=== PATIENT | male | born 1970 | race Caucasian/White ===

== ENCOUNTER 2017-03-03 12:02 | Emergency (ER) | payer OTHER ==
--- OUTSIDE RECORDS SUMMARY | 2017-03-03 12:13 | XMS REPORT ---
:1970 External Reference #:[id number] Author Organization [facility] Address [address] [address] Phone [phone] Care Team Providers Name Role Phone Cezar Giraldo III, MD Primary Care Physician Unavailable Payers Type Date Identification Numbers Payment Provider Subscriber Commercial Effective: Policy Number: Pancho Elizalde 2014 [id number] Group Name: [id number] [address] PayID: [id number] [place] [address] Problems Date Description Provider Status Onset: 09/10/2014 Ankylosing spondylitis Cezar Giraldo M.D. Active Onset: 09/10/2014 Benign localized hyperplasia of Cezar Giraldo M.D. Active prostate Onset: 09/10/2014 Anxiety state Cezar Giraldo M.D. Active Onset: 09/10/2014 Allergic rhinitis Cezar Giraldo M.D. Active Onset: 08/17/2016 Disturbance in sleep behavior Radha Rubio MD Active Onset: 01/03/2017 Obstructive sleep apnea Radha Mar DNP, RN, Active syndrome PIECE HAND-BC Onset: 01/03/2017 Hypoxemia Radha Mar DNP, RN, Active [facility] HAND-BC Onset: 01/03/2017 Hypersomnia Radha Mar DNP, RN, Active [facility]IECE HAND-BC Onset: 01/04/2017 Benign prostatic hypertrophy Cezar Giraldo M.D. 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 [employer] Cigarette Use Never Smoked Cigarettes ETOH Use Occasionally consumes alcohol Smoking Patient has never smoked Recreational Drug Use Denies Drug Use Daily Caffeine Consumes on average 48oz of iced tea per day Exercise Type/Frequency Exercises sporadically Exercise Type/Frequency Walks sporadically Allergies, Adverse Reactions, Alerts Date Description Reaction Status Severity Comments 09/10/2014 NKDA active Medications Medication Date Status Form Strength Qnty SIG Indications Ordering Provider Blood Pressure 01/02 Active Misc 1unit large cuff bp R03.0 Cezar Nevarez Monitor /2016 s machine for Kristal, Digital/Manual home bp M.D. Inflate monitoring Oxybutynin Active Tablets 10mg once a day Unknown Chloride ER /0000 ER 24HR Tamsulosin HCL Active Capsules 0.4mg once a day Unknown / Nystatin Active Powder [id number] bid as needed Unknown / t/GM Amitriptyline Active Tablets 10mg 1 tab po Unknown HCL /0000 every night Aleve Active Tablets 220mg as needed Unknown /0000 Testosterone Active Solution 100mg/ml 1 milliliters Unknown Cypionate / intramuscular for 14 days Lexapro Active Tablets 20mg 1 by mouth Unknown /0000 every day Buspirone HCL Active Tablets 15mg take one Unknown /0000 tablet by mouth twice a day Lidocaine 07/07 Hx Patches 5% 30uni apply patch M54.5 Cezar Rivera. /2016 ts up to 12 Kristal, - hours once a M.D. . 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 as needed 12/31 spasm Guaifenesin-Code 04/20 Hx Solution 100-10mg/ 118ml take 10 R05 Zsofia ine 5ML milliliters Kilo, - by mouth PIECE HAND 06/20 every evening with plenty of water as needed for cough for 7 days as needed Amoxicillin/Clav 04/20 Hx Tablets 875-125mg 14tab take 1 tab by J06.9 Zsofia ulanate /2016 s mouth twice a Kilo, Potassium - day for 7 PIECE HAND Oseltamivir 04/13 Hx Capsules 75mg 10cap 1 po bid Chilo Lopez Joann Stanley M.D.,FACP 04/18 Ciprofloxacin 00/ Hx Tablets 500mg Unknown HCL /0000 - 10/[address] HCL Hx C[address] 60mg 30cap once a day Cezar Nevarez /0000 Joann Meyers M.D. 06/20 Ibuprofen 00 Hx Capsules 200mg as needed Unknown /0000 - 07/28 Immunizations CPT Code Status Date Vaccine Lot # [id number] Given 12/19/2015 Tdap - Tetanus/Diptheria/Acellular Pertussis Vital Signs Date Vital Result Comment 02/01/2017 Weight 265.00 lb Heart Rate 85 /min BP Systolic Sitting 145 mmHg BP Diastolic Sitting 105 mmHg Body Temperature 97.1 F O2 % BldC Oximetry 96 % 01/04/2017 Height 72.25 inches 6'0.25" Weight 274.00 lb Heart Rate 92 /min BP Systolic Sitting 144 mmHg BP Diastolic Sitting 104 mmHg Body Temperature 98.3 F O2 % BldC Oximetry 97 % BMI (Body Mass Index) 36.9 kg/m2 01/03/2017 Height 73 inches 6'1" Weight 272.25 lb no shoes Heart Rate 90 /min BP Systolic Sitting 146 mmHg Lue large cuff BP Diastolic Sitting 90 mmHg Lue large cuff Respiratory Rate 18 /min O2 % BldC Oximetry 98 % On Ra BMI (Body Mass Index) 35.9 kg/m2 01/02/2017 Height 73 inches 6'1" Weight 275.00 lb Heart Rate 85 /min BP Systolic Sitting 148 mmHg BP Diastolic Sitting 94 mmHg Body Temperature 97.3 F O2 % BldC Oximetry 97 % BMI (Body Mass Index) 36.3 kg/m2 08/17/2016 Height 73 inches 6'1" Weight 278.00 lb Heart Rate 90 /min BP Systolic Sitting 142 mmHg BP Diastolic Sitting 94 mmHg Respiratory Rate 20 /min O2 % BldC Oximetry 96 % Room Air BMI (Body Mass Index) 36.7 kg/m2 Neck Circumference in inches 18 07/29/2016 Height 73 inches 6'1" Weight 276.00 lb Heart Rate 92 /min BP Systolic 130 mmHg BP Diastolic 90 mmHg Body Temperature 98.1 F O2 % BldC Oximetry 97 % BMI (Body Mass Index) 36.4 kg/m2 07/07/2016 Weight 268.00 lb Heart Rate 84 /min BP Systolic Sitting 138 mmHg BP Diastolic Sitting 80 mmHg Respiratory Rate 15 /min Body Temperature 98.0 F O2 % BldC Oximetry 98 % 06/21/2016 Weight 270.25 lb Heart Rate 86 /min BP Systolic 140 mmHg BP Diastolic 90 mmHg Body Temperature 98.4 F O2 % BldC Oximetry 96 % 04/20/2016 Weight 256.25 lb Heart Rate 111 /min BP Systolic Sitting 162 mmHg BP Diastolic Sitting 112 mmHg Body Temperature 97.5 F O2 % BldC Oximetry 98 % 04/13/2016 Weight 262.00 lb Heart Rate 76 /min BP Systolic Sitting 128 mmHg BP Diastolic Sitting 82 mmHg Respiratory Rate 15 /min Body Temperature 97.6 F O2 % BldC Oximetry 98 % 04/04/2016 Weight 264.00 lb Heart Rate 88 /min BP Systolic Sitting 148 mmHg BP Diastolic Sitting 90 mmHg Respiratory Rate 15 /min Body Temperature 98.0 F O2 % BldC Oximetry 98 % 02/24/2016 Weight 267.00 lb Heart Rate 89 /min BP Systolic 140 mmHg BP Diastolic 100 mmHg Body Temperature 97.0 F O2 % BldC Oximetry 98 % 10/29/2015 Weight 266.00 lb Heart Rate 78 /min BP Systolic Sitting 156 mmHg BP Diastolic Sitting 80 mmHg Body Temperature 97.8 F O2 % BldC Oximetry 98 % 07/29/2015 Weight 256.00 lb Heart Rate 90 /min BP Systolic Sitting 130 mmHg BP Diastolic Sitting 84 mmHg Body Temperature 97.3 F O2 % BldC Oximetry 99 % 05/29/2015 Weight 258.00 lb Heart Rate 105 /min BP Systolic Sitting 154 mmHg BP Diastolic Sitting 88 mmHg Body Temperature 96.2 F 04/08/2015 Weight 265.00 lb Heart Rate 91 /min BP Systolic Sitting 148 mmHg BP Diastolic Sitting 88 mmHg Body Temperature 97.3 F O2 % BldC Oximetry 98 % 10/22/2014 Height 73 inches 6'1" Weight 250.50 lb Heart Rate 89 /min BP Systolic Sitting 130 mmHg BP Diastolic Sitting 90 mmHg Body Temperature 96.4 F Pain Level 7 O2 % BldC Oximetry 98 % BMI (Body Mass Index) 33.0 kg/m2 09/10/2014 Height 73 inches 6'1" Weight 254.50 lb Heart Rate 73 /min BP Systolic Sitting 132 mmHg 144/106 initially BP Diastolic Sitting 94 mmHg 144/106 initially Body Temperature 97.8 F O2 % BldC Oximetry 98 % BMI (Body Mass Index) 33.6 kg/m2 Results Test Date Test Result H/L Range Note Comp Metabolic Panel 01/26/2017 Sodium 138 mmol/L 133-145 Potassium 4.3 mmol/L 3.5-5.0 Chloride 103 mmol/L 101-111 Co2 Carbon Dioxide 29 mmol/L 22-32 Anion Gap 6 mmol/L 2-11 Glucose 82 mg/dL 70-100 Blood Urea Nitrogen 8 mg/dL 6-24 Creatinine 0.87 mg/dL 0.67-1.17 BUN/Creatinine Ratio 9.2 8-20 Calcium 9.1 mg/dL 8.6-10.3 Total Protein 6.9 g/dL 6.4-8.9 Albumin 4.1 g/dL 3.2-5.2 Globulin 2.8 g/dL 2-4 Albumin/Globulin Ratio 1.5 1-3 Total Bilirubin 0.80 mg/dL 0.2-1.0 Alkaline Phosphatase 54 U/L 34-104 Alt 26 U/L 7-52 Ast 24 U/L 13-39 Egfr Non- 95.3 >60 Egfr 122.6 >60 1 Lipid Profile (Trig/Chol/HDL) 01/26/2017 Triglycerides 311 mg/dL 2 Cholesterol 189 mg/dL 3 HDL Cholesterol 34.0 mg/dL 4 LDL Cholesterol 93 mg/dL 5 Rapid Influenza A & B 04/13/2016 Influenza A Molecular POSITIVE Negative 6 Molecular Influenza B Molecular NEGATIVE Negative Laboratory test 04/13/2016 Influenza A & B SEE RESULT BELOW 7 finding Request Testosterone Free 11/11/2015 Free Testosterone 7.01 ng/dL 4.46-17.1 8 & Total ng/dl Testosterone 219 ng/dL 240-950 9 CBC Auto Diff 04/08/2015 White Blood Count 7.4 10^3/uL 3.5-10.8 Red Blood Count 4.76 10^6/uL 4.0-5.4 Hemoglobin 15.0 g/dL 14.0-18.0 Hematocrit 44 % 42-52 Mean Corpuscular Volume 92 fL 80-94 Mean Corpuscular Hemoglobin 32 pg High 27-31 Mean Corpuscular HGB Conc 34 g/dL 31-36 Red Cell Distribution Width 13 % 10.5-15 Platelet Count 263 10^3/uL 150-450 Mean Platelet Volume 9 um3 7.4-10.4 Abs Neutrophils 4.7 10^3/uL 1.5-7.7 Abs Lymphocytes 1.9 10^3/uL 1.0-4.8 Abs Monocytes 0.5 10^3/uL 0-0.8 Abs Eosinophils 0.1 10^3/uL 0-0.6 Abs Basophils 0 10^3/uL 0-0.2 Abs Nucleated RBC 0.01 10^3/uL Granulocyte % 64.2 % 38-83 Lymphocyte % 26.2 % 25-47 Monocyte % 7.0 % 1-9 Eosinophil % 2.0 % 0-6 Basophil % 0.6 % 0-2 Nucleated Red Blood Cells % 0.1 Laboratory test finding 04/08/2015 C Reactive Protein 5.18 mg/L High < 5.00 10 Erythrocyte Sed Rate 15 mm/Hr High 0-14 Lyme Disease Serology Negative Negative 11 TSH (Thyroid Stim Horm) 2.45 ?IU/mL 0.34-5.60 Basic Metabolic Panel 10/17/2014 Sodium 137 mmol/L 133-145 Potassium 4.1 mmol/L 3.5-5.0 Chloride 104 mmol/L 101-111 Co2 Carbon Dioxide 25 mmol/L 22-32 Anion Gap 8 mmol/L 2-11 Glucose 88 mg/dL 70-100 Blood Urea Nitrogen 10 mg/dL 6-24 Creatinine 0.92 mg/dL 0.67-1.17 BUN/Creatinine Ratio 10.9 8-20 Calcium 9.4 mg/dL 8.6-10.3 Egfr Non- 90.2 >60 Egfr 116.0 >60 12 Lipid Profile (Trig/Chol/HDL) 10/17/2014 Triglycerides 207 mg/dL 13 Cholesterol 207 mg/dL 14 HDL Cholesterol 35.1 mg/dL 15 LDL Cholesterol 131 mg/dL 16 1 Because ethnic data is not always readily available, this report includes an eGFR for both -Americans and non- Americans. The National Kidney Disease Education Program (NKDEP) does not endorse the use of the MDRD equation for patients that are not between the ages of 18 and 70, are , have extremes of body size, muscle mass, or nutritional status, or are non- or non-. According to the National Kidney Foundation, irrespective of diagnosis, the stage of the disease is based on the level of kidney function: Stage Description GFR(mL/min/1.73 m(2)) 1 Kidney damage with normal or decreased GFR 90 2 Kidney damage with mild decrease in GFR 60-89 3 Moderate decrease in GFR 30-59 4 Severe decrease in GFR 15-29 5 Kidney failure <15 (or dialysis) 2 Desirable: <150 Borderline High: 150-199 High: 200-499 Very High: >500 3 Desirable: <200 Borderline High: 200-239 High: >239 4 Low: <40 Desirable: 40-60 High: >60 5 Desirable: <100 Near Optimal: 100-129 Borderline High: 130-159 High: 160-189 Very High: >189 6 Nut Steamer: [id number] BRUNO VASQUEZ 7 SEE RESULT BELOW Name: YISEL ELIZALDE : [address]: Anibal Roberto MD Acct: [id number] Unit: [id number] AGE: 45 Location: [facility] Re04/13/16 SEX: M Status: REG REF SPEC: [id number] TERE: 04/13/16-[address]: Chilo Roberto MD REQ: [id number] RECD: 04/13/16 STATUS: COMP _ SOURCE: [facility]: ORDERED: Flu A B Request COMMENTS: [id number] Procedure Result Reported Site Rapid Influenza A B Request Final 04/13/162030 ML Specimen received for Influenza A/B Molecular testing * ML - MAIN LAB ([facility]) . END OF REPORT * ML=Testing performed at Main Lab DEPARTMENT OF PATHOLOGY, [address] [place] [address] Arnulfo Galindo M.D. Director [facility] # [id number] 8 ADDITIONAL INFORMATION Testing performed by [facility]. This test was developed and its performance characteristics determined by [facility] in a manner consistent with CLIA requirements. This test has not been cleared or approved by the U.S. Food and Drug Administration. 9 ADDITIONAL INFORMATION Testing performed by Liquid Chromatography-Tandem Mass Spectrometry (LC-MS/MS). This test was developed and its performance characteristics determined by [facility] in a manner consistent with CLIA requirements. This test has not been cleared or approved by the U.S. Food and Drug Administration. Test Performed by: [place] [address] Hydraulic Press Operator: Farhat Yeung II, M.D., Ph.D. 10 Acute inflammation: >10.00 11 Serologic response to B. burgdorferi infection is not detected, but cannot rule out early infection during which low or undetectable antibody levels to B. burgdorferi may be present. If clinically indicated, a new serum specimen should be submitted in 7-14 days. Test Performed by: [place] [address] Hydraulic Press Operator: Farhat Yeung II, M.D., Ph.D. 12 Because ethnic data is not always readily available, this report includes an eGFR for both -Americans and non- Americans. The National Kidney Disease Education Program (NKDEP) does not endorse the use of the MDRD equation for patients that are not between the ages of 18 and 70, are , have extremes of body size, muscle mass, or nutritional status, or are non- or non-. According to the National Kidney Foundation, irrespective of diagnosis, the stage of the disease is based on the level of kidney function: Stage Description GFR(mL/min/1.73 m(2)) 1 Kidney damage with normal or decreased GFR 90 2 Kidney damage with mild decrease in GFR 60-89 3 Moderate decrease in GFR 30-59 4 Severe decrease in GFR 15-29 5 Kidney failure <15 (or dialysis) 13 Desirable <150 Borderline high 150-199 High 200-499 Very High >500 14 Desirable <200 Borderline high 200-239 High >239 15 Low <40 Desirable: 40-60 High: >60 16 Desirable: <100 mg/dL Near Optimal: 100-129 mg/dL Borderline High: 130-159 mg/dL High: 160-189 mg/dL Very High: >189 mg/dL Procedures Date CPT Code Description Status 12/12/2016 83359 Polysomnography Sleep Staging 4+ Parameters W/Cpap Completed Encounters Type Date Location Provider CPT E/M Dx Office Visit 01/04/2017 2:40p [facility] Internal Medicine Cezar Giraldo, [address]755 R03.0 - Alexis Crook E78.2 G47.33 M45.9 N40.0 F32.9 Office Visit 01/03/2017 1:45p Pul[facility]ology [facility] Sleep Radha Mar, 28508 G47.33 [facility] ISAURA RN, [facility]- G47.14 Office Visit 01/02/2017 2:00p [facility] Internal Medicine Cezar Giraldo, 69630 R03.0 Alexis Crook Office Visit 08/17/2016 8:00a [facility] [address] R09.02 [facility] R40.0 R12 R45.1 E66.09 Z68.36 Office Visit 07/29/2016 10:40a [facility] Internal Medicine Cezar Giraldo, [address]3466 M54.5 - Alexis Crook Office Visit 07/07/2016 4:00p [facility] Internal Medicine Cezar Giraldo, 48420 M54.5 - Alexis Crook Office Visit 06/21/2016 4:00p [facility] Internal Medicine Cezar Giraldo, 40980 M54.5 - Alexis Crook Office Visit 04/20/2016 11:00a [facility] Internal Medicine Armando Boateng, [facility] [address] J06.9 - [address] R05 J09.x2 Office Visit 04/13/2016 11:10a [facility] Internal Medicine Chilo Roberto, [address]185 J11.1 - [place] Dylan Crook,FACP Office Visit 04/04/2016 2:00p [facility] Internal Medicine Cezar Giraldo, 68162 R03.0 - Alexis Crook Office Visit 02/24/2016 4:20p [facility] Internal Medicine Cezar Giraldo, 54586 R03.0 - Alexis Crook J06.9 Office Visit 10/29/2015 1:00p [facility] Internal Medicine Cezar Giraldo, 40809 E29.1 - Alexis Crook F32.9 Office Visit 07/29/2015 4:20p [facility] Internal Medicine Cezar Giraldo, 95111 B35.1 - Andrzej Crook L30.9 Office Visit 05/29/2015 4:20p [facility] Internal Medicine Tracey Leslie M.D. 80967 J01.90 - Andrzej Office Visit 04/08/2015 11:40a [facility] Internal Medicine Cezar Giraldo, 06936 R51 - Andrzej Crook F41.9 Office Visit 10/22/2014 1:00p [facility] Internal Medicine Cezar Giraldo, 07144 724.2 - Andrzej Crook Office Visit 09/10/2014 10:40a [facility] Internal Medicine Cezar Giraldo, 67531 720.0 - Andrzej Crook 600.20 300.00 477.9 V77.1 V77.91 Plan of Care Future Appointment(s):03/03/2017 8:15 am - Radha Mar DNP, RN, PIECE HAND- at [facility]02/01/2017 - Cezar Giraldo M.D.R03.0 Elevated blood-pressure reading, w/o diagnosis of htnJ06.9 Acute upper respiratory infection, [id number] Mixed hyperlipidemia
[2017-03-03] MEDS ORDERED: NS 0.9% 1000 ML* 2,000 ML IV ONE (12:57)
[2017-03-03] MEDS ORDERED: Ondansetron INJ* 2 MG/ML VIAL IV ONE (12:57)
[2017-03-03 13:02] LABS: ABS Basophils 0 10^3/ul (0-0.2); ABS Eosinophils 0.1 10^3/ul (0-0.6); ABS Lymphocytes 1.7 10^3/ul (1.0-4.8); ABS Monocytes 0.3 10^3/ul (0-0.8); ABS Neutrophils 4.8 10^3/ul (1.5-7.7); ABS Nucleated RBC 0 10^3/ul; Eosinophil % 1.3 % (0-6); Hematocrit 43 % (42-52); Hemoglobin 15.2 g/dl (14.0-18.0); Lymphocyte % 23.9 % (25-47); Mean Corpuscular HGB Conc 35 g/dl (31-36); Mean Corpuscular Hemoglobin 32 pg (27-31); Mean Corpuscular Volume 90 fL (80-94); Mean Platelet Volume 8 um3 (7.4-10.4); Nucleated Red Blood Cells % 0.3; Platelet Count 261 10^3/ul (150-450); Red Blood Count 4.81 10^6/ul (4.0-5.4); Red Cell Distribution Width 13 % (10.5-15); White Blood Count 6.9 10^3/ul (3.5-10.8)
[2017-03-03 13:17] LABS: EGFR Non-African American 80.2 (>60)
[2017-03-03] MEDS ORDERED: Lidocaine 2% VISCOUS* 15 ML UDC PO ONE (13:27)
[2017-03-03] MEDS: Al Hydrox/Mg Hydrox/Simet LIQ* 30 ML UDC PO ONE ×2 (13:37→13:39)
[2017-03-03 15:14] LABS: Urine Appearance Clear; Urine Blood Negative (Negative); Urine Color Yellow; Urine Ketones Negative (Negative); Urine Protein Negative (Negative); Urine Specific Gravity 1.008 (1.010-1.030); Urine Urobilinogen Negative (Negative)
--- NOTE | 2017-03-03 15:59 | ED ---
Panchito Graham Nilda, scribed for Dimas Acuña MD on 03/03/17 at 1220 . Abdominal Pain/Male - HPI Summary HPI Summary: This patient is a 46 year old M sent from with a chief complaint of intermittent moderate diffuse abd pain for the past 3 days. The patient rates the pain 5/10 in severity. Symptoms aggravated by nothing, and alleviated by BM and flatulence. Patient reports increased flatus, diarrhea (began 3 days ago lasting until yesterday), diaphoresis (this morning), dizziness (yesterday), nausea, and loss of appetite (an erika and yogurt for past few days). Patient denies CP, SOB, and fever. Pt states he's currently on medications for thyroid, anxiety, depression, and prostate issues. PMHx includes GERD, and elevated BP. - History of Current Complaint Chief Complaint: EDAbdPain Stated Complaint: ABD PAIN Hx Obtained From: Patient Onset/Duration: Sudden Onset, Lasting Days - 3 days, Still Present Timing: Intermittent Severity Currently: Moderate Pain Intensity: 5 Pain Scale Used: 0-10 Numeric Location: Diffuse Radiates: No Aggravating Factor(s): Nothing Alleviating Factor(s): Bowel Movement, Other: - flatulence Associated Signs And Symptoms: Positive: Other - increased flatus, diarrhea ( began 3 days ago lasting until yesterday), diaphoresis (this morning), dizziness (yesterday), nausea, and loss of appetite (an erika and yogurt for past few days). Patient denies CP, SOB, and fever. 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 Negative: Fever, Chills Negative: Erythema Negative: Sore Throat Negative: Chest Pain Negative: Shortness Of Breath, Cough Positive: Abdominal Pain, Diarrhea, Nausea, Other - increased flatus, loss of appetite. Negative: Vomiting Negative: dysuria, hematuria Negative: Myalgia, Edema Negative: Rash Neurological: Other - dizziness All Other Systems Reviewed And Are Negative: Yes Physical Exam - Summary Physical Exam Summary: Constitutional: Well-developed, Well-nourished, Alert. (-) Distressed Skin: Warm, Dry HENT: Normocephalic; Atraumatic Eyes: Conjunctiva normal Neck: Musculoskeletal ROM normal neck. (-) JVD, (-) Stridor, (-) Tracheal deviation Cardio: Rhythm regular, rate normal, Heart sounds normal; Intact distal pulses; The pedal pulses are 2+ and symmetric. Radial pulses are 2+ and symmetric. (-) Murmur Pulmonary/Chest wall: Effort normal. (-) Respiratory distress, (-) Wheezes, (-) Rales Abd: Soft, (-) Tenderness, (-) Distension, (-) Guarding, (-) Rebound Musculoskeletal: (-) Edema Lymph: (-) Cervical adenopathy Neuro: Alert, Oriented x3 Psych: Mood and affect Normal Triage Information Reviewed: Yes Vital Signs On Initial Exam: Initial Vitals Temp Pulse Resp BP Pulse Ox 97.3 F 80 18 170/92 96 03/03/17 12:04 03/03/17 12:04 03/03/17 12:04 03/03/17 12:04 03/03/17 12:04 Vital Signs Reviewed: Yes Diagnostics - Vital Signs Vital Signs Temp Pulse Resp BP Pulse Ox 03/03/17 12:04 97.3 F 80 18 170/92 96 - Laboratory Lab Results: Lab Results 03/03/17 03/03/17 03/03/17 Range/Units 12:56 12:56 12:56 WBC 6.9 (3.5-10.8) 10^3/ul RBC 4.81 (4.0-5.4) 10^6/ul Hgb 15.2 (14.0-18.0) g/dl Hct 43 (42-52) % MCV 90 (80-94) fL MCH 32 H (27-31) pg MCHC 35 (31-36) g/dl RDW 13 (10.5-15) % Plt Count 261 (150-450) 10^3/ul MPV 8 (7.4-10.4) um3 Neut % (Auto) 69.4 (38-83) % Lymph % (Auto) 23.9 L (25-47) % Clare % (Auto) 4.7 (1-9) % Eos % (Auto) 1.3 (0-6) % Baso % (Auto) 0.7 (0-2) % Absolute Neuts (auto) 4.8 (1.5-7.7) 10^3/ul Absolute Lymphs (auto) 1.7 (1.0-4.8) 10^3/ul Absolute Monos (auto) 0.3 (0-0.8) 10^3/ul Absolute Eos (auto) 0.1 (0-0.6) 10^3/ul Absolute Basos (auto) 0 (0-0.2) 10^3/ul Absolute Nucleated RBC 0 10^3/ul Nucleated RBC % 0.3 Sodium 138 (133-145) mmol/L Potassium 3.9 (3.5-5.0) mmol/L Chloride 104 (101-111) mmol/L Carbon Dioxide 25 (22-32) mmol/L Anion Gap 9 (2-11) mmol/L BUN 12 (6-24) mg/dL Creatinine 1.01 (0.67-1.17) mg/dL Est GFR ( Amer) 103.2 (>60) Est GFR (Non-Af Amer) 80.2 (>60) BUN/Creatinine Ratio 11.9 (8-20) Glucose 103 H (70-100) mg/dL Lactic Acid 0.8 (0.5-2.0) mmol/L Calcium 9.2 (8.6-10.3) mg/dL Total Bilirubin 0.80 (0.2-1.0) mg/dL AST 22 (13-39) U/L ALT 27 (7-52) U/L Alkaline Phosphatase 44 (34-104) U/L C-Reactive Protein 8.08 H (< 5.00) mg/L Total Protein 7.0 (6.4-8.9) g/dL Albumin 4.1 (3.2-5.2) g/dL Globulin 2.9 (2-4) g/dL Albumin/Globulin Ratio 1.4 (1-3) Lipase 10 L (11.0-82.0) U/L Urine Color Urine Appearance Urine pH (5-9) Ur Specific [place] (1.010-1.030) Urine Protein (Negative) Urine Ketones (Negative) Urine Blood (Negative) Urine Nitrate (Negative) Urine Bilirubin (Negative) Urine Urobilinogen (Negative) Ur Leukocyte Esterase (Negative) Urine WBC (Auto) (Absent) Urine RBC (Auto) (Absent) Urine Bacteria (Absent) Urine Glucose (Negative) 03/03/17 Range/Units 14:50 WBC (3.5-10.8) 10^3/ul RBC (4.0-5.4) 10^6/ul Hgb (14.0-18.0) g/dl Hct (42-52) % MCV (80-94) fL MCH (27-31) pg MCHC (31-36) g/dl RDW (10.5-15) % Plt Count (150-450) 10^3/ul MPV (7.4-10.4) um3 Neut % (Auto) (38-83) % Lymph % (Auto) (25-47) % Clare % (Auto) (1-9) % Eos % (Auto) (0-6) % Baso % (Auto) (0-2) % Absolute Neuts (auto) (1.5-7.7) 10^3/ul Absolute Lymphs (auto) (1.0-4.8) 10^3/ul Absolute Monos (auto) (0-0.8) 10^3/ul Absolute Eos (auto) (0-0.6) 10^3/ul Absolute Basos (auto) (0-0.2) 10^3/ul Absolute Nucleated RBC 10^3/ul Nucleated RBC % Sodium (133-145) mmol/L Potassium (3.5-5.0) mmol/L Chloride (101-111) mmol/L Carbon Dioxide (22-32) mmol/L Anion Gap (2-11) mmol/L BUN (6-24) mg/dL Creatinine (0.67-1.17) mg/dL Est GFR ( Amer) (>60) Est GFR (Non-Af Amer) (>60) BUN/Creatinine Ratio (8-20) Glucose (70-100) mg/dL Lactic Acid (0.5-2.0) mmol/L Calcium (8.6-10.3) mg/dL Total Bilirubin (0.2-1.0) mg/dL AST (13-39) U/L ALT (7-52) U/L Alkaline Phosphatase (34-104) U/L C-Reactive Protein (< 5.00) mg/L Total Protein (6.4-8.9) g/dL Albumin (3.2-5.2) g/dL Globulin (2-4) g/dL Albumin/Globulin Ratio (1-3) Lipase (11.0-82.0) U/L Urine Color Yellow Urine Appearance Clear Urine pH 7.0 (5-9) Ur Specific [place] 1.008 L (1.010-1.030) Urine Protein Negative (Negative) Urine Ketones Negative (Negative) Urine Blood Negative (Negative) Urine Nitrate Negative (Negative) Urine Bilirubin Negative (Negative) Urine Urobilinogen Negative (Negative) Ur Leukocyte Esterase Negative (Negative) Urine WBC (Auto) Absent (Absent) Urine RBC (Auto) Absent (Absent) Urine Bacteria Absent (Absent) Urine Glucose Negative (Negative) Result Diagrams: 03/03/17 12:56 03/03/17 12:56 Lab Statement: Any lab studies that have been ordered have been reviewed, and results considered in the medical decision making process. Re-Evaluation - Re-Evaluation First Eval Re-Evaluation Time: 15:45 Change: Improved Comment: On re-exam, abd is nontender. Pt agreeable for discharge. Abdominal Pain Fem Course/Dx - Course Assessment/Plan: This patient is a 46 year old M sent from with a chief complaint of intermittent moderate abd pain for the past 3 days. The patient rates the pain 5/10 in severity. Symptoms aggravated by nothing, and alleviated by BM and flatulence. Patient reports increased flatus, diarrhea (began 3 days ago lasting until yesterday), diaphoresis (this morning), dizziness (yesterday) , nausea, and loss of appetite (an erika and yogurt for past few days). Patient denies CP, SOB, and fever. Pt states he's currently on medications for thyroid, anxiety, depression, and prostate issues. PMHx includes GERD, and elevated BP. In the ED course, the patient was given Lidocaine 2% Viscous, IV fluids, Zofran, and Maalox. The pt is stable and will be D/C with a diagnosis of grastroenteritis with a prescription for Zofran. He was instructed to follow BRAT diet and take Maalox every 4 hours as needed. Pt was advised to f/u with Dr. Giraldo on Monday (03/06/17). No clinical evidence for hernias or ulcers, do not suspect acute surgical abdomen, pain resolved with GI cocktail in the setting of gastroenteritis sx of vomiting and diarrhea. - Diagnoses Provider Diagnoses: Gastroenteritis Discharge - Discharge Plan Condition: Stable Disposition: HOME Prescriptions: Ondansetron ODT TAB* [Zofran 4 MG Odt TAB*] 4 mg PO Q8H PRN #8 tab.odt PRN Reason: Nausea/Vomiting Patient Education Materials: Diet for Stomach Ulcers and Gastritis (ED), Gastroenteritis (ED) Forms: *Work Release Referrals: Cezar Giraldo MD [Primary Care Provider] - 03/06/17 Additional Instructions: Use Maalox every 4 hours as needed. RETURN TO THE EMERGENCY DEPARTMENT FOR CHANGING OR WORSENING SYMPTOMS. The documentation as recorded by the Panchito schaffer Nilda accurately reflects the service I personally performed and the decisions made by , Dimas Acuña MD.
[2017-03-03 16:05] VITALS: BP 151/96
== END 2017-03-03 16:04 | disposition home or self-care (01) ==
LOC: ED 12:02
DX: K52.9 Noninfective gastroenteritis and colitis, unspecified (principal); R10.9 Unspecified abdominal pain; R42 Dizziness and giddiness; R11.0 Nausea; R63.0 Anorexia
CPT/HCPCS: 36415; 80053; 81003; 83605; 83690; 85025; 86140; 96374; 99283; A9270-GY; J2405

== ENCOUNTER 2018-04-02 10:53 | Emergency (ER) | payer OTHER ==
--- NOTE | 2018-04-02 11:47 | ED ---
Skin Complaint - HPI Summary HPI Summary: Pt is a 47 y/o M presenting to the ED with a chief complaint of a lump on the L side of his neck. It has been present since 2016 or 2017, he made his PCP aware , and it did not bother him since then. It has always been hard and small, and never gave him any pain, irritation, or itching. However, on 03/31/18, he noticed it had doubled in size, and it is now inflamed, swollen, hurts to the touch, and it is painful to move his neck. - History of Current Complaint Chief Complaint: EDNeckComplaint Time Seen by Provider: 04/02/18 11:28 Stated Complaint: LUMP IN NECK/POSS FEVER Hx Obtained From: Patient Onset/Duration: Started Weeks Ago, Still Present, Worse Since - 03/31/18 Timing: Constant Onset Severity: Mild Current Severity: Moderate Pain Intensity: 4 Pain Scale Used: 0-10 Numeric Skin Location: Neck - left Character: Swelling, Pain, Redness, Painful Aggravating Symptom(s): Clothing, Showering, Touch Alleviating Symptom(s): Nothing Associated Signs & Symptoms: Negative - Allergy/Home Medications Allergies/Adverse Reactions: Allergies Allergy/AdvReac Type Severity Reaction Status Date / Time No Known Allergies Allergy Verified 04/02/18 11:00 Home Medications: Home Medications Al Hydrox/Mg Hydrox/Tyrone BULK* [Mylanta - BULK BOT*] 20 mg PO Q4HR PRN 04/02/18 [History Confirmed 04/02/18] Naproxen Sodium [Aleve] 220 mg PO BID PRN 04/02/18 [History Confirmed 04/02/18] Nystatin TOP POWDER* 1 applic TOPICAL BID PRN 04/02/18 [History Confirmed ] PMH/Surg Hx/FS Hx/Imm Hx Previously Healthy: Yes Endocrine/Hematology History: Denies: Hx Diabetes Cardiovascular History: Reports: Hx Angina, Hx Hypertension, Other Cardiovascular Problems/Disorders - Elevated BP with no Dx of HTN GI History: Reports: Hx Gastroesophageal Reflux Disease, Other GI Disorders - GERD History: Denies: Hx Renal Disease Musculoskeletal History: Reports: Hx Back Problems Psychiatric History: Reports: Hx Depression Infectious Disease History: No Infectious Disease History: Denies: Traveled Outside the [place] in Last 30 Days - Family History Known Family History: Positive: Hypertension - Social History Alcohol Use: Rare Substance Use Type: Reports: None Smoking Status (MU): Never Smoked Tobacco Review of Systems Negative: Fever Positive: Other - L neck abscess All Other Systems Reviewed And Are Negative: Yes Physical Exam - Summary Physical Exam Summary: Appearance: The patient is well-nourished in no acute distress and in no acute pain. Skin: There is an 8cm by 4cm erythematous and swollen area on L side of the neck. There is a central depression surrounded by a 4cm by 3cm area of induration. The area is tender. HEENT: The head is normocephalic and atraumatic. The pupils are equal and reactive. The conjunctivae are clear and without drainage. Nares are patent and without drainage. Mouth reveals moist mucous membranes and the throat is without erythema and exudate. The external ears are intact. The ear canals are patent and without drainage. The tympanic membranes are intact. Neck: The neck is supple with full range of motion and non-tender. There are no carotid bruits. There is no neck vein distension. Respiratory: Chest is non-tender. Lungs are clear to auscultation and breath sounds are symmetrical and equal. Cardiovascular: Heart is regular rate and rhythm. There is no murmur or rub auscultated. There is no peripheral edema and pulses are symmetrical and equal. Abdomen: The abdomen is soft and non-tender. There are normal bowel sounds heard in all four quadrants and there is no organomegaly palpated. Musculoskeletal: There is no back tenderness noted. Extremities are non-tender with full range of motion. There is good capillary refill. There is no peripheral edema or calf tenderness elicited. Neurological: Patient is alert and oriented to person, place and time. The patient has symmetrical motor strength in all four extremities. Cranial nerves are grossly intact. Deep tendon reflexes are symmetrical and equal in all four extremities. Psychiatric: The patient has an appropriate affect and does not exhibit any anxiety or depression. Triage Information Reviewed: Yes Vital Signs On Initial Exam: Initial Vitals Temp Pulse Resp BP Pulse Ox 98.6 F 82 16 185/105 97 04/02/18 10:55 04/02/18 10:55 04/02/18 10:55 04/02/18 10:55 04/02/18 10:55 Vital Signs Reviewed: Yes Diagnostics - Vital Signs Vital Signs Temp Pulse Resp BP Pulse Ox 04/02/18 10:55 98.6 F 82 16 185/105 97 - Laboratory Lab Statement: Any lab studies that have been ordered have been reviewed, and results considered in the medical decision making process. - Ultrasound No standard instances Ultrasound Interpretation Completed By: Radiologist Summary of Ultrasound Findings: Soft Tissue US - Left neck. Hypoechoic complex mass in the left neck with adjacent subcutaneous. hypervascularity. The possibility of an infected epidermal inclusion cyst or sebaceous. cyst be considered. The carotid lymph node is not totally excluded. ED physician has reviewed this report. Course/Dx - Course Course Of Treatment: Mr. Jovel has had a firm nontender nodule on the left side of his neck for couple of years. In the last few days it has gotten bigger, painful and red. He was nontoxic in appearance and his vitals were stable. He had cellulitis in the left side of his neck over a firm area that was tender. This was not fluctuant and I doubt that it's an abscess. An ultrasound was obtained which was read as likely sebaceous cyst with infection. At this point I will treat him with antibiotics and close follow-up and may need to have that cyst removed at some point. - Diagnoses Provider Diagnoses: Cellulitis, Sebaceous cyst Discharge - Sign-Out/Discharge Documenting (check all that apply): Patient Departure Patient Received Moderate/Deep Sedation with Procedure: No - Discharge Plan Condition: Stable Disposition: HOME Prescriptions: Cephalexin CAP* [Keflex 500 CAP*] 500 mg PO QID #40 cap HYDROcodone/ACETAMIN 5-325 MG* [[place] 5-325 TAB*] 1 tab PO Q6H PRN #20 tab MDD 4 PRN Reason: Pain Referrals: Cezar Giraldo MD [Primary Care Provider] - Additional Instructions: Please take your prescribed medications as instructed. Follow up with Dr. Giraldo in the next 2-3 days. Return to the emergency department with any new or worsening symptoms. - Billing Disposition and Condition Condition: STABLE Disposition: Home - Attestation Statements Document Initiated by Scribe: Yes Documenting Scribe: Tomasa Valera Provider For Whom Scribe is Documenting (Include Credential): Evan Evans MD. Scribe Attestation: Tomasa Graham, scribed for Evan Evans MD. on 04/02/18 at 1447. Scribe Documentation Reviewed: Yes Provider Attestation: The documentation as recorded by the scribe, Tomasa Valera accurately reflects the service I personally performed and the decisions made by me, Evan Evans MD. Status of Scribe Document: Viewed
[2018-04-02 13:39] VITALS: BP 180/99
== END 2018-04-02 13:38 | disposition home or self-care (01) ==
LOC: ED 10:53
DX: L03.221 Cellulitis of neck (principal); L72.3 Sebaceous cyst
CPT/HCPCS: 76536; 99282

== ENCOUNTER → 2018-04-04 20:02 | Emergency (ER) | payer OTHER ==
[~2018-04-04 20:02] MED LIST: Lidocaine 2% EPI 1:200000 MPF*10-20 ML VIAL INJ ONE; Sulfamethox/Trimethoprim DS 800/160* TAB PO ONE
--- NOTE | 2018-04-04 23:12 | ED ---
Skin Complaint - HPI Summary HPI Summary: 47-year-old male presents with complaints of red tender mass to the left side of his neck that has progressively worsened. He states he has had a small mass side of his neck that he first noticed in 2016 or 2017 which is primary care provider was aware of and is followed. He states that it his have not bothered him at all until 03/31/2016 when he noticed that it began increasing in size, became erythematous, and very tender to touch or with any movement of his neck. He was seen at this facility on 04/02/2018 for the same. Soft tissue ultrasound performed 04/02/18 showed a hypoechoic complex mass just under the subcutaneous layer measuring 1.6 x 1.3 x 2.0 cm likely representing an infected epidermal inclusion cyst or sebaceous cyst although the possibility of a necrotic lymph node was not excluded. He was discharged home on Keflex 500 mg 4 times a day and provided a prescription for hydrocodone-acetaminophen 5 mg/ 325 mg as needed for pain. Patient states he's been compliant with the antibiotics however the lesion has continued to increase in size and is getting minimal relief from the pain medication. Denies fever, chills, malaise, headache, weakness, dizziness, or drainage from the wound. - History of Current Complaint Chief Complaint: EDRashSkinAbscess Time Seen by Provider: 04/04/18 21:40 Stated Complaint: LUMP ON NECK Hx Obtained From: Patient Pain Intensity: 6 - Allergy/Home Medications Allergies/Adverse Reactions: Allergies Allergy/AdvReac Type Severity Reaction Status Date / Time No Known Allergies Allergy Verified 04/04/18 20:07 PMH/Surg Hx/FS Hx/Imm Hx Endocrine/Hematology History: Denies: Hx Diabetes Cardiovascular History: Reports: Hx Angina, Hx Hypertension, Other Cardiovascular Problems/Disorders - Elevated BP with no Dx of HTN GI History: Reports: Hx Gastroesophageal Reflux Disease, Other GI Disorders - GERD History: Denies: Hx Renal Disease Musculoskeletal History: Reports: Hx Back Problems Psychiatric History: Reports: Hx Depression Infectious Disease History: No Infectious Disease History: Denies: Traveled Outside the [place] in Last 30 Days - Family History Known Family History: Positive: Hypertension - Social History Occupation: Employed Full-time Lives: With Family Alcohol Use: Rare Substance Use Type: Reports: None Smoking Status (MU): Never Smoked Tobacco Review of Systems Positive: Fatigue. Negative: Fever, Chills Negative: Palpitations, Chest Pain Negative: Shortness Of Breath, Cough Negative: Abdominal Pain, Vomiting, Diarrhea, Nausea Positive: no symptoms reported Skin: Other - See HPI Neurological: Negative All Other Systems Reviewed And Are Negative: Yes Physical Exam - Summary Physical Exam Summary: GENERAL APPEARANCE: Well developed, well nourished, alert and cooperative, and appears to be in no acute distress. NECK: Neck supple, non-tender without lymphadenopathy. CARDIAC: Normal S1 and S2. No S3, S4 or murmurs. Rhythm is regular. There is no peripheral edema, cyanosis or pallor. Extremities are warm and well perfused. Capillary refill is less than 2 seconds. LUNGS: Clear to auscultation without rales, rhonchi, wheezing or diminished breath sounds. ABDOMEN: Positive bowel sounds. Soft, nondistended, nontender. No guarding or rebound. No masses or hepatosplenomegally. MUSKULOSKELETAL: ROM intact to all extremities. No joint erythema or tenderness. Normal muscular development. Normal gait. SKIN: 4 cm x 3 cm area of tenderness, erythema, and induration noted to the left side of neck. Small amount of fluctuance noted with multiple pustules over the induration. Triage Information Reviewed: Yes Vital Signs On Initial Exam: Initial Vitals Temp Pulse Resp BP Pulse Ox 97.2 F 80 16 150/90 97 04/04/18 20:04 04/04/18 20:04 04/04/18 20:04 04/04/18 20:04 04/04/18 20:04 Vital Signs Reviewed: Yes Procedures - Procedure Summary Procedure Summary: PROCEDURE NOTE: Incision and drainage infected sebaceous cyst of the left neck PROCEDURE: Informed consent was obtained and timeout protocol was performed prior to initiating the procedure. The skin was prepped with chlorhexadine solution and the area draped in the usual manner. The site was anesthetized with 2% lidocaine with epinephrine. A 1.5 cm linear incision was made and moderate amount of purulent material was expressed. A wound culture was obtained and sent. The abscess was explored thoroughly and sequestered pockets were opened. The wound was then irrigated copiously with sterile saline and packed with plain 1/4 inch gauze packing. A bulky gauze dressing was then placed. Bleeding was minimal. The patient tolerated the procedure well without complications. Standard post- procedure care is explained and return precautions were given. Diagnostics - Vital Signs Vital Signs Temp Pulse Resp BP Pulse Ox 04/04/18 22:00 62 95 04/04/18 21:57 60 97 04/04/18 21:54 61 147/85 97 04/04/18 20:04 97.2 F 80 16 150/90 97 - Laboratory Lab Statement: Any lab studies that have been ordered have been reviewed, and results considered in the medical decision making process. Course/Dx - Course Course Of Treatment: 47-year-old male presents with complaints of red tender mass to the left side of his neck that has progressively worsened. He states he has had a small mass side of his neck that he first noticed in 2016 or 2016 which is primary care provider was aware of and is followed. He states that it his have not bothered him at all until 03/31/2016 when he noticed that it began increasing in size, became erythematous, and very tender to touch or with any movement of his neck. He was seen at this facility on 04/02/2018 for the same. Soft tissue ultrasound performed 04/02/18 showed a hypoechoic complex mass just under the subcutaneous layer measuring 1.6 x 1.3 x 2.0 cm likely representing an infected epidermal inclusion cyst or sebaceous cyst although the possibility of a necrotic lymph node was not excluded. He was discharged home on Keflex 500 mg 4 times a day and provided a prescription for hydrocodone-acetaminophen 5 mg/325 mg as needed for pain. Patient states he's been compliant with the antibiotics however the lesion has continued to increase in size and is getting minimal relief from the pain medication. Denies fever, chills, malaise, headache, weakness, dizziness, or drainage from the wound. Afebrile. Hypertensive but vital signs otherwise stable. Exam reveals an adult male in no acute distress with a 4 cm x 3 cm area of tenderness, erythema, induration, mild fluctuance, and multiple pustules covering the indurated tissue. The ultrasound results from 04/02/2018 were reviewed. Based on his history and these findings symptoms likely represent a infected sebaceous cyst. An incision and drainage was performed which the patient tolerated well. A wound culture was obtained and sent to lab. Since patient continued to have worsening of symptoms while taking Keflex I am going to discontinue this and have him start Bactrim DS 1 tab twice a day 7 days. He received the first dose in the emergency room. He is to continue to use the hydrocodone- acetaminophen as needed for pain. He is to follow-up with his primary care provider or return here or to urgent care in 2 days to have the packing removed and wound rechecked. Anticipatory guidance, appropriate wound care, and warning symptoms reviewed with the patient. Verbalizes understanding and agrees with plan of care. - Differential Diagnoses - Skin Complaint Differential Diagnoses: Abscess, Cellulitis - Diagnoses Provider Diagnoses: Infected sebaceous cyst Discharge - Sign-Out/Discharge Documenting (check all that apply): Patient Departure Patient Received Moderate/Deep Sedation with Procedure: No - Discharge Plan Condition: Stable Disposition: HOME Prescriptions: Sulfamethox/Trimethoprim DS* [Bactrim DS 800/160 TAB*] 1 tab PO BID #14 tab Patient Education Materials: Abscess (ED) Forms: *Work Release Referrals: Cezar Giraldo MD [Primary Care Provider] - 2 Days Additional Instructions: Your symptoms appear to be from an infected sebaceous cyst. We performed an incision and drainage of the infected material this evening. Once the infection has subsided you will likely need to have follow-up with general surgery to have the cyst fully removed. Stop taking the cephalexin (Keflex) and start Bactrim DS 1 tab twice a day for 7 days. We gave you the first dose in the emergency room. Continue to use the pain medication that was prescribed to you previously as directed. Leave the dressing that was placed over the wound in place for the next 24 hours. If you have some bleeding through the gauze simply add additional cause to the dressing. If the dressing becomes loosen falls off you may replace with a new dressing. There was some packing placed inside the wound in order to keep it open and allow the infection continued to drain. You should leave this packing in place until you follow up to have the wound rechecked. If the packing accidentally falls out do not try to replace. Follow-up with your primary care provider in 2 days to have the packing removed and wound checked. If you cannot get in with your primary care provider return here or to the urgent care center. Return to the emergency room if you develop a fever greater than 100.5 F, have worsening pain that is not managed with your pain medication, you become weak or dizzy, have shaking chills, or any worsening of symptoms. - Billing Disposition and Condition Condition: STABLE Disposition: Home
[2018-04-04 23:33] VITALS: BP 147/84
== END | disposition home or self-care (01) ==
LOC: ED 20:02
DX: L72.3 Sebaceous cyst (principal)
CPT/HCPCS: 10060; 87070; 87205; 87640; 87641; 99283; A9270-GY

== ENCOUNTER 2018-04-11 11:42 | Inpatient (IN) | payer OTHER ==
--- NOTE | 2018-04-11 11:54 | ED ---
HPI Chest Pain - HPI Summary HPI Summary: This pt is a 47 y/o male presenting to [facility] via EMS from PCP's office for left sided chest pain since 03:00 today. Pt reports his left sided chest pain began at 03:00 and woke him up from sleep. He notes he felt confused, "out of it," with a headache and tingly all over his body. Pt reports he felt well prior to going to sleep last night. He notes his chest pain became worse at 06:00. EMS states pt went to see his PCP today for a dressing change. While at his PCP's office pt developed a 7/10 left sided chest pain, nonradiating and also was SOB , diaphoretic and pale. Pt reports he felt lightheaded like passing out and was unstable on his feet. EMS states pt had a heart rate of 35 and BP of 82/61. EMS administered 324 mg ASA and nitroglycerin x1 with some relief. - History of Current Complaint Chief Complaint: EDChestPainROMI Hx Obtained From: Patient, EMS Onset/Duration: Started Hours Ago, Still Present Timing: Lasting Hours Initial Severity: Mild Current Severity: Moderate Pain Intensity: 5 Pain Scale Used: 0-10 Numeric Chest Pain Location: Left Anterior Chest Pain Radiates: No Character: Dull/Aching - aching Aggravating Factor(s): Nothing Alleviating Factor(s): Nothing Associated Signs and Symptoms: Positive: Chest Pain, Headaches, Tingling, Shortness of Breath, Lightheadedness, Diaphoresis, Other: - POS: pale. Negative : Fever, Chills - Allergy/Home Medications Allergies/Adverse Reactions: Allergies Allergy/AdvReac Type Severity Reaction Status Date / Time No Known Allergies Allergy Verified 04/11/18 11:47 PMH/Surg Hx/FS Hx/Imm Hx Endocrine/Hematology History: Denies: Hx Diabetes Cardiovascular History: Reports: Hx Angina, Hx Hypertension, Other Cardiovascular Problems/Disorders - Elevated BP with no Dx of HTN GI History: Reports: Hx Gastroesophageal Reflux Disease, Other GI Disorders - GERD History: Denies: Hx Renal Disease Musculoskeletal History: Reports: Hx Back Problems Psychiatric History: Reports: Hx Depression Infectious Disease History: No Infectious Disease History: Denies: Traveled Outside the [place] in Last 30 Days - Family History Known Family History: Positive: Hypertension - Social History Alcohol Use: Rare Substance Use Type: Reports: None Smoking Status (MU): Never Smoked Tobacco Review of Systems Constitutional: Other - POS: pale Positive: Skin Diaphoresis. Negative: Fever, Chills Positive: Chest Pain Positive: Shortness Of Breath Neurological: Other - POS: lightheadedness Positive: Headache, Paresthesia All Other Systems Reviewed And Are Negative: Yes Physical Exam - Summary Physical Exam Summary: Appearance: Well-appearing, Well-nourished, lying in bed comfortably Skin: Warm, dry, no obvious rash Eyes: sclera anicteric, no conjunctival pallor ENT: mucous membranes moist, pharynx appears normal Neck: Supple, nontender Respiratory: Clear to auscultation, no signs of respiratory distress Cardiovascular: Normal S1, S2. No murmurs. Normal distal pulses in tibial and radial bilaterally. Abdomen: Soft, nontender, normal active bowel sounds present Musculoskeletal: Normal, Strength/ROM Intact Neurological: A&Ox3, awake and alert, mentation is normal, speech is fluent and appropriate Psychiatric: affect is normal, does not appear anxious or depressed Triage Information Reviewed: Yes Vital Signs On Initial Exam: Initial Vitals Temp Pulse Resp BP Pulse Ox 98.0 F 88 20 109/55 98 04/11/18 11:44 04/11/18 11:44 04/11/18 11:44 04/11/18 11:44 04/11/18 11:44 Vital Signs Reviewed: Yes Diagnostics - Vital Signs Vital Signs Temp Pulse Resp BP Pulse Ox 04/11/18 11:44 98.0 F 88 20 109/55 98 - Laboratory Result Diagrams: 04/12/18 09:44 04/12/18 09:44 Lab Statement: Any lab studies that have been ordered have been reviewed, and results considered in the medical decision making process. - Radiology Chest XR Radiology Interpretation Completed By: Radiologist Summary of Radiographic Findings: IMPRESSION: No active cardiopulmonary disease. Dr. Pop has reviewed this report. - CT Neck CT CT Interpretation Completed By: Radiologist Summary of CT Findings: IMPRESSION: There is 1.5 cm loculated fluid collection of the subcutaneous soft tissues along the left posterolateral neck consistent with the history of abscess. There is small amount of gas density centrally consistent with the history of recent incision and drainage. This does not extend deep to the deep subcutaneous fascia. Dr. Pop has reviewed this report. Chest CT CT Interpretation Completed By: Radiologist Summary of CT Findings: IMPRESSION: 1. 1 CM nodule of the right lower lobe not clearly seen on the previous CT examination of August 04, 2006. Recommend consideration of further evaluation with PET/CT. Short-term interval follow-up and/or tissue sampling. 2. Fatty infiltration of liver. 3. Mildly prominent lymph nodes withut lymphadenopathy by size criteria. Dr. Pop has reviewed this report. - EKG 11:48 Cardiac Rate: NL - at 93 bpm EKG Rhythm: Sinus Rhythm Summary of EKG Findings: NSR at 93 BPM, P waves, QRS complex, and T waves are within normal limits, T waves and intervals are normal, no ischemic changes. This is a normal EKG 13:13 Cardiac Rate: NL - at 95 bpm EKG Rhythm: Sinus Rhythm Summary of EKG Findings: No ischemic changes. No change from previous. Re-Evaluation - Re-Evaluation First Eval Re-Evaluation Time: 14:23 Comment: BP decreased to 66/31 Chest Pain Course/Dx - Course Assessment/Plan: Pt is a 47 y/o male who presents via EMS from PCP's office for left sided chest pain since 03:00 today, that worsened at 0600. While at his PCP 's office pt developed a 7/10 left sided chest pain, nonradiating and also was SOB, diaphoretic and pale. Pt reports he felt lightheaded like passing out and was unstable on his feet. Labs remarkable for creatinine of 1.35, glucose of 148, lactic acid of 3.4, first troponin of 0.17, second troponin of 0.09. In the ED course the pt was given nitroglycerin, morphine, heparin vial, heparin drip. Discussed case with Dr. Antonio, stain maker, who came to see the pt in the ED. Pt had an echocardiogram. Blood pressure dropped to 66/31 and pt was given IV fluids and Zosyn. Pt also had an incision and drainage on 04/04/18 for a sebaceous cyst of the left neck, therefore Neck CT and Chest CT were obtained. Discussed pt care with Dr. Alonso, hospitalist, who accepted the pt for admission. - Diagnoses Provider Diagnoses: Chest pain, Hypotension - Provider Notifications Discussed Care Of Patient With: Augusta Antonio Time Discussed With Above Provider: 14:16 Instructed by Provider To: Other - Discussed case with Dr. Antonio, stain maker , who will come see the pt in the ED. [16:10] Discussed pt care with Dr. Alonso , hospitalist, who accepted the pt for admission. Discharge - Sign-Out/Discharge Documenting (check all that apply): Patient Departure - Admit to [facility] Patient Received Moderate/Deep Sedation with Procedure: No - Discharge Plan Condition: Guarded Disposition: ADMITTED TO [facility] - Billing Disposition and Condition Condition: GUARDED Disposition: Admitted to [facility] - Attestation Statements Document Initiated by Ghislainee: Yes Documenting Scribe: Miladys Sheikh Provider For Whom Min is Documenting (Include Credential): Evan Pop MD Scribe Attestation: Miladys Graham, scribed for Evan Pop MD on 04/12/18 at 1248. Scribe Documentation Reviewed: Yes Provider Attestation: The documentation as recorded by the Miladys schaffer accurately reflects the service I personally performed and the decisions made by me, Evan Pop MD Status of Scribe Document: Viewed
--- OUTSIDE RECORDS SUMMARY | 2018-04-11 11:55 | XMS REPORT | Continuity of Care Document ---
:1970 External Reference #:[id number] Author Name CrystalCherie peters Care Team Providers Name Role Phone Cezar Giraldo III, MD Primary Care Physician Unavailable Payers Date Identification Numbers Payment Provider Subscriber Effective: 2014 Policy Number: [id number] [employer] Name: [id number] [address] PayID: [id number] [place] [address] Advance Directives Description No Information Available Problems Date Description Provider Status Onset: 09/10/2014 Ankylosing spondylitis Cezar Giraldo M.D. Active Onset: 09/10/2014 Benign localized hyperplasia of Cezar Giraldo M.D. Active prostate Onset: 09/10/2014 Anxiety state Cezar Giraldo M.D. Active Onset: 09/10/2014 Allergic rhinitis Cezar Giraldo M.D. 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 [employer] Tobacco Use Start: Unknown Never Smoked Cigarettes Smoking Status Reviewed: 04/09/18 Never Smoked Cigarettes ETOH Use Occasionally consumes alcohol Tobacco Use Start: Unknown Patient has never smoked Recreational Drug Use Denies Drug Use Exercise Type/Frequency Exercises sporadically Exercise Type/Frequency Walks sporadically Allergies, Adverse Reactions, Alerts Description No Known Drug Allergies Medications Medication Date Status Form Strength Qnty SIG Indications Ordering Provider Amitriptyline 10/28 Active Tablets 75mg Every Day Unknown Buspirone HCL 10/28 Active Tablets 5mg Every Day Lexapro 10/28 Active Tablets 10mg Every Day Blood Pressure 01/02 Active Misc 1unit large cuff bp R03.0 Cezar Nevarez Monitor s machine for Kristal, Digital/Manual home bp M.D. Inflate monitoring Oxybutynin Active Tablets 10mg once a day Unknown Chloride ER / ER 24HR Tamsulosin HCL Active Capsules 0.4mg once a day Unknown Nystatin Active Powder [id number] bid as needed Unknown /0000 t/GM Amitriptyline Active Tablets 10mg 1 tab po Unknown HCL every night Aleve Active Tablets 220mg as needed Unknown / Testosterone Active Solution 100mg/ml 1 milliliters Unknown Cypionate /0000 intramuscular for 14 days Lexapro Active Tablets 20mg 1 by mouth Unknown /0000 every day Mylanta Active Tablets 20mg 20ml by mouth Unknown /0000 every 4 hours for dyspepsia Bactrim DS Active Tablets 800-160mg 1 by mouth Unknown /0000 twice a day Hydrocodone-Acet Active Tablets 5-325mg 1 or 2 tabs Unknown aminophen /0000 by mouth every 6-8 hours as needed for pain Ditropan 10/28 Hx Tablets 5mg Twice Daily Unknown Repack /2017 - 03/31 Lidocaine 07/07 Hx Patches 5% 30uni apply patch M54.5 Cezar Nevarez /2016 ts up to 12 Kristal, - hours once a M.D. . 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 12/31 Guaifenesin-Code 04/20 Hx Solution 100-10mg/ 118ml take 10 R05 Zsofia ine /2017 5ML milliliters Kilo, - by mouth VEHICLE MODIFICATION TECHNICIAN 06/20 every evening with plenty of water as needed for cough for 7 days as needed Amoxicillin/Clav 04/20 Hx Tablets 875-125mg 14tab take 1 tab by J06.9 Zsofia ulanate /2016 s mouth twice a Kilo, Potassium - day for 7 VEHICLE MODIFICATION TECHNICIAN Oseltamivir 04/13 Hx Capsules 75mg 10cap 1 po bid ChiloAleksey Lopez s Joann Lino M.D.,FACP 04/18 Ciprofloxacin 00 Hx Tablets 500mg Unknown HCL /0000 - 10/[address] Hx C[address] 60mg 30cap once a day Cezar E. /0000 Joann Meyers M.D. 06/20 Ibuprofen Hx Capsules 200mg as needed Unknown /0000 - 07/28 Buspirone HCL 00 Hx Tablets 15mg take one Unknown /0000 tablet by - mouth twice a Ondansetron 0000 Hx Tablets 4mg Domenico, /0000 Dispers Joann Quispe M.D. 03/31 Immunizations CPT Code Status Date Vaccine Reaction Lot # [id number] Given 11/23/2017 Influenza Virus Vaccine, Pt. tolerated well. [id number] Quadrivalent, Split, Preservative Free [id number] Given 12/19/2015 Tdap - Tetanus/Diptheria/Acellular Pertussis Vital Signs Date Vital Result Comment 04/11/2018 11:20am Heart Rate 80 /min O2 % BldC Oximetry 98 % 3L 04/11/2018 11:19am Heart Rate 42 /min BP Systolic 82 mmHg BP Diastolic 60 mmHg O2 % BldC Oximetry 86 % Ra 04/11/2018 11:19am Heart Rate 35 /min O2 % BldC Oximetry 93 % Ra 04/11/2018 11:18am Heart Rate 120 /min BP Systolic Sitting 118 mmHg BP Diastolic Sitting 80 mmHg Respiratory Rate 20 /min Body Temperature 97.0 F 04/09/2018 10:31am Height 72.25 inches 6'0.25" Weight 264.00 lb Heart Rate 84 /min BP Systolic 138 mmHg BP Diastolic 90 mmHg Respiratory Rate 20 /min Body Temperature 97.3 F BMI (Body Mass Index) 35.6 kg/m2 04/06/2018 2:55pm Height 72.25 inches 6'0.25" Weight 264.00 lb Heart Rate 63 /min BP Systolic Sitting 126 mmHg BP Diastolic Sitting 79 mmHg O2 % BldC Oximetry 96 % BMI (Body Mass Index) 35.6 kg/m2 04/02/2018 10:00am Height 72.25 inches 6'0.25" Weight 269.12 lb Heart Rate 92 /min BP Systolic Sitting 160 mmHg large adult cuff left arm BP Diastolic Sitting 110 mmHg large adult cuff left arm Respiratory Rate 20 /min Body Temperature 99.9 F O2 % BldC Oximetry 97 % at rest on room air BMI (Body Mass Index) 36.2 kg/m2 11/23/2017 4:12pm Height 72.25 inches 6'0.25" Weight 259.00 lb Heart Rate 75 /min BP Systolic Sitting 142 mmHg BP Diastolic Sitting 90 mmHg O2 % BldC Oximetry 97 % BMI (Body Mass Index) 34.9 kg/m2 03/06/2017 1:11pm Height 72.25 inches 6'0.25" Weight 272.00 lb Heart Rate 70 /min BP Systolic Sitting 144 mmHg BP Diastolic Sitting 98 mmHg Body Temperature 96.8 F O2 % BldC Oximetry 97 % BMI (Body Mass Index) 36.6 kg/m2 02/01/2017 3:49pm Weight 265.00 lb Heart Rate 85 /min BP Systolic Sitting 145 mmHg BP Diastolic Sitting 105 mmHg Body Temperature 97.1 F O2 % BldC Oximetry 96 % 01/04/2017 3:21pm Height 72.25 inches 6'0.25" Weight 274.00 lb Heart Rate 92 /min BP Systolic Sitting 144 mmHg BP Diastolic Sitting 104 mmHg Body Temperature 98.3 F O2 % BldC Oximetry 97 % BMI (Body Mass Index) 36.9 kg/m2 01/03/2017 1:59pm Height 73 inches 6'1" Weight 272.25 lb no shoes Heart Rate 90 /min BP Systolic Sitting 146 mmHg Lue large cuff BP Diastolic Sitting 90 mmHg Lue large cuff Respiratory Rate 18 /min O2 % BldC Oximetry 98 % On Ra BMI (Body Mass Index) 35.9 kg/m2 01/02/2017 1:52pm Height 73 inches 6'1" Weight 275.00 lb Heart Rate 85 /min BP Systolic Sitting 148 mmHg BP Diastolic Sitting 94 mmHg Body Temperature 97.3 F O2 % BldC Oximetry 97 % BMI (Body Mass Index) 36.3 kg/m2 08/17/2016 8:21am Height 73 inches 6'1" Weight 278.00 lb Heart Rate 90 /min BP Systolic Sitting 142 mmHg BP Diastolic Sitting 94 mmHg Respiratory Rate 20 /min O2 % BldC Oximetry 96 % Room Air BMI (Body Mass Index) 36.7 kg/m2 Neck Circumference in inches 18 07/29/2016 10:57am Height 73 inches 6'1" Weight 276.00 lb Heart Rate 92 /min BP Systolic 130 mmHg BP Diastolic 90 mmHg Body Temperature 98.1 F O2 % BldC Oximetry 97 % BMI (Body Mass Index) 36.4 kg/m2 07/07/2016 4:24pm Weight 268.00 lb Heart Rate 84 /min BP Systolic Sitting 138 mmHg BP Diastolic Sitting 80 mmHg Respiratory Rate 15 /min Body Temperature 98.0 F O2 % BldC Oximetry 98 % 06/21/2016 4:07pm Weight 270.25 lb Heart Rate 86 /min BP Systolic 140 mmHg BP Diastolic 90 mmHg Body Temperature 98.4 F O2 % BldC Oximetry 96 % 04/20/2016 10:57am Weight 256.25 lb Heart Rate 111 /min BP Systolic Sitting 162 mmHg BP Diastolic Sitting 112 mmHg Body Temperature 97.5 F O2 % BldC Oximetry 98 % 04/13/2016 10:57am Weight 262.00 lb Heart Rate 76 /min BP Systolic Sitting 128 mmHg BP Diastolic Sitting 82 mmHg Respiratory Rate 15 /min Body Temperature 97.6 F O2 % BldC Oximetry 98 % 04/04/2016 2:07pm Weight 264.00 lb Heart Rate 88 /min BP Systolic Sitting 148 mmHg BP Diastolic Sitting 90 mmHg Respiratory Rate 15 /min Body Temperature 98.0 F O2 % BldC Oximetry 98 % 02/24/2016 4:33pm Weight 267.00 lb Heart Rate 89 /min BP Systolic 140 mmHg BP Diastolic 100 mmHg Body Temperature 97.0 F O2 % BldC Oximetry 98 % 10/29/2015 1:12pm Weight 266.00 lb Heart Rate 78 /min BP Systolic Sitting 156 mmHg BP Diastolic Sitting 80 mmHg Body Temperature 97.8 F O2 % BldC Oximetry 98 % 07/29/2015 4:55pm Weight 256.00 lb Heart Rate 90 /min BP Systolic Sitting 130 mmHg BP Diastolic Sitting 84 mmHg Body Temperature 97.3 F O2 % BldC Oximetry 99 % 05/29/2015 4:33pm Weight 258.00 lb Heart Rate 105 /min BP Systolic Sitting 154 mmHg BP Diastolic Sitting 88 mmHg Body Temperature 96.2 F 04/08/2015 11:43am Weight 265.00 lb Heart Rate 91 /min BP Systolic Sitting 148 mmHg BP Diastolic Sitting 88 mmHg Body Temperature 97.3 F O2 % BldC Oximetry 98 % 10/22/2014 1:12pm Height 73 inches 6'1" Weight 250.50 lb Heart Rate 89 /min BP Systolic Sitting 130 mmHg BP Diastolic Sitting 90 mmHg Body Temperature 96.4 F Pain Level 7 O2 % BldC Oximetry 98 % BMI (Body Mass Index) 33.0 kg/m2 09/10/2014 10:49am Height 73 inches 6'1" Weight 254.50 lb Heart Rate 73 /min BP Systolic Sitting 132 mmHg 144/106 initially BP Diastolic Sitting 94 mmHg 144/106 initially Body Temperature 97.8 F O2 % BldC Oximetry 98 % BMI (Body Mass Index) 33.6 kg/m2 Results Test Date Facility Test Result H/L Range Note Wound 04/04/2018 [facility] Wound/Misc SEE RESULT 1 Culture/Sensi [address] [place] [address] Stain [phone] Laboratory test 04/04/2018 [facility] MRSA/S. aureus SEE RESULT [address] [place] [address] [phone] Laboratory test 10/28/2017 [facility] C Difficile PCR SEE RESULT [address] [place] [address] [phone] Laboratory test 10/28/2017 [facility] Fecal SEE RESULT [address] [place] [address] (Stool WBC) [phone] CBC Auto Diff 10/28/2017 [facility] White Blood 9.1 10^3/uL N 3.5-10.[address] [place] [address] [phone] Red Blood Count 5.37 10^6/uL N 4.00-5.40 Hemoglobin 16.4 g/dL N 14.0-18.0 Hematocrit 48 % N 42-52 Mean Corpuscular Volume 89 fL N 80-94 Mean Corpuscular Hemoglobin 31 pg N 27-31 Mean Corpuscular HGB Conc 34 g/dL N 31-36 Red Cell Distribution Width 13 % N 10.5-15 Platelet Count 278 10^3/uL N 150-450 Mean Platelet Volume 8.1 um3 N 7.4-10.4 Abs Neutrophils 7.0 10^3/uL N 1.5-7.7 Abs Lymphocytes 1.6 10^3/uL N 1.0-4.8 Abs Monocytes 0.5 10^3/uL N 0-0.8 Abs Eosinophils 0 10^3/uL N 0-0.6 Abs Basophils 0 10^3/uL N 0-0.2 Abs Nucleated RBC 0 10^3/uL Granulocyte % 76.4 % N 38-83 Lymphocyte % 17.4 % Low 25-47 Monocyte % 5.3 % N 0-7 Eosinophil % 0.5 % N 0-6 Basophil % 0.4 % N 0-2 Nucleated Red Blood Cells % 0.1 Inr/Protime 10/28/2017 [facility] Inr 0.98 N 0.77-1.02 [address] [place] [address] [phone] Laboratory test 10/28/2017 [facility] Partial 30.9 seconds N 26.0-36.3 finding 101 [facility] [place] [address] PTT [phone] Lactic Acid 1.2 mmol/L N 0.5-2.0 5 Urinalysis Profile 10/28/2017 [facility] Urine Color Yellow [address] [place] [address] [phone] Urine Appearance Clear Urine Specific [place] 1.005 Low 1.010-1.030 Urine pH 6.0 N 5-9 Urine Urobilinogen Negative Negative Urine Ketones Trace Abnormal Negative Urine Protein Negative Negative Urine Leukocytes Negative Negative Urine Blood Negative Negative Urine Nitrite Negative Negative Urine Bilirubin Negative Negative Urine Glucose Negative Negative Comp Metabolic Panel 10/28/2017 [facility] Sodium 138 mmol/L N 135-145 [address] [place] [address] [phone] Potassium 4.2 mmol/L N 3.5-5.0 Chloride 107 mmol/L N 101-111 Co2 Carbon Dioxide 24 mmol/L N 22-32 Anion Gap 7 mmol/L N 2-11 Glucose 77 mg/dL N 70-100 Blood Urea Nitrogen 13 mg/dL N 6-24 Creatinine 1.07 mg/dL N 0.67-1.17 BUN/Creatinine Ratio 12.1 N 8-20 Calcium 9.4 mg/dL N 8.6-10.3 Total Protein 7.1 g/dL N 6.4-8.9 Albumin 4.3 g/dL N 3.2-5.2 Globulin 2.8 g/dL N 2-4 Albumin/Globulin Ratio 1.5 N 1-3 Total Bilirubin 0.70 mg/dL N 0.2-1.0 Alkaline Phosphatase 49 U/L N 34-104 Alt 16 U/L N 7-52 Ast 15 U/L N 13-39 Egfr Non- 74.7 >60 Egfr 90.4 >60 6 Laboratory test finding 10/28/2017 [facility] Lipase 12 U/L N 11.0-82.0 [address] [place] [address] [phone] Creatine Kinase(CK) 66 U/L N 10-223 C Reactive Protein 4.75 mg/L N <8.01 Troponin-I (TnI) 0.00 ng/mL <0.04 CKMB 10/28/2017 [facility] CKMB ng/mL 2.5 ng/mL N 0.6-6.[address] [place], [place] [address] [phone] Laboratory test 10/28/2017 [facility] TSH 1.28 N 0.34-5.60 finding 101 (Thyroid mcIU/[place] [address] Stim Horm) [phone] Magnesium 2.2 mg/dL N 1.9-2.7 Laboratory test 03/03/2017 [facility] Lipase 10 U/L Low 11.0- 82.[address] [place] [address] [phone] C Reactive Protein 8.08 mg/L High < 5.00 7 Comp Metabolic Panel 03/03/2017 [facility] Sodium 138 mmol/L N 133-[address] [place] [address] [phone] Potassium 3.9 mmol/L N 3.5-5.0 Chloride 104 mmol/L N 101-111 Co2 Carbon Dioxide 25 mmol/L N 22-32 Anion Gap 9 mmol/L N 2-11 Glucose 103 mg/dL High 70-100 Blood Urea Nitrogen 12 mg/dL N 6-24 Creatinine 1.01 mg/dL N 0.67-1.17 BUN/Creatinine Ratio 11.9 N 8-20 Calcium 9.2 mg/dL N 8.6-10.3 Total Protein 7.0 g/dL N 6.4-8.9 Albumin 4.1 g/dL N 3.2-5.2 Globulin 2.9 g/dL N 2-4 Albumin/Globulin Ratio 1.4 N 1-3 Total Bilirubin 0.80 mg/dL N 0.2-1.0 Alkaline Phosphatase 44 U/L N 34-104 Alt 27 U/L N 7-52 Ast 22 U/L N 13-39 Egfr Non- 80.2 >60 Egfr 103.2 >60 8 Laboratory test 03/03/2017 [facility] Lactic Acid 0.8 mmol/L N 0.5-2.0 [address] [place] [address] [phone] CBC Auto Diff 03/03/2017 [facility] White Blood 6.9 10^3/uL N 3.5-10.[address] [place] [address] [phone] Red Blood Count 4.81 10^6/uL N 4.0-5.4 Hemoglobin 15.2 g/dL N 14.0-18.0 Hematocrit 43 % N 42-52 Mean Corpuscular Volume 90 fL N 80-94 Mean Corpuscular Hemoglobin 32 pg High 27-31 Mean Corpuscular HGB Conc 35 g/dL N 31-36 Red Cell Distribution Width 13 % N 10.5-15 Platelet Count 261 10^3/uL N 150-450 Mean Platelet Volume 8 um3 N 7.4-10.4 Abs Neutrophils 4.8 10^3/uL N 1.5-7.7 Abs Lymphocytes 1.7 10^3/uL N 1.0-4.8 Abs Monocytes 0.3 10^3/uL N 0-0.8 Abs Eosinophils 0.1 10^3/uL N 0-0.6 Abs Basophils 0 10^3/uL N 0-0.2 Abs Nucleated RBC 0 10^3/uL Granulocyte % 69.4 % N 38-83 Lymphocyte % 23.9 % Low 25-47 Monocyte % 4.7 % N 1-9 Eosinophil % 1.3 % N 0-6 Basophil % 0.7 % N 0-2 Nucleated Red Blood Cells % 0.3 Urinalysis Profile 03/03/2017 [facility] Urine Color Yellow [address] [place] [address] [phone] Urine Appearance Clear Urine Specific [place] 1.008 Low 1.010-1.030 Urine pH 7.0 N 5-9 Urine Urobilinogen Negative Negative Urine Ketones Negative Negative Urine Protein Negative Negative Urine Leukocytes Negative Negative Urine Blood Negative Negative Urine Nitrite Negative Negative Urine Bilirubin Negative Negative Urine Glucose Negative Negative Urine White Blood Cell Absent Absent Urine Red Blood Cell Absent Absent Urine Bacteria Absent Absent Comp Metabolic Panel 01/26/2017 [facility] Sodium 138 mmol/L N 133-[address] [place] [address] [phone] Potassium 4.3 mmol/L N 3.5-5.0 Chloride 103 mmol/L N 101-111 Co2 Carbon Dioxide 29 mmol/L N 22-32 Anion Gap 6 mmol/L N 2-11 Glucose 82 mg/dL N 70-100 Blood Urea Nitrogen 8 mg/dL N 6-24 Creatinine 0.87 mg/dL N 0.67-1.17 BUN/Creatinine Ratio 9.2 N 8-20 Calcium 9.1 mg/dL N 8.6-10.3 Total Protein 6.9 g/dL N 6.4-8.9 Albumin 4.1 g/dL N 3.2-5.2 Globulin 2.8 g/dL N 2-4 Albumin/Globulin Ratio 1.5 N 1-3 Total Bilirubin 0.80 mg/dL N 0.2-1.0 Alkaline Phosphatase 54 U/L N 34-104 Alt 26 U/L N 7-52 Ast 24 U/L N 13-39 Egfr Non- 95.3 >60 Egfr 122.6 >60 10 Lipid Profile 01/26/2017 [facility] Triglycerides 311 mg/dL 11 (Trig/Chol/HDL) [address] [place] [address] [phone] Cholesterol 189 mg/dL 12 HDL Cholesterol 34.0 mg/dL 13 LDL Cholesterol 93 mg/dL 14 Rapid 04/13/2016 [facility] Influenza A POSITIVE Abnormal Negative 15 Influenza A & [address] [place] [address] [phone] Influenza B Molecular NEGATIVE N Negative Laboratory test 04/13/2016 [facility] Influenza A & B SEE RESULT [address] [place] [address] [phone] Testosterone Free 11/11/2015 [facility] Free Testosterone 7.01 ng/dL N 4.46- 17 & Total [address] ng/dl 17.1 [place] [address] [phone] Testosterone 219 ng/dL Abnormal 240-950 18 CBC Auto Diff 04/08/2015 [facility] White Blood 7.4 10^3/uL N 3.5-10.[address] [place] [address] [phone] Red Blood Count 4.76 10^6/uL N 4.0-5.4 Hemoglobin 15.0 g/dL N 14.0-18.0 Hematocrit 44 % N 42-52 Mean Corpuscular Volume 92 fL N 80-94 Mean Corpuscular Hemoglobin 32 pg High 27-31 Mean Corpuscular HGB Conc 34 g/dL N 31-36 Red Cell Distribution Width 13 % N 10.5-15 Platelet Count 263 10^3/uL N 150-450 Mean Platelet Volume 9 um3 N 7.4-10.4 Abs Neutrophils 4.7 10^3/uL N 1.5-7.7 Abs Lymphocytes 1.9 10^3/uL N 1.0-4.8 Abs Monocytes 0.5 10^3/uL N 0-0.8 Abs Eosinophils 0.1 10^3/uL N 0-0.6 Abs Basophils 0 10^3/uL N 0-0.2 Abs Nucleated RBC 0.01 10^3/uL N Granulocyte % 64.2 % N 38-83 Lymphocyte % 26.2 % N 25-47 Monocyte % 7.0 % N 1-9 Eosinophil % 2.0 % N 0-6 Basophil % 0.6 % N 0-2 Nucleated Red Blood Cells % 0.1 N Laboratory test 04/08/2015 [facility] C Reactive 5.18 mg/L High < 5.00 19 finding 101 [facility] [place] [address] [phone] Erythrocyte Sed Rate 15 mm/Hr High 0-14 Lyme Disease Serology Negative N Negative 20 TSH (Thyroid Stim Horm) 2.45 ?IU/mL N 0.34-5.60 Basic Metabolic Panel 10/17/2014 [facility] Sodium 137 mmol/L N 133-145 [address] [place] [address] [phone] Potassium 4.1 mmol/L N 3.5-5.0 Chloride 104 mmol/L N 101-111 Co2 Carbon Dioxide 25 mmol/L N 22-32 Anion Gap 8 mmol/L N 2-11 Glucose 88 mg/dL N 70-100 Blood Urea Nitrogen 10 mg/dL N 6-24 Creatinine 0.92 mg/dL N 0.67-1.17 BUN/Creatinine Ratio 10.9 N 8-20 Calcium 9.4 mg/dL N 8.6-10.3 Egfr Non- 90.2 N >60 Egfr 116.0 N >60 21 Lipid Profile 10/17/2014 [facility] Triglycerides 207 mg/dL N 22 (Trig/Chol/HDL) [address] [place] [address] [phone] Cholesterol 207 mg/dL N 23 HDL Cholesterol 35.1 mg/dL N 24 LDL Cholesterol 131 mg/dL N 25 1 SEE RESULT BELOW Name: YISEL JOVEL : [address]: Tobin Young MD Acct: [id number] Unit: [id number] AGE: 47 Location: ED Re04/04/18 SEX: M Status: REG ER SPEC: [id number] TERE: 04/04/[address]: Kaushal Graham NP REQ: [id number] RECD: 04/04/18 STATUS: RES [facility] DR: Momo Giraldo III, MD _ SOURCE: NECK SPDESC: ORDERED: Culture Stain Procedure Result Reported Site Wound/Misc Gram Stain Final 04/05/18 07 ML 4+ Neutrophils 1+ Epithelial Cells 4+ Gram Positive Cocci 1+ Gram Positive Bacilli Wound/Misc Culture PENDING * ML - Main Lab . END OF REPORT DEPARTMENT OF PATHOLOGY, [address] [place] [address] Arnulfo Galindo M.D. Director [facility] # [id number] 2 SEE RESULT BELOW Name: YISEL JOVEL : [address]: Tobin Young MD Acct: [id number] Unit: [id number] AGE: 47 Location: ED Re04/04/18 SEX: M Status: REG ER SPEC: [id number] TERE: 04/04/18 [facility] [address]: Kaushal Graham NP REQ: [id number] RECD: 04/04/18 STATUS: KARINE PAT DR: Momo Giraldo III, MD _ SOURCE: NECK SPDESC: ORDERED: MRSA/SA SSTI, Culture Stain Procedure Result Reported Site MRSA/S. aureus SSTI PCR Final 04/05/18918 ML Organism 1 MRSA NEGATIVE Organism 2 S.AUREUS NEGATIVE Wound/Misc Gram Stain Final 04/05/18743 ML 4+ Neutrophils 1+ Epithelial Cells 4+ Gram Positive Cocci 1+ Gram Positive Bacilli Wound/Misc Culture Final 04/08/18- 857 ML Organism 1 NORMAL BARBER Quantity 1+ Mixed anaerobes; unable to isolate for further identification. * ML - Main Lab . END OF REPORT DEPARTMENT OF PATHOLOGY, [address] [place] [address] Arnulfo Galindo M.D. Director [facility] # [id number] 3 SEE RESULT BELOW Name: YISEL JOVEL : [address]: Farhat Garduno MD Acct: [id number] Unit: [id number] AGE: 47 Location: ED Re10/28/17 SEX: M Status: DEP ER SPEC: [id number] TERE: 10/28/[address]: Farhat Garduno MD REQ: [id number] RECD: 10/28/17 STATUS: KARINE PAT DR: Cezar Giraldo III, MD _ SOURCE[facility] ORDERED: C. diff PCR, Stool Culture, Occult Bl, Scn, O P: Giar/Crypt Procedure Result Reported Site Stool Culture Final 10/30/17- 1231 ML Result No enteric pathogens isolated Testing for Salmonella, Shigella, Aeromonas, Plesiomonas, Yersinia and Campylobacter are included in a Stool Culture. Vibrio spp not routinely tested for in a stool culture. If testing is desired, please request specifically when placing test order. Sensitivities not routinely performed on stool isolates, as antibiotics may prolong the carriage rate of bacteria. Please contact the microbiology lab if sensitivities are required. Stool Specimen Description Final 10/28/17- 2052 ML Stool Color Light Brown Stool Form Nonformed Stool Consistency Liquid Shiga Toxin 1 2 Final 10/30/17- 1614 ML Organism 1 Negative Shiga Toxin 1 2 Immunochromatographic Assay C. difficile PCR Final 10/28/17- 2136 ML Organism 1 027 Presumptive NEGATIVE Organism 2 Toxigenic C.diff NEGATIVE Stool Occult Blood (1) Final 10/28/17- 2100 ML Stool Occult Blood Negative CONTINUED ON NEXT PAGE DEPARTMENT OF PATHOLOGY, [address] [place] [address] Arnulfo Galindo M.D. Director [facility] # [id number] Patient: YISEL JOVEL [id number] (Continued) Specimen: [id number] Collected: 10/28/17 Received: 10/28/17 (Continued) Procedure Result Reported Site Stool Occult Blood (1) Final (continued) 10/28/17- 2100 Collection Date (1) 10/28/17 O P: Giardia/Cryptospor Screen Final 10/30/17- 1107 ML Organism 1 Neg Cryptosporidium/Giardia Giardia and cryptosporidium antigen testing performed by enzyme immunoassay. If patient is immunocompromised or has traveled to or is from a developing country, a full ova and parasite exam with microscopic (OPMIC) is recommended. All samples will be held one month in case full ova and parasite testing is requested. Contact the Microbiology Department at [phone]. TEST LIMITATIONS: As with all diagnostic procedures, the results obtained should be used in conjunction with other clinical information available the physician, including confirmation by another method. Negative results can occur in samples containing antigen below lower limits of detection of the assay. One negative specimen does not rule out the possibility of a parasitic infection. To improve detection it is recommended that three specimens be collected on separate days over a period of not more than seven days. The use of colonic washes, aspirates or other diluted sample types has not been established and could affect the performance of the assay. Stool samples contaminated with an oily or particulate base (eg. Barium, mineral oil etc.) could interfere with the test and are not recommended. * ML - Main Lab . END OF REPORT DEPARTMENT OF PATHOLOGY, [address] [place] [address] Arnulfo Galindo M.D. Director [facility] # [id number] 4 SEE RESULT BELOW Name: YISEL JOVEL : [address]: Farhat Garduno MD Acct: [id number] Unit: [id number] AGE: 47 Location: ED Re10/28/17 SEX: M Status: REG ER SPEC: [id number] TERE: 10/28/17 [facility] [address]: Farhat Garduno MD REQ: [id number] RECD: 10/28/17 STATUS: KARINE PAT DR: Cezar Giraldo III, MD _ SOURCE: STOOL SPDESC: ORDERED: Fecal Lactoferr Procedure Result Reported Site Stool Specimen Description Final 10/28/17- 2127 ML Stool Color Light Brown Stool Form Nonformed Stool Consistency Liquid Fecal Lactoferrin (Stool WBC) Final 09/082127 ML Fecal Lactoferrin Negative by Immunoassay TEST LIMITATIONS: Assay detects elevated levels of lactoferrin released from fecal leukocytes as a marker of intestinal inflammation. The test may not be appropriate in immunocompromised persons. Fecal samples from breast fed infants should not be used with this assay. * ML - Main Lab . END OF REPORT DEPARTMENT OF PATHOLOGY, [address] [place] [address] Arnulfo Galindo M.D. Director [facility] # [id number] 5 [facility] Severe Sepsis and Septic Shock Management Bundle Measure requires all lactic acids initially measuring >2.0 mmol/L be repeated. 6 Because ethnic data is not always readily [...] 15-29 5 Kidney failure <15 (or dialysis) 7 Acute inflammation: >10.00 8 Because ethnic data is not always readily [...] 15-29 5 Kidney failure <15 (or dialysis) 9 [facility] Severe Sepsis and Septic Shock Management Bundle Measure requires all lactic acids initially measuring >2.0 mmol/L be repeated. 10 Because ethnic data is not always readily [...] 15-29 5 Kidney failure <15 (or dialysis) 11 Desirable: <150 Borderline High: 150-199 High: 200-499 Very High: >500 12 Desirable: <200 Borderline High: 200-239 High: >239 13 Low: <40 Desirable: 40-60 High: >60 14 Desirable: <100 Near Optimal: 100-129 Borderline High: 130-159 High: 160-189 Very High: >189 15 Criminal Justice Department Chair: [id number] VASQUEZ 16 SEE RESULT BELOW Name: YISEL JOVEL : [address]: Anibal Roberto MD Acct: [id number] Unit: [id number] AGE: 45 Location: [facility] Re04/13/16 SEX: M Status: REG REF SPEC: [id number] TERE: 04/13/16-[address]: Chilo Roberto MD REQ: [id number] RECD: 04/13/16 STATUS: COMP _ SOURCE: [facility]: ORDERED: Flu A B Request COMMENTS: [id number] Procedure Result Reported Site Rapid Influenza A B Request Final 04/13/16- 2030 ML Specimen received for Influenza A/B Molecular testing * ML - MAIN LAB ([facility]) . END OF REPORT * ML=Testing performed at Main Lab DEPARTMENT OF PATHOLOGY, [address] [place] [address] Arnulfo Galindo M.D. Director [facility] # [id number] 17 ADDITIONAL INFORMATION Testing performed by [facility]. This test was developed and its performance characteristics determined by [facility] in a manner consistent with CLIA requirements. This test has not been cleared or approved by the U.S. Food and Drug Administration. 18 ADDITIONAL INFORMATION Testing performed by Liquid Chromatography-Tandem Mass Spectrometry (LC-MS/MS). This test was developed and its performance characteristics determined by [facility] in a manner consistent with CLIA requirements. This test has not been cleared or approved by the U.S. Food and Drug Administration. Test Performed by: [place] [address] Construction Laborer: Farhat Yeung II, M.D., Ph.D. 19 Acute inflammation: >10.00 20 Serologic response to B. burgdorferi infection is not detected, but cannot rule out early infection during which low or undetectable antibody levels to B. burgdorferi may be present. If clinically indicated, a new serum specimen should be submitted in 7-14 days. Test Performed by: [facility] [place] [address] Construction Laborer: Farhat Yeung II, M.D., Ph.D. 21 Because ethnic data is not always readily [...] 15-29 5 Kidney failure <15 (or dialysis) 22 Desirable <150 Borderline high 150-199 High 200-499 Very High >500 23 Desirable <200 Borderline high 200-239 High >239 24 Low <40 Desirable: 40-60 High: >60 25 Desirable: <100 mg/dL Near Optimal: 100-129 mg/dL Borderline High: 130-159 mg/dL High: 160-189 mg/dL Very High: >189 mg/dL Procedures Date Code Description Status 04/09/2018 31937 Debridement Skin Infected To 10% Completed 12/12/2016 40401 Polysomnography Sleep Staging 4+ Parameters W/Cpap Completed Encounters Type Date Location Provider Dx Diagnosis Office Visit 04/02/2018 [facility] Internal Laurie Lin MD L02.11 Cutaneous abscess 10:00a Medicine - [place] of neck Rd I10 Essential (primary) hypertension Office Visit 11/23/2017 4:00p [facility] Internal Cezar Painter Infectious Magda Giraldo M.D. gastroenteritis and [place] colitis, unspecified Z23 Encounter for immunization R03.0 Elevated blood-pressure reading, w/o diagnosis of htn Office Visit 03/06/2017 1:00p [facility] Internal Cezar Giraldo M.D. gastroenteritis and [place] colitis, unspecified Office Visit 02/01/2017 3:20p [facility] Cezar Nevarez R03.0 Elevated Magda Giraldo M.D. blood-pressure [place] reading, w/o diagnosis of htn J06.9 Acute upper respiratory infection, unspecified E78.2 Mixed hyperlipidemia Office Visit 01/04/2017 2:40p [facility] Nevarez R03.0 Elevated Magda Giraldo M.D. blood-pressure [place] reading, w/o diagnosis of htn E78.2 Mixed hyperlipidemia G47.33 Obstructive sleep apnea (adult) (pediatric) M45.9 Ankylosing spondylitis of unspecified sites in spine N40.0 Benign prostatic hyperplasia without lower urinry tract symp F32.9 Major depressive disorder, single episode, unspecified Office Visit 01/03/2017 Pulmonology And Radha G47.33 Obstructive sleep 1:45p [facility], RN, apnea (adult) [facility] VEHICLE MODIFICATION TECHNICIAN-BC (pediatric) G47.14 Hypersomnia due to medical condition Office Visit 01/02/2017 [facility] Internal Cezar Nevarez R03.0 Elevated 2:00p Magda Giraldo M.D. blood-pressure [place] reading, w/o diagnosis of htn Office Visit 08/17/2016 [facility] Radha R09.02 Hypoxemia 8:00a [facility] Joanne [facility] R40.0 Somnolence R12 Heartburn R45.1 Restlessness and agitation E66.09 Other obesity due to excess calories Z68.36 Body mass index (BMI) 36.0-36.9, adult Office Visit 07/29/2016 10:40a [facility] Internal Cezar Musa4.5 Low back pain Magda Giraldo M.D. [place] Office Visit 07/07/2016 4:00p [facility] Internal Cezar Nevarez M54.5 Low back pain Magda Giraldo M.D. [place] Office Visit 06/21/2016 4:00p [facility] Internal Cezar Musa4.5 Low back pain Magda Giraldo M.D. [place] Office Visit 04/20/2016 11:00a [facility] Internal Armando Boateng, J06.9 Acute upper Medicine - [place] VEHICLE MODIFICATION TECHNICIAN respiratory Rd infection, unspecified R05 Cough J09.x2 Flu due to ident novel influenza A virus w oth resp manifest Office Visit 04/13/2016 11:10a [facility] Internal Chilo Castrejon J11.1 Flu due to Medicine - Tbtho Roberto M.D.,FACP unidentified Rd influenza virus w oth resp manifest Office Visit 04/04/2016 2:00p [facility] Internal Cezar Nevarez R03.0 Elevated Magda Giraldo M.D. blood-pressure [place] reading, w/o diagnosis of htn Office Visit 02/24/2016 4:20p [facility] Internal Cezar Nevarez R03.0 Elevated Magda Giraldo M.D. blood-pressure [place] reading, w/o diagnosis of htn J06.9 Acute upper respiratory infection, unspecified Office Visit 10/29/2015 1:00p [facility] Internal Cezar Nevarez E29.1 Testicular Magda Giraldo M.D. hypofunction [place] F32.9 Major depressive disorder, single episode, unspecified Office Visit 07/29/2015 4:20p [facility] Internal Cezar Nevarez B35.1 Tinea unguium Ambreen King L30.9 Dermatitis, unspecified Office Visit 05/29/2015 4:20p [facility] Internal Tracey Leslie, J01.90 Acute sinusitis, Magda David M.D. unspecified Andrzej Office Visit 04/08/2015 11:40a [facility] Internal Cezar Nevarez R51 Headache Ambreen King F41.9 Anxiety disorder, unspecified Office Visit 10/22/2014 1:00p [facility] Internal Cezar Nevarez 724.2 Lumbago Ambreen King Office Visit 09/10/2014 10:40a [facility] Internal Cezar Nevarez 720.0 Spondylitis Magda Giraldo M.D. Ankylosing Andrzej 600.20 Benign Localized Hyperplasia Prostate W/O Urinary Obstruct 300.00 Anxiety State Unspec 477.9 Rhinitis Allergic Cause Unspec V77.1 Screening Diabetes Mellitus V77.91 Screening For Lipoid Disorders Plan of Treatment Future Appointment(s):06/07/2018 1:00 pm - Tesfaye Santana MD, FACS at [facility]04/11/2018 - Robbin Crystal M.D.L72.3 Sebaceous cystL02.11 Cutaneous abscess of neckFollow up:As needed
--- OUTSIDE RECORDS SUMMARY | 2018-04-11 11:55 | XMS REPORT | Continuity of Care Document ---
:1970 External Reference #:[id number] Author Name Lovely Bui Care Team Providers Name Role Phone Cezar Giraldo III, MD Primary Care Physician Unavailable Payers Date Identification Numbers Payment Provider Subscriber Effective: 2014 Policy Number: [id number] [employer] Name: [id number] [address] PayID: [id number] [place] [address] Advance Directives Description No Information Available Problems [...] apnea Radha Mar DNP, RN, Active syndrome ACCESS DATABASE DEVELOPER-BC Onset: 01/03/2017 Hypoxemia Radha aMr DNP, RN, Active ACCESS DATABASE DEVELOPER-BC Onset: 01/03/2017 Hypersomnia Radha Mar DNP, RN, Active ACCESS DATABASE DEVELOPER-BC Onset: 01/04/2017 Benign prostatic hypertrophy Cezar Giraldo M.D. 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 [employer] Tobacco Use Start: Unknown Never Smoked Cigarettes [...] a day Unknown / Nystatin Active Powder [id number] bid as needed Unknown /0000 t/GM Amitriptyline [...] Kb HCL s three times a Vaishali, REORDERING CLERK - day as needed 12/31 spasm 2017 Guaifenesin-Code 04/20 Hx Solution 100-10mg/ 118ml take 10 R05 Zsofia ine /2016 5ML milliliters Kilo, - by mouth ACCESS DATABASE DEVELOPER 06/20 every evening with plenty of water as needed for cough for 7 days as needed Amoxicillin/Clav 04/20 Hx Tablets 875-125mg 14tab take 1 tab by J06.9 Zsofia ulanate /2016 s mouth twice a Kilo, Potassium - day for 7 ACCESS DATABASE DEVELOPER Oseltamivir 04/13 Hx Capsules 75mg 10cap 1 po bid Chilo Lopez s Joann Lino M.D.,FACP 04/18 Ciprofloxacin Hx Tablets 500mg Unknown HCL /0000 - 10/[address] H[address] 60mg 30cap once a day Cezar Nevarez /0000 Joann Meyers M.D. 06/20 Ibuprofen Hx Capsules 200mg as needed Unknown /0000 - 07/28 Buspirone HCL 00 Hx Tablets 15mg take one Unknown /0000 tablet by - mouth twice a Ondansetron Hx Tablets 4mg Domenico, /0000 Joann Allen M.D. 03/31 Immunizations CPT Code Status Date Vaccine Reaction Lot # [id number] Given 11/23/2017 Influenza Virus Vaccine, Pt. tolerated well. [id number] Quadrivalent, Split, Preservative Free [id number] Given 12/19/2015 Tdap - Tetanus/Diptheria/Acellular Pertussis Vital Signs Date Vital Result Comment 04/09/2018 10:31am Height 72.25 inches 6'0.25" Weight [...] Test Result H/L Range Note Wound 04/04/2018 [facility] Wound/Misc SEE RESULT 1 Culture/Sensi [address] [address] Stain [phone] Laboratory test 04/04/2018 [facility] MRSA/S. aureus SEE RESULT [address] [address] [phone] Laboratory test 10/28/2017 [facility] C Difficile PCR SEE RESULT [address] [place] [address] [phone] Laboratory test 10/28/2017 [facility] Fecal SEE RESULT [address] [address] (Stool WBC) [phone] CBC Auto Diff 10/28/2017 [facility] White Blood 9.1 10^3/uL N 3.5-10.[address] [place] [address] [phone] Red Blood Count 5.37 10^6/uL N 4.00-5.40 [...] Red Blood Cells % 0.1 Inr/Protime 10/28/2017 [facility] Inr 0.98 N 0.77-1.[address] [place] [address] [phone] Laboratory test 10/28/2017 [facility] Partial 30.9 seconds N 26.0-36.[address] [place] [address] [place] [address] PTT [phone] Lactic Acid 1.2 mmol/L N 0.5-2.0 5 Urinalysis Profile 10/28/2017 [facility] Urine Color Yellow [address] [place] [address] [phone] Urine Appearance Clear Urine Specific [place] 1.005 Low 1.010-1.030 Urine pH 6.0 N 5-9 Urine Urobilinogen Negative Negative Urine Ketones Trace Abnormal Negative Urine Protein Negative Negative Urine Leukocytes Negative Negative Urine Blood Negative Negative Urine Nitrite Negative Negative Urine Bilirubin Negative Negative Urine Glucose Negative Negative Comp Metabolic Panel 10/28/2017 [facility] Sodium 138 mmol/L N 135-[address] [place] [address] [phone] Potassium 4.2 mmol/L N 3.5-5.0 Chloride 107 [...] 90.4 >60 6 Laboratory test finding 10/28/2017 [facility] Lipase 12 U/L N 11.0-82.0 [address] [place] [address] [phone] Creatine Kinase(CK) 66 U/L N 10-223 C Reactive Protein 4.75 mg/L N <8.01 Troponin-I (TnI) 0.00 ng/mL <0.04 CKMB 10/28/2017 [facility] CKMB ng/mL 2.5 ng/mL N 0.6-6.3 [address] [place] [address] [phone] Laboratory test 10/28/2017 [facility] TSH 1.28 N 0.34-5.60 finding [address] [facility] (Thyroid mcIU/[place] [address] Stim Dlzk) [phone] Magnesium 2.2 mg/dL N 1.9-2.7 Laboratory test 03/03/2017 [facility] Lipase 10 U/L Low 11.0- 82.0 finding [address] [place] [address] [phone] C Reactive Protein 8.08 mg/L High < 5.00 7 Comp Metabolic Panel 03/03/2017 [facility] Sodium 138 mmol/L N 133-145 [address] [place] [address] [phone] Potassium 3.9 mmol/L N 3.5-5.0 Chloride 104 [...] Egfr 103.2 >60 8 Laboratory test 03/03/2017 [facility] Lactic Acid 0.8 mmol/L N 0.5-2.0 [address] [place] [address] [phone] CBC Auto Diff 03/03/2017 [facility] White Blood 6.9 10^3/uL N 3.5-10.[address] [place] [address] [phone] Red Blood Count 4.81 10^6/uL N 4.0-5.4 [...] Blood Cells % 0.3 Urinalysis Profile 03/03/2017 [facility] Urine Color Yellow [address] [place] [address] [phone] Urine Appearance Clear Urine Specific [place] 1.008 Low 1.010-1.030 Urine pH 7.0 N 5-9 Urine Urobilinogen Negative Negative Urine Ketones Negative Negative Urine Protein Negative Negative Urine Leukocytes Negative Negative Urine Blood Negative Negative Urine Nitrite Negative Negative Urine Bilirubin Negative Negative Urine Glucose Negative Negative Urine White Blood Cell Absent Absent Urine Red Blood Cell Absent Absent Urine Bacteria Absent Absent Comp Metabolic Panel 01/26/2017 [facility] Sodium 138 mmol/L N 133-145 [address] [place] [address] [phone] Potassium 4.3 mmol/L N 3.5-5.0 Chloride 103 [...] Egfr 122.6 >60 10 Lipid Profile 01/26/2017 [facility] Triglycerides 311 mg/dL 11 (Trig/Chol/HDL) [address] [place] [address] [phone] Cholesterol 189 mg/dL 12 HDL Cholesterol 34.0 mg/dL 13 LDL Cholesterol 93 mg/dL 14 Rapid 04/13/2016 [facility] Influenza A POSITIVE Abnormal Negative 15 Influenza A & [address] [place] [address] [phone] Influenza B Molecular NEGATIVE N Negative Laboratory test 04/13/2016 [facility] Influenza A & B SEE RESULT [address] [place] [address] [phone] Testosterone Free 11/11/2015 [facility] Free Testosterone 7.01 ng/dL N 4.46- 17 & Total [address] ng/dl 17.1 [place] [address] [phone] Testosterone 219 ng/dL Abnormal 240-950 18 CBC Auto Diff 04/08/2015 [facility] White Blood 7.4 10^3/uL N 3.5-10.[address] [place] [address] [phone] Red Blood Count 4.76 10^6/uL N 4.0-5.4 [...] Cells % 0.1 N Laboratory test 04/08/2015 [facility] C Reactive 5.18 mg/L High < 5.00 [address] [place] [address] [phone] Erythrocyte Sed Rate 15 mm/Hr High 0-14 Lyme Disease Serology Negative N Negative 20 TSH (Thyroid Stim Horm) 2.45 ?IU/mL N 0.34-5.60 Basic Metabolic Panel 10/17/2014 [facility] Sodium 137 mmol/L N 133-145 [address] [place] [address] [phone] Potassium 4.1 mmol/L N 3.5-5.0 Chloride 104 mmol/L N 101-111 Co2 Carbon Dioxide 25 mmol/L N 22-32 Anion Gap 8 mmol/L N 2-11 Glucose 88 mg/dL N 70-100 Blood Urea Nitrogen 10 mg/dL N 6-24 Creatinine 0.92 mg/dL N 0.67-1.17 BUN/Creatinine Ratio 10.9 N 8-20 Calcium 9.4 mg/dL N 8.6-10.3 Egfr Non- 90.2 N >60 Egfr 116.0 N >60 21 Lipid Profile 10/17/2014 [facility] Triglycerides 207 mg/dL N 22 (Trig/Chol/HDL) [address] [place] [address] [phone] Cholesterol 207 mg/dL N 23 HDL Cholesterol 35.1 mg/dL N 24 LDL Cholesterol 131 mg/dL N 25 1 SEE RESULT BELOW Name: YISEL JOVEL : [address]: Tobin Young MD Acct: [id number] Unit: [id number] AGE: 47 Location: ED Re04/04/18 SEX: M Status: REG ER SPEC: [id number] TERE: 04/04/18-[address] [facility] [address]: Kaushal Graham NP REQ: [id number] RECD: 04/04/18 STATUS: RES HR DR: Momo Giraldo III, MD _ SOURCE: NECK SPDESC: ORDERED: Culture Stain Procedure Result Reported Site Wound/Misc Gram Stain Final 04/05/18- 0744 ML 4+ Neutrophils 1+ Epithelial Cells 4+ Gram Positive Cocci 1+ Gram Positive Bacilli Wound/Misc Culture PENDING * ML - Main Lab . END OF REPORT DEPARTMENT OF PATHOLOGY, [address] [place] [address] Arnulfo Galindo M.D. Director [facility] # [id number] 2 SEE RESULT BELOW Name: YISEL JOVEL : [address]: Tobin Young MD Acct: [id number] Unit: [id number] AGE: 47 Location: ED Re04/04/18 SEX: M Status: REG ER SPEC: [id number] TERE: 04/04/[address] [facility] [address]: Kaushal Graham NP REQ: [id number] RECD: 04/04/18 STATUS: KARINE PAT DR: Momo Giraldo III, MD _ SOURCE: NECK SPDESC: ORDERED: MRSA/SA SSTI, Culture Stain Procedure Result Reported Site MRSA/S. aureus SSTI PCR Final 04/05/18- 918 ML Organism 1 MRSA NEGATIVE Organism 2 S.AUREUS NEGATIVE Wound/Misc Gram Stain Final 04/05/18- 0744 ML 4+ Neutrophils 1+ Epithelial Cells 4+ Gram Positive Cocci 1+ Gram Positive Bacilli Wound/Misc Culture Final 04/08/18857 ML Organism 1 NORMAL BARBER Quantity 1+ Mixed anaerobes; unable to isolate for further identification. * ML - Main Lab . END OF REPORT DEPARTMENT OF PATHOLOGY, [address] [place] [address] Arnulfo Galindo M.D. Director [facility] # [id number] 3 SEE RESULT BELOW Name: YISEL JOVEL : [address]: Farhat Garduno MD Acct: [id number] Unit: [id number] AGE: 47 Location: ED Re10/28/17 SEX: M Status: DEP ER SPEC: [id number] TERE: 10/28/17-[address]: Farhat Garduno MD REQ: [id number] RECD: 10/28/17 STATUS: KARINE PAT DR: Cezar Giraldo III, MD _ SOURCE: STOOL SPDESC: ORDERED: C. diff PCR, Stool Culture, Occult Bl, Scn, O P: Giar/Crypt Procedure Result Reported Site Stool Culture Final 10/30/17- 123 ML Result No enteric pathogens isolated Testing [...] CONTINUED ON NEXT PAGE DEPARTMENT OF PATHOLOGY, [address] [place] [address] Arnulfo Galindo M.D. Director [facility] # [id number] Patient: YISEL JOVEL [id number] (Continued) Specimen: [id number] Collected: 10/28/17 Received: 10/28/17 (Continued) Procedure Result [...] is requested. Contact the Microbiology Department at [phone]. TEST LIMITATIONS: As with all diagnostic procedures, [...] . END OF REPORT DEPARTMENT OF PATHOLOGY, [address] [place] [address] Arnulfo Galindo M.D. Director [facility] # [id number] 4 SEE RESULT BELOW Name: YISEL JOVEL : [address]: Farhat Garduno MD Acct: [id number] Unit: [id number] AGE: 47 Location: ED Re10/28/17 SEX: M Status: REG ER SPEC: [id number] TERE: 10/28/17 DR: Farhat Garduno MD REQ: [id number] RECD: 10/28/17 STATUS: KARINE PAT DR: Cezar Giraldo III, MD _ SOURCE: STOOL SPDESC: ORDERED: Fecal Lactoferr Procedure Result Reported Site Stool Specimen Description Final 10/28/17- 2127 ML Stool Color Light Brown Stool Form Nonformed Stool Consistency Liquid Fecal Lactoferrin (Stool WBC) Final 10/28/17- 2127 ML Fecal Lactoferrin Negative by Immunoassay TEST LIMITATIONS: Assay detects elevated levels of lactoferrin released from fecal leukocytes as a marker of intestinal inflammation. The test may not be appropriate in immunocompromised persons. Fecal samples from breast fed infants should not be used with this assay. * ML - Main Lab . END OF REPORT DEPARTMENT OF PATHOLOGY, [address] [place] [address] Arnulfo Galindo M.D. Director [facility] # [id number] 5 [facility] Severe Sepsis and Septic Shock Management [...] 5 Kidney failure <15 (or dialysis) 9 [facility] Severe Sepsis and Septic Shock Management [...] 130-159 High: 160-189 Very High: >189 15 Soap Tender: [id number] BRUNO VASQUEZ 16 SEE RESULT BELOW Name: YISEL JOVEL : [address]: Anibal Roberto MD Acct: [id number] Unit: [id number] AGE: 45 Location: [facility] Re04/13/16 SEX: M Status: REG REF SPEC: [id number] TERE: 04/13/16-[address] [facility] [address]: Chilo Roberto MD REQ: [id number] RECD: 04/13/16 STATUS: COMP _ [facility] ORDERED: Flu A B Request COMMENTS: [id number] Procedure Result Reported Site Rapid Influenza A B Request Final 04/13/162030 ML Specimen received for Influenza A/B Molecular testing * ML - MAIN LAB ([facility]) . END OF REPORT * ML=Testing performed at Main Lab DEPARTMENT OF PATHOLOGY, [address] [place] [address] Arnulfo Galindo M.D. Director [facility] # [id number] 17 ADDITIONAL INFORMATION Testing performed by [facility]. This test was developed and its performance characteristics determined by [facility] in a manner consistent with CLIA requirements. This test has not been cleared or approved by the U.S. Food and Drug Administration. 18 ADDITIONAL INFORMATION Testing performed by Liquid Chromatography-Tandem Mass Spectrometry (LC-MS/MS). This test was developed and its performance characteristics determined by [facility] in a manner consistent with CLIA requirements. This test has not been cleared or approved by the U.S. Food and Drug Administration. Test Performed by: [place] [address] [employer]: Farhat Yeung II, M.D., Ph.D. 19 Acute inflammation: >10.00 20 Serologic response to B. burgdorferi infection is not detected, but cannot rule out early infection during which low or undetectable antibody levels to B. burgdorferi may be present. If clinically indicated, a new serum specimen should be submitted in 7-14 days. Test Performed by: [place] [address] [employer]: Farhat Yeung II, M.D., Ph.D. 21 Because [...] mg/dL Procedures Date Code Description Status 04/09/2018 59291 Debridement Skin Infected To 10% Completed 12/12/2016 58824 Polysomnography Sleep Staging 4+ Parameters W/Cpap Completed Encounters Type Date Location Provider Dx Diagnosis Office Visit 04/09/2018 Surgical Tesfaye Santana, L03.221 Cellulitis of neck 10:15a [facility] , FACS L72.3 Sebaceous cyst Office Visit 04/02/2018 10:00a [facility] Internal Laurie Lin MD L02.11 Cutaneous Medicine - [place] abscess of neck Rd I10 Essential (primary) hypertension Office Visit 11/23/2017 4:00p [facility] Internal Cezar Painter Infectious Magda Giraldo M.D. gastroenteritis and [place] colitis, unspecified Z23 Encounter for immunization R03.0 Elevated blood-pressure reading, w/o diagnosis of htn Office Visit 03/06/2017 1:00p [facility] Internal Cezar Giraldo M.D. gastroenteritis and [place] colitis, unspecified Office Visit 02/01/2017 3:20p [facility] Internal Cezar Nevarez R03.0 Elevated Magda Giraldo M.D. blood-pressure [place] reading, w/o diagnosis of htn J06.9 Acute upper respiratory infection, unspecified E78.2 Mixed hyperlipidemia Office Visit 01/04/2017 2:40p [facility] Internal Cezar Nevarez R03.0 Elevated Magda [...] Services Of ISAURA Mar, RN, apnea (adult) [facility] ACCESS DATABASE DEVELOPER-BC (pediatric) G47.14 Hypersomnia due to medical condition Office Visit 01/02/2017 [facility] Internal Cezar Nevarez R03.0 Elevated 2:00p Magda Giraldo M.D. blood-pressure [place] reading, w/o diagnosis of htn Office Visit 08/17/2016 Pulmonology And Radha R09.02 Hypoxemia 8:00a [facility] MD Joanne [facility] R40.0 Somnolence R12 Heartburn R45.1 Restlessness and agitation E66.09 Other obesity due to excess calories Z68.36 Body mass index (BMI) 36.0-36.9, adult Office Visit 07/29/2016 10:40a [facility] Internal Cezar Nevarez M54.5 Low back pain Magda Giraldo M.D. [place] Office Visit 07/07/2016 4:00p [facility] Internal Cezar Nevarez M54.5 Low back pain Magda Giraldo M.D. [place] Office Visit 06/21/2016 4:00p [facility] Internal Cezar Nevarez M54.5 Low back pain Magda Giraldo M.D. [place] Office Visit 04/20/2016 11:00a [facility] Internal Armando Boateng, J06.9 Acute upper Medicine - [place] ACCESS DATABASE DEVELOPER respiratory Rd infection, unspecified R05 Cough J09.x2 Flu due to ident novel influenza A virus w oth resp manifest Office Visit 04/13/2016 11:10a [facility] Internal Chilo Castrejon J11.1 Flu due to Medicine - Tbtho Roberto M.D.,FACP unidentified Rd influenza virus w oth resp manifest Office Visit 04/04/2016 2:00p [facility] Internal Cezar Nevarez R03.0 Elevated Magda Giraldo M.D. blood-pressure [place] reading, w/o diagnosis of htn Office Visit 02/24/2016 4:20p [facility] Internal Cezar Nevarez R03.0 Elevated Magda Giraldo M.D. 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 2 months with BB for excision of neck lesion. 30 umecaelF59.3 Sebaceous cyst Goals 04/09/2018 - Tesfaye Santana MD, FACSL03.221 Cellulitis of neckAfter packing is removed on Monday, antibiotic ointment twice daily, with Band-Aid only during daytime hours. Complete antibiotics
--- OUTSIDE RECORDS SUMMARY | 2018-04-11 11:56 | XMS REPORT | Continuity of Care Document ---
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 [employer] Tobacco Use Start: Unknown Never Smoked Cigarettes Smoking Status Reviewed: 04/02/18 Never Smoked Cigarettes ETOH Use Occasionally consumes [...] once a day Unknown Nystatin Active Powder [id number] bid as needed Unknown /0000 t/GM Amitriptyline Active Tablets 10mg 1 tab po Unknown HCL every night Aleve Active Tablets 220mg as needed Unknown / Testosterone 00 Active Solution 100mg/ml 1 milliliters Unknown Cypionate /0000 intramuscular for 14 days Lexapro Active Tablets 20mg 1 by mouth Unknown /0000 every day Mylanta Active Tablets 20mg 20ml by mouth Unknown /0000 every 4 hours for dyspepsia Ditropan 10/28 Hx Tablets 5mg Twice Daily Unknown Repack /2017 - 03/31 Lidocaine 07/07 Hx Patches 5% 30uni apply patch M54.5 Cezar E. /2016 ts up to 12 Kristal, - hours once a M.D. 07/29 day. 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 06/20 Ibuprofen Hx Capsules 200mg as needed Unknown /0000 - 07/28 Buspirone HCL Hx Tablets 15mg take one Unknown /0000 tablet by - mouth twice a Ondansetron Hx Tablets 4mg Domenico, /0000 Joann Allen M.D. 03/31 Immunizations CPT Code Status Date Vaccine Reaction Lot # [id number] Given 11/23/2017 Influenza Virus Vaccine, Pt. tolerated well. [id number] Quadrivalent, Split, Preservative Free [id number] Given 12/19/2015 Tdap - Tetanus/Diptheria/Acellular Pertussis Vital Signs Date Vital Result Comment 04/02/2018 10:00am Height 72.25 inches 6'0.25" Weight [...] Test Result H/L Range Note Wound 04/04/2018 [facility] Wound/Misc SEE RESULT 1 Culture/Sensi [address] Culture[place] [address] Stain [phone] Laboratory test 04/04/2018 [facility] MRSA/S. aureus SEE RESULT [address] [place] [address] [phone] Laboratory test 10/28/2017 [facility] C Difficile PCR SEE RESULT [address] [place] [address] [phone] Laboratory test 10/28/2017 [facility] Fecal SEE RESULT [address] [place] [address] (Stool WBC) [phone] CBC Auto Diff 10/28/2017 [facility] White Blood 9.1 10^3/uL N 3.5-10.[address] [place] [address] [phone] Red Blood Count 5.37 10^6/uL N 4.00-5.40 [...] Red Blood Cells % 0.1 Inr/Protime 10/28/2017 [facility] Inr 0.98 N 0.77-1.02 [address] [place] [address] [phone] Laboratory test 10/28/2017 [facility] Partial 30.9 seconds N 26.0-36.3 finding 101 [facility] [place] [address] PTT [phone] Lactic Acid 1.2 mmol/L N 0.5-2.0 5 Urinalysis Profile 10/28/2017 [facility] Urine Color Yellow [address] [place] [address] [phone] Urine Appearance Clear Urine Specific [place] 1.005 Low 1.010-1.030 Urine pH 6.0 N 5-9 Urine Urobilinogen Negative Negative Urine Ketones Trace Abnormal Negative Urine Protein Negative Negative Urine Leukocytes Negative Negative Urine Blood Negative Negative Urine Nitrite Negative Negative Urine Bilirubin Negative Negative Urine Glucose Negative Negative Comp Metabolic Panel 10/28/2017 [facility] Sodium 138 mmol/L N 135-145 [address] [place] [address] [phone] Potassium 4.2 mmol/L N 3.5-5.0 Chloride 107 [...] 90.4 >60 6 Laboratory test finding 10/28/2017 [facility] Lipase 12 U/L N 11.0-82.0 [address] [place] [address] [phone] Creatine Kinase(CK) 66 U/L N 10-223 C Reactive Protein 4.75 mg/L N <8.01 Troponin-I (TnI) 0.00 ng/mL <0.04 CKMB 10/28/2017 [facility] CKMB ng/mL 2.5 ng/mL N 0.6-6.3 [address] [place] [address] [phone] Laboratory test 10/28/2017 [facility] TSH 1.28 N 0.34-5.60 finding 101 (Thyroid mcIU/[place] [address] Stim Horm) [phone] Magnesium 2.2 mg/dL N 1.9-2.7 Laboratory test 03/03/2017 [facility] Lipase 10 U/L Low 11.0- 82.0 [place] [address] [phone] C Reactive Protein 8.08 mg/L High < 5.00 7 Comp Metabolic Panel 03/03/2017 [facility] Sodium 138 mmol/L N 133-145 [address] [place], [place] [address] [phone] Potassium 3.9 mmol/L N 3.5-5.0 Chloride 104 [...] Egfr 103.2 >60 8 Laboratory test 03/03/2017 [facility] Lactic Acid 0.8 mmol/L N 0.5-2.0 9 finding [address] [place] [address] [phone] CBC Auto Diff 03/03/2017 [facility] White Blood 6.9 10^3/uL N 3.5-10.[address] [place] [address] [phone] Red Blood Count 4.81 10^6/uL N 4.0-5.4 [...] Blood Cells % 0.3 Urinalysis Profile 03/03/2017 [facility] Urine Color Yellow [address] [place] [address] [phone] Urine Appearance Clear Urine Specific [place] 1.008 Low 1.010-1.030 Urine pH 7.0 N 5-9 Urine Urobilinogen Negative Negative Urine Ketones Negative Negative Urine Protein Negative Negative Urine Leukocytes Negative Negative Urine Blood Negative Negative Urine Nitrite Negative Negative Urine Bilirubin Negative Negative Urine Glucose Negative Negative Urine White Blood Cell Absent Absent Urine Red Blood Cell Absent Absent Urine Bacteria Absent Absent Comp Metabolic Panel 01/26/2017 [facility] Sodium 138 mmol/L N 133-145 [address] [place] [address] [phone] Potassium 4.3 mmol/L N 3.5-5.0 Chloride 103 [...] Egfr 122.6 >60 10 Lipid Profile 01/26/2017 [facility] Triglycerides 311 mg/dL 11 (Trig/Chol/HDL) [address] [place] [address] [phone] Cholesterol 189 mg/dL 12 HDL Cholesterol 34.0 mg/dL 13 LDL Cholesterol 93 mg/dL 14 Rapid 04/13/2016 [facility] Influenza A POSITIVE Abnormal Negative 15 Influenza A & [address] [place] [place] [address] [phone] Influenza B Molecular NEGATIVE N Negative Laboratory test 04/13/2016 [facility] Influenza A & B SEE RESULT [address] [place] [address] [phone] Testosterone Free 11/11/2015 [facility] Free Testosterone 7.01 ng/dL N 4.46- 17 & Total [address] ng/dl 17.1 [place] [address] [phone] Testosterone 219 ng/dL Abnormal 240-950 18 CBC Auto Diff 04/08/2015 [facility] White Blood 7.4 10^3/uL N 3.5-10.[address] [place] [address] [phone] Red Blood Count 4.76 10^6/uL N 4.0-5.4 [...] Cells % 0.1 N Laboratory test 04/08/2015 [facility] C Reactive 5.18 mg/L High < 5.00 19 finding [address] [facility] [place] [address] [phone] Erythrocyte Sed Rate 15 mm/Hr High 0-14 Lyme Disease Serology Negative N Negative 20 TSH (Thyroid Stim Horm) 2.45 ?IU/mL N 0.34-5.60 Basic Metabolic Panel 10/17/2014 [facility] Sodium 137 mmol/L N 133-145 [address] [place] [address] [phone] Potassium 4.1 mmol/L N 3.5-5.0 Chloride 104 mmol/L N 101-111 Co2 Carbon Dioxide 25 mmol/L N 22-32 Anion Gap 8 mmol/L N 2-11 Glucose 88 mg/dL N 70-100 Blood Urea Nitrogen 10 mg/dL N 6-24 Creatinine 0.92 mg/dL N 0.67-1.17 BUN/Creatinine Ratio 10.9 N 8-20 Calcium 9.4 mg/dL N 8.6-10.3 Egfr Non- 90.2 N >60 Egfr 116.0 N >60 21 Lipid Profile 10/17/2014 [facility] Triglycerides 207 mg/dL N 22 (Trig/Chol/HDL) [address] [place] [address] [phone] Cholesterol 207 mg/dL N 23 HDL Cholesterol 35.1 mg/dL N 24 LDL Cholesterol 131 mg/dL N 25 1 SEE RESULT BELOW Name: YISEL JOVEL : [address]: Tobin Young MD Acct: [id number] Unit: [id number] AGE: 47 Location: ED Re04/04/18 SEX: M Status: REG ER SPEC: [id number] TERE: 04/04/[address]: Kaushal Graham NP REQ: [id number] RECD: 04/04/18 STATUS: RES BI YADAV: Momo Giraldo III, MD _ SOURCE: NECK SPDESC: ORDERED: Culture Stain Procedure Result Reported Site Wound/Misc Gram Stain Final 04/05/18- 0744 ML 4+ Neutrophils 1+ Epithelial Cells 4+ Gram Positive Cocci 1+ Gram Positive Bacilli Wound/Misc Culture PENDING * ML - Main Lab . END OF REPORT DEPARTMENT OF PATHOLOGY, [address] [place] [address] Arnulfo Galindo M.D. Director [facility] # [id number] 2 SEE RESULT BELOW Name: YISEL JOVEL : [address]: Tobin Young MD Acct: [id number] Unit: [id number] AGE: 47 Location: ED Re04/04/18 SEX: M Status: REG ER SPEC: [id number] TERE: 04/04/[address] [facility] [address]: Kaushal Graham NP REQ: [id number] RECD: 04/04/18 STATUS: RES HR DR: Momo Giraldo III, MD _ SOURCE: NECK SPDESC: ORDERED: MRSA/SA SSTI, Culture Stain Procedure Result Reported Site MRSA/S. aureus SSTI PCR Final 04/05/18- 918 ML Organism 1 MRSA NEGATIVE Organism 2 S.AUREUS NEGATIVE Wound/Misc Gram Stain Final 04/05/18- 0744 ML 4+ Neutrophils 1+ Epithelial Cells 4+ Gram Positive Cocci 1+ Gram Positive Bacilli Wound/Misc Culture Preliminary 04/05/18- 1251 ML No Growth Day 1 * ML - Main Lab . END OF REPORT DEPARTMENT OF PATHOLOGY, [address] [place] [address] Arnulfo Galindo M.D. Director [facility] # [id number] 3 SEE RESULT BELOW Name: YISEL JOVEL : [address]: Farhat Garduno MD Acct: [id number] Unit: [id number] AGE: 47 Location: ED Re10/28/17 SEX: M Status: DEP ER SPEC: [id number] TERE: 10/28/[address]: Farhat Garduno MD REQ: [id number] RECD: 10/28/17 STATUS: KARINE PAT DR: Cezar [...] Immunochromatographic Assay C. difficile PCR Final 10/28/17- 2137 ML Organism 1 027 Presumptive NEGATIVE Organism 2 Toxigenic C.diff NEGATIVE Stool Occult Blood (1) Final 10/28/17- 2101 ML Stool Occult Blood Negative CONTINUED ON NEXT PAGE DEPARTMENT OF PATHOLOGY, [address] [place] [address] Arnulfo Galindo M.D. Director [facility] # [id number] Patient: YISEL JOVEL [id number] (Continued) Specimen: [id number] Collected: 10/28/17-2033 Received: 10/28/17 (Continued) Procedure Result Reported Site [...] is requested. Contact the Microbiology Department at [phone]. TEST LIMITATIONS: As with all diagnostic procedures, [...] . END OF REPORT DEPARTMENT OF PATHOLOGY, [address] [place] [address] Arnulfo Galindo M.D. Director [facility] # [id number] 4 SEE RESULT BELOW Name: YISEL JOVEL : [address]: Farhat Garduno MD Acct: [id number] Unit: [id number] AGE: 47 Location: ED Re10/28/17 SEX: M Status: REG ER SPEC: [id number] TERE: 10/28/17-2029 DR: Farhat Garduno MD REQ: [id number] RECD: 10/28/17 STATUS: KARINE PAT DR: Cezar [...] . END OF REPORT DEPARTMENT OF PATHOLOGY, [address] [place] [address] Arnulfo Galindo M.D. Director [facility] # [id number] 5 [facility] Severe Sepsis and Septic Shock Management [...] 5 Kidney failure <15 (or dialysis) 9 [facility] Severe Sepsis and Septic Shock Management [...] 130-159 High: 160-189 Very High: >189 15 Boat Outfitter: [id number] DUTCHNOForest VASQUEZ 16 SEE RESULT BELOW Name: YISEL JOVEL : [address]: Anibal Roberto MD Acct: [id number] Unit: [id number] AGE: 45 Location: [facility] Re04/13/16 SEX: M Status: REG REF SPEC: [id number] TERE: 04/13/16-[address] [facility] [address]: Chilo Roberto MD REQ: [id number] RECD: 04/13/16 STATUS: COMP _ SOURCE: [facility]: ORDERED: Winter Xiao Request COMMENTS: [id number] Procedure Result Reported Site Rapid Influenza A B Request Final 04/13/162030 ML Specimen received for Influenza A/B Molecular testing * ML - MAIN LAB ([facility]) . END OF REPORT * ML=Testing performed at Main Lab DEPARTMENT OF PATHOLOGY, [address] [place] [address] Arnulfo Galindo M.D. Director [facility] # [id number] 17 ADDITIONAL INFORMATION Testing performed by [facility]. This test was developed and its performance characteristics determined by [facility] in a manner consistent with CLIA requirements. This test has not been cleared or approved by the U.S. Food and Drug Administration. 18 ADDITIONAL INFORMATION Testing performed by Liquid Chromatography-Tandem Mass Spectrometry (LC-MS/MS). This test was developed and its performance characteristics determined by [facility] in a manner consistent with CLIA requirements. This test has not been cleared or approved by the U.S. Food and Drug Administration. Test Performed by: [address] [address] Drag Car Racer: Farhat Yeung II, M.D., Ph.D. 19 Acute inflammation: >10.00 20 Serologic response to B. burgdorferi infection is not detected, but cannot rule out early infection during which low or undetectable antibody levels to B. burgdorferi may be present. If clinically indicated, a new serum specimen should be submitted in 7-14 days. Test Performed by: [place] [address] [employer] Car Racer: Farhat Yeung II, M.D., Ph.D. 21 Because [...] >189 mg/dL Procedures Date Code Description Status 12/12/2016 75034 Polysomnography Sleep Staging 4+ Parameters W/Cpap Completed Encounters Type Date Location Provider Dx Diagnosis Office Visit 04/02/2018 [facility] Laurie Lin MD L02.11 Cutaneous abscess 10:00a Medicine - [place] of neck [address] I10 Essential (primary) hypertension Office Visit 11/23/2017 4:00p [facility] Cezar Giraldo M.D. gastroenteritis and [place] colitis, unspecified Z23 Encounter for immunization R03.0 Elevated blood-pressure reading, w/o diagnosis of htn Office Visit 03/06/2017 1:00p [facility] Internal Cezar Giraldo M.D. gastroenteritis and [place] colitis, unspecified Office Visit 02/01/2017 3:20p [facility] Internal Cezar Nevarez R03.0 Elevated Magda Giraldo M.D. blood-pressure [place] reading, w/o diagnosis of htn J06.9 Acute upper respiratory infection, unspecified E78.2 Mixed hyperlipidemia Office Visit 01/04/2017 2:40p [facility] Internal Cezar Nevarez R03.0 Elevated Magda Giraldo [...] Services Of [facility]UR[facility] Mar, RN, apnea (adult) [facility]- (pediatric) G47.14 Hypersomnia due to medical condition Office Visit 01/02/2017 [facility] Manohar Nevarez R03.0 Elevated 2:00p Magda Giraldo M.D. blood-pressure [place] reading, w/o diagnosis of htn Office Visit 08/17/2016 Pulmonology And Radha R09.02 Hypoxemia 8:00a Sleep Services Of MD Joanne [facility] R40.0 Somnolence R12 Heartburn R45.1 Restlessness and agitation E66.09 Other obesity due to excess calories Z68.36 Body mass index (BMI) 36.0-36.9, adult Office Visit 07/29/2016 10:40a [facility] Internal Cezar Nevarez M54.5 Low back pain Magda Giraldo M.D. [place] Office Visit 07/07/2016 4:00p [facility] Internal Cezar Nevarez M54.5 Low back pain Magda Giraldo M.D. [place] Office Visit 06/21/2016 4:00p [facility] Internal Cezar Nevarez M54.5 Low back pain Magda Giraldo M.D. 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 blood-pressure [place] reading, w/o diagnosis of htn Office Visit 02/24/2016 4:20p [facility] Internal Cezar Nevarez R03.0 Elevated Magda Giraldo M.D. 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
--- OUTSIDE RECORDS SUMMARY | 2018-04-11 11:56 | XMS REPORT | Continuity of Care Document ---
:1970 External Reference #:[id number] Author Name LeahBeatrizie Care Team Providers Name Role Phone Cezar Giraldo III, MD Primary Care Physician Unavailable Payers Date Identification Numbers Payment Provider Subscriber Effective: 2014 Policy Number: [id number] [employer] Name: [id number] [address] PayID: [id number] [place] [address] Advance Directives Description No Information Available Problems [...] apnea Radha Mar DNP, RN, Active syndrome SCHOOL PSYCHOLOGIST-BC Onset: 01/03/2017 Hypoxemia Radha Mar DNP, RN, Active SCHOOL PSYCHOLOGIST-BC Onset: 01/03/2017 Hypersomnia Radha Mar DNP, RN, Active SCHOOL PSYCHOLOGIST-BC Onset: 01/04/2017 Benign prostatic hypertrophy Cezar Giraldo M.D. 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 . 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, LAMP DECORATOR - day as needed 12/31 Guaifenesin-Code 04/20 Hx Solution 100-10mg/ 118ml take 10 R05 Zsofia ine /2016 5ML milliliters Kilo, - by mouth SCHOOL PSYCHOLOGIST 06/20 every evening with plenty of water as needed for cough for 7 days as needed Amoxicillin/Clav 04/20 Hx Tablets 875-125mg 14tab take 1 tab by J06.9 Zsofia ulanate /2016 s mouth twice a Kilo, Potassium - day for 7 SCHOOL PSYCHOLOGIST Oseltamivir 04/13 Hx Capsules 75mg 10cap 1 po bid Chilo Lopez /2016 s Joann Lino M.D.,FACP 04/18 Ciprofloxacin Hx [...] Code Status Date Vaccine Reaction Lot # [id number] Given 11/23/2017 Influenza Virus Vaccine, Pt. tolerated well. [id number] Quadrivalent, Split, Preservative Free [id number] Given 12/19/2015 Tdap - Tetanus/Diptheria/Acellular Pertussis Vital Signs Date Vital Result Comment 04/06/2018 2:55pm Height 72.25 inches 6'0.25" Weight [...] Test Result H/L Range Note Wound 04/04/2018 [facility] Wound/Misc SEE RESULT 1 Culture/Sensi [address] [place] [address] Stain [phone] Laboratory test 04/04/2018 [facility] MRSA/S. aureus SEE RESULT [address] [address] [phone] Laboratory test 10/28/2017 [facility] C Difficile PCR SEE RESULT [address] [place] [address] [phone] Laboratory test 10/28/2017 [facility] Fecal SEE RESULT [address] [address] (Stool WBC) [phone] CBC Auto Diff 10/28/2017 [facility] White Blood 9.1 10^3/uL N 3.5-10.[address] [place] [address] [phone] Red Blood Count 5.37 10^6/uL N 4.00-5.40 [...] Red Blood Cells % 0.1 Inr/Protime 10/28/2017 [facility] Inr 0.98 N 0.77-1.02 [address] [place] [address] [phone] Laboratory test 10/28/2017 [facility] Partial 30.9 seconds N 26.0-36.3 finding [address] [facility] [place] [address] PTT [phone] Lactic Acid 1.2 mmol/L N 0.5-2.0 5 Urinalysis Profile 10/28/2017 [facility] Urine Color Yellow [address] [place] [address] [phone] Urine Appearance Clear Urine Specific [place] 1.005 Low 1.010-1.030 Urine pH 6.0 N 5-9 Urine Urobilinogen Negative Negative Urine Ketones Trace Abnormal Negative Urine Protein Negative Negative Urine Leukocytes Negative Negative Urine Blood Negative Negative Urine Nitrite Negative Negative Urine Bilirubin Negative Negative Urine Glucose Negative Negative Comp Metabolic Panel 10/28/2017 [facility] Sodium 138 mmol/L N 135-[address] [place] [address] [phone] Potassium 4.2 mmol/L N 3.5-5.0 Chloride 107 [...] 90.4 >60 6 Laboratory test finding 10/28/2017 [facility] Lipase 12 U/L N 11.0-82.0 [address] [place], [place] [address] [phone] Creatine Kinase(CK) 66 U/L N 10-223 C Reactive Protein 4.75 mg/L N <8.01 Troponin-I (TnI) 0.00 ng/mL <0.04 CKMB 10/28/2017 [facility] CKMB ng/mL 2.5 ng/mL N 0.6-6.3 [address] [place] [address] [phone] Laboratory test 10/28/2017 [facility] TSH 1.28 N 0.34-5.60 finding [facility] (Thyroid mcIU/[place] [address] Stim Cgau) [phone] Magnesium 2.2 mg/dL N 1.9-2.7 Laboratory test 03/03/2017 [facility] Lipase 10 U/L Low 11.0- 82.0 [place] [address] [phone] C Reactive Protein 8.08 mg/L High < 5.00 7 Comp Metabolic Panel 03/03/2017 [facility] Sodium 138 mmol/L N 133-145 [address] [place] [address] [phone] Potassium 3.9 mmol/L N 3.5-5.0 Chloride 104 [...] Egfr 103.2 >60 8 Laboratory test 03/03/2017 [facility] Lactic Acid 0.8 mmol/L N 0.5-2.0 [address] [place] [address] [phone] CBC Auto Diff 03/03/2017 [facility] White Blood 6.9 10^3/uL N 3.5-10.[address] [place] [address] [phone] Red Blood Count 4.81 10^6/uL N 4.0-5.4 [...] Blood Cells % 0.3 Urinalysis Profile 03/03/2017 [facility] Urine Color Yellow [address] [place] [address] [phone] Urine Appearance Clear Urine Specific [place] 1.008 Low 1.010-1.030 Urine pH 7.0 N 5-9 Urine Urobilinogen Negative Negative Urine Ketones Negative Negative Urine Protein Negative Negative Urine Leukocytes Negative Negative Urine Blood Negative Negative Urine Nitrite Negative Negative Urine Bilirubin Negative Negative Urine Glucose Negative Negative Urine White Blood Cell Absent Absent Urine Red Blood Cell Absent Absent Urine Bacteria Absent Absent Comp Metabolic Panel 01/26/2017 [facility] Sodium 138 mmol/L N 133-[address] [place] [address] [phone] Potassium 4.3 mmol/L N 3.5-5.0 Chloride 103 [...] Egfr 122.6 >60 10 Lipid Profile 01/26/2017 [facility] Triglycerides 311 mg/dL 11 (Trig/Chol/HDL) [address] [place] [address] [phone] Cholesterol 189 mg/dL 12 HDL Cholesterol 34.0 mg/dL 13 LDL Cholesterol 93 mg/dL 14 Rapid 04/13/2016 [facility] Influenza A POSITIVE Abnormal Negative 15 Influenza A & [address] [place] [address] [phone] Influenza B Molecular NEGATIVE N Negative Laboratory test 04/13/2016 [facility] Influenza A & B SEE RESULT [address] [place] [address] [phone] Testosterone Free 11/11/2015 [facility] Free Testosterone 7.01 ng/dL N 4.46- 17 & Total [address] ng/dl 17.1 [place] [address] [phone] Testosterone 219 ng/dL Abnormal 240-950 18 CBC Auto Diff 04/08/2015 [facility] White Blood 7.4 10^3/uL N 3.5-10.[address] [place] [address] [phone] Red Blood Count 4.76 10^6/uL N 4.0-5.4 [...] Cells % 0.1 N Laboratory test 04/08/2015 [facility] C Reactive 5.18 mg/L High < 5.00 [address] [place] [address] [phone] Erythrocyte Sed Rate 15 mm/Hr High 0-14 Lyme Disease Serology Negative N Negative 20 TSH (Thyroid Stim Horm) 2.45 ?IU/mL N 0.34-5.60 Basic Metabolic Panel 10/17/2014 [facility] Sodium 137 mmol/L N 133-[address] [place] [address] [phone] Potassium 4.1 mmol/L N 3.5-5.0 Chloride 104 mmol/L N 101-111 Co2 Carbon Dioxide 25 mmol/L N 22-32 Anion Gap 8 mmol/L N 2-11 Glucose 88 mg/dL N 70-100 Blood Urea Nitrogen 10 mg/dL N 6-24 Creatinine 0.92 mg/dL N 0.67-1.17 BUN/Creatinine Ratio 10.9 N 8-20 Calcium 9.4 mg/dL N 8.6-10.3 Egfr Non- 90.2 N >60 Egfr 116.0 N >60 21 Lipid Profile 10/17/2014 [facility] Triglycerides 207 mg/dL N 22 (Trig/Chol/HDL) [address] [place] [address] [phone] Cholesterol 207 mg/dL N 23 HDL Cholesterol 35.1 mg/dL N 24 LDL Cholesterol 131 mg/dL N 25 1 SEE RESULT BELOW Name: YISEL JOVEL : [address]: Tobin Young MD Acct: [id number] Unit: [id number] AGE: 47 Location: ED Re04/04/18 SEX: M Status: REG ER SPEC: [id number] TERE: 04/04/[address]: Kaushal Graham NP REQ: [id number] RECD: 04/04/18 STATUS: RES [facility] DR: Momo Giraldo III, MD _ SOURCE: NECK SPDESC: ORDERED: Culture Stain Procedure Result Reported Site Wound/Misc Gram Stain Final 04/05/18- 743 ML 4+ Neutrophils 1+ Epithelial Cells 4+ Gram Positive Cocci 1+ Gram Positive Bacilli Wound/Misc Culture PENDING * ML - Main Lab . END OF REPORT DEPARTMENT OF PATHOLOGY, [address] [place] [address] Arnulfo Galindo M.D. Director [facility] # [id number] 2 SEE RESULT BELOW Name: YISEL JOVEL : [address]: Tobin Young MD Acct: [id number] Unit: [id number] AGE: 47 Location: ED Re04/04/18 SEX: M Status: REG ER SPEC: [id number] TERE: 04/04/[address] [facility] [address]: Kaushal Graham NP REQ: [id number] RECD: 04/04/18 STATUS: RES [facility] DR: Momo Giraldo III, MD _ SOURCE: NECK SPDESC: ORDERED: MRSA/SA SSTI, Culture Stain Procedure Result Reported Site MRSA/S. aureus SSTI PCR Final 04/05/18- 0919 ML Organism 1 MRSA NEGATIVE Organism 2 S.AUREUS NEGATIVE Wound/Misc Gram Stain Final 04/05/18- 0744 ML 4+ Neutrophils 1+ Epithelial Cells 4+ Gram Positive Cocci 1+ Gram Positive Bacilli Wound/Misc Culture Preliminary 04/06/18- 1200 ML <No reportable results for this procedure> * ML - Main Lab . END OF REPORT DEPARTMENT OF PATHOLOGY, [address] [place] [address] Arnulfo Galindo M.D. Director [facility] # [id number] 3 SEE RESULT BELOW Name: YISEL JOVEL : [address]: Farhat Garduno MD Acct: [id number] Unit: [id number] AGE: 47 Location: ED Re10/28/17 SEX: M Status: DEP ER SPEC: [id number] TERE: 10/28/[address]: Farhat Garduno MD REQ: [id number] RECD: 10/28/17 STATUS: KRAINE PAT DR: Cezar Giraldo III, MD _ [...] are required. Stool Specimen Description Final 10/28/17- 205 ML Stool Color Light Brown Stool Form [...] CONTINUED ON NEXT PAGE DEPARTMENT OF PATHOLOGY, [address] [place] [address] Arnulfo Galindo M.D. Director [facility] # [id number] Patient: YISEL JOVEL [id number] (Continued) Specimen: [id number] Collected: 10/28/17 Received: 10/28/17 (Continued) Procedure Result [...] is requested. Contact the Microbiology Department at [phone]. TEST LIMITATIONS: As with all diagnostic procedures, [...] . END OF REPORT DEPARTMENT OF PATHOLOGY, [address] [place] [address] Arnulfo Galindo M.D. Director [facility] # [id number] 4 SEE RESULT BELOW Name: YISEL JOVEL : [address]: Farhat Garduno MD Acct: [id number] Unit: [id number] AGE: 47 Location: ED Re10/28/17 SEX: M Status: REG ER SPEC: [id number] TERE: 10/28/17 DR: Farhat Garduno MD REQ: [id number] RECD: 10/28/17 STATUS: KARINE PAT DR: Cezar [...] . END OF REPORT DEPARTMENT OF PATHOLOGY, [address] [place] [address] Arnulfo Galindo M.D. Director [facility] # [id number] 5 [facility] Severe Sepsis and Septic Shock Management Bundle [...] 5 Kidney failure <15 (or dialysis) 9 [facility] Severe Sepsis and Septic Shock Management Bundle [...] 130-159 High: 160-189 Very High: >189 15 [place] Hand: [id number] BRUNO VASQUEZ 16 SEE RESULT BELOW Name: YISEL JOVEL : [address]: Anibal Roberto MD Acct: [id number] Unit: [id number] AGE: 45 Location: [facility] Re04/13/16 SEX: M Status: REG REF SPEC: [id number] TERE: 04/13/16-[address] [facility] [address]: Chilo Roberto MD REQ: [id number] RECD: 04/13/16 STATUS: COMP _ SOURCE: [facility]: ORDERED: Flu A B Request COMMENTS: [id number] Procedure Result Reported Site Rapid Influenza A B Request Final 04/13/16- 2030 ML Specimen received for Influenza A/B Molecular testing * ML - MAIN LAB ([facility]) . END OF REPORT * ML=Testing performed at Main Lab DEPARTMENT OF PATHOLOGY, [address] [place] [address] Arnulfo Galindo M.D. Director [facility] # [id number] 17 ADDITIONAL INFORMATION Testing performed by [facility]. This test was developed and its performance characteristics determined by [facility] in a manner consistent with CLIA requirements. This test has not been cleared or approved by the U.S. Food and Drug Administration. 18 ADDITIONAL INFORMATION Testing performed by Liquid Chromatography-Tandem Mass Spectrometry (LC-MS/MS). This test was developed and its performance characteristics determined by [facility] in a manner consistent with CLIA requirements. This test has not been cleared or approved by the U.S. Food and Drug Administration. Test Performed by: [place] [address] Drip Molder: Farhat Yeung II, M.D., Ph.D. 19 Acute inflammation: >10.00 20 Serologic response to B. burgdorferi infection is not detected, but cannot rule out early infection during which low or undetectable antibody levels to B. burgdorferi may be present. If clinically indicated, a new serum specimen should be submitted in 7-14 days. Test Performed by: [place] [address] Drip Molder: Farhat Yeung II, M.D., Ph.D. 21 Because [...] mg/dL Procedures Date Code Description Status 12/12/2016 39795 Polysomnography Sleep Staging 4+ Parameters W/Cpap Completed Encounters Type Date Location Provider Dx Diagnosis Office Visit 04/02/2018 [facility] Internal Laurie Lin MD L02.11 Cutaneous abscess 10:00a Medicine - [place] [address] I10 Essential (primary) hypertension Office Visit 11/23/2017 4:00p [facility] Internal Cezar Giraldo M.D. gastroenteritis and [place] colitis, unspecified Z23 Encounter for immunization R03.0 Elevated blood-pressure reading, w/o diagnosis of htn Office Visit 03/06/2017 1:00p [facility] Internal Ceazr Giraldo M.D. gastroenteritis and [place] colitis, unspecified Office Visit 02/01/2017 3:20p [facility] Internal Cezar Nevarez R03.0 Elevated Magda Giraldo M.D. blood-pressure [place] reading, w/o diagnosis of htn J06.9 Acute upper respiratory infection, unspecified E78.2 Mixed hyperlipidemia Office Visit 01/04/2017 2:40p [facility] Internal Cezar Nevarez R03.0 Elevated [...] Services Of ISAURA Mar, RN, apnea (adult) [facility] SCHOOL PSYCHOLOGIST-BC (pediatric) G47.14 Hypersomnia due to medical condition Office Visit 01/02/2017 [facility] Internal Cezar Nevarez R03.0 Elevated 2:00p Magda Giraldo M.D. blood-pressure [place] reading, w/o diagnosis of htn Office Visit 08/17/2016 Pulmonology And Radha R09.02 Hypoxemia 8:00a Sleep Services Of MD Joanne [facility] R40.0 Somnolence R12 Heartburn R45.1 Restlessness and agitation E66.09 Other obesity due to excess calories Z68.36 Body mass index (BMI) 36.0-36.9, adult Office Visit 07/29/2016 10:40a [facility] Internal Cezar Nevarez M54.5 Low back pain Magda Giraldo M.D. [place] Office Visit 07/07/2016 4:00p [facility] Internal Cezar Nevarez M54.5 Low back pain Magda Giraldo M.D. [place] Office Visit 06/21/2016 4:00p [facility] Internal Cezar Nevarez M54.5 Low back pain Magda Giraldo M.D. [place] Office Visit 04/20/2016 11:00a [facility] Internal Armando Boateng J06.9 Acute upper Medicine - César SCHOOL PSYCHOLOGIST respiratory Rd infection, unspecified R05 Cough J09.x2 Flu due to ident novel influenza A virus w oth resp manifest Office Visit 04/13/2016 11:10a [facility] Internal Chilo Castrejon J11.1 Flu due to Medicine - César Roberto M.D.,FACP unidentified Rd influenza virus w oth resp manifest Office Visit 04/04/2016 2:00p [facility] Internal Cezar Nevarez R03.0 Elevated Magda Giraldo M.D. blood-pressure [place] reading, w/o diagnosis of htn Office Visit 02/24/2016 4:20p [facility] Internal Cezar Nevarez R03.0 Elevated Magda Giraldo M.D. 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 unspecified [place] Office Visit 04/08/2015 11:40a [facility] Internal Cezar Nevarez R51 Headache Ambreen King F41.9 Anxiety disorder, unspecified Office Visit 10/22/2014 1:00p [facility] Internal Cezar Nevarez 724.2 Lumbago Ambreen King Office Visit 09/10/2014 10:40a [facility] Internal Cezar Nevarez 720.0 Spondylitis Magda Giraldo M.D. Ankylosing Andrzej 600.20 Benign Localized Hyperplasia Prostate W/O Urinary Obstruct 300.00 Anxiety State Unspec 477.9 Rhinitis Allergic Cause Unspec V77.1 Screening Diabetes Mellitus V77.91 Screening For Lipoid Disorders Plan of Treatment 04/06/2018 - Marge Montes MDL02.11 Cutaneous abscess of neckReferral:Tesfaye Santana MD, Surgery,General
[2018-04-11 12:22] LABS: ABS Basophils 0 10^3/ul (0-0.2); ABS Eosinophils 0 10^3/ul (0-0.6); ABS Lymphocytes 0.7 10^3/ul (1.0-4.8); ABS Monocytes 0.4 10^3/ul (0-0.8); ABS Neutrophils 7.8 10^3/ul (1.5-7.7); ABS Nucleated RBC 0 10^3/ul; Eosinophil % 0.5 %; Hematocrit 43 % (42-52); Hemoglobin 14.8 g/dl (14.0-18.0); Mean Corpuscular HGB Conc 34 g/dl (31-36); Mean Corpuscular Hemoglobin 31 pg (27-31); Mean Corpuscular Volume 90 fL (80-94); Mean Platelet Volume 8.1 fL (7.4-10.4); Nucleated Red Blood Cells % 0.1; Platelet Count 280 10^3/ul (150-450); Red Blood Count 4.81 10^6/ul (4.00-5.40); Red Cell Distribution Width 13 % (10.5-15)
[2018-04-11 12:33] LABS: Albumin 4.1 g/dL (3.2-5.2); Albumin/Globulin Ratio 1.3 (1-3); BUN/Creatinine Ratio 7.4 (8-20); Calcium 9.8 mg/dL (8.6-10.3); EGFR African American 69.2 (>60); EGFR Non-African American 57.2 (>60); Globulin 3.2 g/dL (2-4); Potassium 4.3 mmol/L (3.5-5.0); Total Bilirubin 0.7 mg/dL (0.2-1.0); Total Protein 7.3 g/dL (6.4-8.9)
[2018-04-11 12:38] LABS: Troponin I 0.17 ng/mL (<0.04)
[2018-04-11] MEDS ORDERED: Nitroglycerin TAB 0.3 MG* 0.3 MG TAB SL PRN (13:06)
[2018-04-11] MEDS ORDERED: Morphine VIAL* 4 MG/ML VIAL (1 ml vial) IV ONE (13:07)
[2018-04-11] MEDS ORDERED: Heparin DRIP 25,000 UNITS(*) 25,000 UNITS/500 ML BAG IV SCH (13:15)
[2018-04-11] MEDS ORDERED: Heparin VIAL(*) 5000 UNITS/ML VIAL (FIVE THOUSAND) SUBCUT PRN ×2 (13:32→13:41)
[2018-04-11] MEDS ORDERED: Nitroglycerin TAB 0.4 MG* 0.4 MG TAB SL ONE (13:49)
[2018-04-11] MEDS: NS 0.9% 1000 ML** 2,000 ML IV ONE ×2 (14:18→14:19)
[2018-04-11] MEDS ORDERED: Iodixanol* (CONTRAST) 320 MG/ML 100 ML SDV IV ONE ×2 (14:51→15:12)
[2018-04-11] MEDS ORDERED: Perflutren Lipid Microsphere* 3 ML VIAL ONE (14:54)
[2018-04-11] MEDS ORDERED: Piperacillin/Tazobac ADVAN(*) 3.375 GM in NS 0.9% 100 ML* 100 ML IVPB ONE (15:06)
--- NOTE | 2018-04-11 16:20 | ECHO ---
Patient: YISEL ELIZALDE [facility] Rec#: [id number] : 1970 Date: 04/11/2018 Age: 47y Height: 170 cm / 66.9 in Weight: 121 kg / 266.7 lbs Sex: M BSA: 2.28 Room#: [facility] Admit Date#: 04/11/2018 Type: Inpatient Referring: Evan Pop MD Reading: Augusta Antonio MD Cream Buyer: Angie Lind RDCS CC: Cezar Giraldo MD Transthoracic Echocardiogram Indication: Chest pain BP: 92/48 HR: 87 Rhythm: NSR Findings History: Angina, HTN. Technical Comments: The study is technically difficult. The study is technically limited due to patient body habitus. Completed at 1550. Left Ventricle: The left ventricular chamber size is normal. Mild concentric left ventricular hypertrophy is observed. There is normal left ventricular systolic function. The estimated ejection fraction is 55-60%. There is no consistent Doppler evidence of clinically significant diastolic dysfunction. Left Atrium: The left atrium is mildly dilated. Right Ventricle: Moderator Band present. The right ventricle is moderately dilated. The right ventricular global systolic function is mildly reduced. Right Atrium: The right atrium is moderately dilated. Aortic Valve: The aortic valve is trileaflet. There is no evidence of aortic valve thickening. There is no evidence of aortic regurgitation. There is no evidence of aortic stenosis. Mitral Valve: The mitral valve leaflets are mildly thickened. There is a trace of mitral regurgitation. There is no evidence of mitral stenosis. Tricuspid Valve: The tricuspid valve leaflets are normal. There is trace to mild tricuspid regurgitation. Unable to estimate the right ventricular systolic pressure. There is no tricuspid stenosis. Pulmonic Valve: The pulmonic valve structure is not well visualized. There is a trace pulmonic regurgitation. There is no pulmonic stenosis. Pericardium: There is no significant pericardial effusion. A pericardial fat pad is visualized. Aorta: There is no dilatation of the ascending aorta. There is no dilatation of the aortic arch. The aortic root is normal in size. Pulmonary Artery: The main pulmonary artery is not well visualized. Venous: The inferior vena cava is dilated. There is a greater than 50% respiratory change in the inferior vena cava dimension. Contrast: Definity was used to optimize study. 3.5 mL of diluted Definity were utilized. Intravenous contrast was used to enhance endocardial border definition. Conclusions The left ventricular chamber size is normal. Mild concentric left ventricular hypertrophy is observed. There is normal left ventricular systolic function. The estimated ejection fraction is 55-60%. The right ventricle is moderately dilated. The right ventricular global systolic function is mildly reduced. All valves show good function, appear structurally normal. There is a trace of mitral regurgitation. There is trace to mild tricuspid regurgitation. Compared with prior echo of 08/05/06, RV changes new, trace valve leaks new. Measurements Name Value Normal Range RVIDd (AP) 2D 3.3 cm (0.9 - 2.6) RVDdMajor (2D) 5.1 cm (2.2 - 4.4) RAd ISD 4CH 5.6 cm (3.4 - 4.9) RA (A4C)W 4.6 cm (2.9 - 4.6) IVSd (2D) 1.1 cm (0.6 - 1) LVPWd (2D) 1.1 cm (0.6 - 1) LVIDd (2D) 4.4 cm (3.6 - 5.4) LVIDs (2D) 3.4 cm - LV FS (2D) 22 % (25 - 45) Aortic Annulus 2 cm (1.4 - 2.6) Ao root diameter (2D) 2.9 cm (2.1 - 3.5) Ascending Ao 2.6 cm (2.1 - 3.4) Aortic arch 2.2 cm (1.8 - 3.4) LA dimension (AP) 2D 4.2 cm (2.3 - 3.8) LAd ISD 4CH 5.6 cm (2.9 - 5.3) LA ISD 4CH W 5 cm (2.5 - 4.5) Name Value Normal Range LA ESV BP (A/L) index 31 ml/m2 - Name Value Normal Range MV E-wave Vmax 0.53 m/sec - MV deceleration time 342 msec - MV A-wave Vmax 0.45 m/sec - MV E:A ratio 1.2 ratio - LV septal e' Vmax 0.07 m/sec - LV lateral e' Vmax 0.1 m/sec - LV E:e' septal ratio 7.1 ratio - LV E:e' lateral ratio 5 ratio - Name Value Normal Range AV Vmax 1.4 m/sec - AV VTI 23 cm - AV peak gradient 7 mmHg - AV mean gradient 4 mmHg - LVOT Vmax 0.9 m/sec - LVOT VTI 16 cm - LVOT peak gradient 3 mmHg - LVOT mean gradient 2 mmHg - JARAD Vmax 1.3 m/sec - Name Value Normal Range IVC diameter 2.2 cm - Name Value Normal Range PV Vmax 1 m/sec - PV peak gradient 4 mmHg -
[2018-04-11] MEDS ORDERED: NS 0.9% IV ONE (17:08)
[2018-04-11] MEDS ORDERED: Ondansetron INJ* 2 MG/ML VIAL IV PRN (18:27)
[2018-04-11] MEDS ORDERED: Nystatin TOP POWDER* 15 GM BTL TOPICAL PRN (18:39)
[2018-04-11 18:52] LABS: Influenza A Molecular NEGATIVE (Negative); Influenza B Molecular NEGATIVE (Negative)
[2018-04-11 19:35] LABS: TSH (Thyroid Stimulating Horm) 1.48 mcIU/mL (0.34-5.60)
[2018-04-11] MEDS ORDERED: Vancomycin per Pharmacy* NOTE FOLLOW UP PRN (19:49)
[2018-04-11] MEDS ORDERED: Vancomycin(*) 1,500 MG in NS 0.9% 250 ML* 250 ML IVPB ONE (20:00)
[2018-04-11] MEDS: NS 0.9% 1000 ML** 1,000 ML IV SCH (20:13)
--- NOTE | 2018-04-11 20:13 | HP ---
DICTATION ENDS ABRUPTLY CC: Dr. Giraldo.* HISTORY AND PHYSICAL: DATE OF ADMISSION: 04/11/18 PRIMARY CARE PROVIDER: Dr. Giraldo. MY ATTENDING WHILE IN THE HOSPITAL: Dr. Venancio Alonso.* (DICTATED BY NIC BRITT) CHIEF COMPLAINT: Chest pain x1 day. HISTORY OF PRESENT ILLNESS: Mr. Jovel is a 47-year-old male with past medical history significant for ankylosing spondylitis, chronic prostatitis, and recent diagnosis of infected cyst on the left side of his neck who DICTATION ENDS ABRUPTLY NIC BRITT [id number]/CPS #: [id number] MTDD
[2018-04-11] MEDS: HYDROcodone/ACETAMIN 5-325 MG* 1 TAB PO PRN (20:27)
[2018-04-11] MEDS: Heparin VIAL(*) 5000 UNITS/ML VIAL (FIVE THOUSAND) SUBCUT SCH (21:38)
[2018-04-11] MEDS: Cefepime 1 GM in Dextrose(*) 1 GM/50 ML BAG IV SCH (21:39)
--- NOTE | 2018-04-11 22:51 | HP ---
CC: Dr. Cezar Giraldo * ADMISSION HISTORY AND PHYSICAL: DATE OF ADMISSION: 04/11/18 PRIMARY CARE PROVIDER: Dr. Cezar Giraldo MY ATTENDING WHILE IN THE HOSPITAL: Dr. Venancio Alonso.* (DICTATED BY NIC BRITT) CHIEF COMPLAINT: Chest pain x1 day. HISTORY OF PRESENT ILLNESS: Mr. oJvel is a 47-year-old male with a past medical history significant for ankylosing spondylitis, chronic prostatitis, depression who presents to the emergency department with one day of chest pain after being referred in from his primary care provider with an episode of bradycardia and hypotension while in the hospital in association with his chest pain. The patient was previously evaluated for a similar chest pain in 2006 with a negative nuclear medicine stress test. The patient's chest pain improved slightly with nitroglycerin, but then his blood pressure dropped again, but responded to fluids. The patient's chest pain went away. In the emergency department, the patient has been having issues with an infected sebaceous cyst on the left side of his neck for 2 weeks now having come to the emergency department 3 times, having first been placed on Keflex and then having incision and drainage and being started on Bactrim. The patient over the last 2 days had been having a significant decreased appetite, night sweat, cough and some shortness of breath. The patient's chest pain was worse with breathing and still during evaluation he feels like he cannot take a deep breath. The patient 's chest pain was non-positional, not associated with diaphoresis or shortness of breath. The patient has been having in the last 6 months weight loss, but then weight gain as well as a significant increase in his fatigue though he attributes this to his lifestyle and feels like he is very stressed. The patient also during the episodes was having significant amount of tingling throughout his body which he has never had before, but is now resolved. The patient also has been having incidentally a feeling of what he describes arrhythmia in his chest, which is also associated with a sensation of a desire to masturbate. The patient has been seen by several urology specialists and was put on testosterone injections for this and his low energy. The patient has been having intermittent sensation with nausea and has slight abdominal tenderness, which he states is normal for him and has also been having pain in his pelvis, which he states is chronic for him related to his pancreatitis, that he has previously had pelvic floor physical therapy for it, but it has been an intermittent issue for him. It is just worse now. The patient in the emergency department had an elevated lactic acid and elevated troponin at 0.17 and then 0.09. The patient had echo, which showed no wall motion abnormalities and evidence of slight right-sided volume or pressure overload. Due to concern for elevated troponin, chest pain, and hypotension we were asked to evaluate the patient for admission to the hospital. PAST MEDICAL HISTORY: 1. Ankylosing spondylitis 2. Depression. 3. Chronic prostatitis. 4. Chronic pelvic pain syndrome. 5. Infected sebaceous cyst on the left side of the neck. PAST SURGICAL HISTORY: None. MEDICATIONS: 1. Oxybutynin 10 mg p.o. daily. 2. Testosterone 100 mcg IM twice a month. 3. Tamsulosin 0.4 mg p.o. daily. 4. Lexapro 20 mg p.o. daily. 5. BuSpar 5 mg p.o. daily. 6. Amitriptyline 25 mg p.o. daily. 7. Nystatin 1 application topical b.i.d. 8. Naproxen 220 mg p.o. b.i.d. as needed. 9. Mylanta 20 mg p.o. q.4 hours as needed. 10. [place] 5/325 q. 6 hours as needed. 11. Bactrim 1 tab p.o. b.i.d. ALLERGIES: Seasonal. FAMILY HISTORY: The patient's father is alive, has a history of DVT and arthritis. The patient's mother has a history of rheumatoid arthritis and herpes zoster ophthalmicus. The patient has a brother who has WPW. SOCIAL HISTORY: The patient has never smoked. The patient drinks alcohol rarely, denies illicit drug use. 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 The patient has never been , never had any children. The patient's surrogate decision maker will be his parents, Yandel and Paula Jovel. REVIEW OF SYSTEMS: A 14-point review of systems was reviewed and is negative except as above in the HPI. PHYSICAL EXAMINATION GENERAL: The patient is a 47-year-old male who appears stated age, sitting comfortably in bed, in no acute distress. HEENT: Head: Normocephalic, atraumatic. Sclerae anicteric. No conjunctival injection. Nasal mucosa moist. Oral mucosa moist. No pharyngeal erythema, discharge, or exudate. NECK: Supple. A large area of induration with chronic erythema on the right side of the neck with large preauricular lymphadenopathy on the right side of the face. No JVD. No carotid bruits auscultated. RESPIRATORY: Clear to auscultation bilaterally. No wheezes, rales, or rhonchi. Good air exchange bilaterally. CARDIAC: Regular rate and rhythm. No clicks, murmurs, gallops, or rubs. Pulses are 2+ in the bilateral dorsalis pedis, posterior tibialis, and radial areas. ABDOMEN: Soft, nontender, nondistended. Bowel sounds present and normoactive in all 4 quadrants. No hepatosplenomegaly. No abdominal bruits auscultated. No hepatojugular reflux. GENITOURINARY: No suprapubic or CVA tenderness. NEURO: Cranial nerves II through XII intact. No focal deficits. Diffusely weak. PSYCHIATRIC: Pleasant and cooperative. SKIN: Clean, dry, and intact. No rash. DIAGNOSTIC STUDIES/LABORATORY DATA: White blood cell count 9.0; hemoglobin 14.8; platelet count 280; aPTT 27.4, D-dimer negative less than 200. Sodium 135 , potassium 4.3, chloride 102, carbon dioxide 23, anion gap 10, BUN 10, creatinine 1.35, glucose 148, lactic acid 3.4, repeat 1.0, calcium 9.8. Total bilirubin 0.7, AST 16, ALT 16, alkaline phosphatase 53. Troponin I 0.17, repeat 0.09, CRP is 31.47. Protein 7.3, albumin 4.1 and globulin 3.2. Studies: Transthoracic echocardiogram, left ventricle chamber size is normal. Left ventricular hypertrophy is observed. There is normal left ventricular systolic function, estimated ejection fraction 55-60%. Right ventricle is moderately dilated. Global right ventricular systolic function is mildly reduced. All valves show good function, appear essentially normal. There is trace mitral regurgitation. There is trace to mild tricuspid regurgitation. Compared to prior echo of 08/04/06 heart rate changes are new, trace valve leak is new. Chest x-ray read as no active cardiopulmonary disease. Electrocardiogram shows normal sinus rhythm, slight ST elevation in V3, early repolarization in V1, V2. Normal axis, T- wave inversions in aVF. No other significant abnormalities. Repeat EKG shows no significant changes. Compared to previous EKG, there are no significant changes. Neck CT from 04/11/18 read as there is a 1.7 cm loculated fluid collection with subcutaneous soft tissue on the left posterior lateral neck consistent with history of abscess. There is a small amount of gas density centrally consistent with a history of recent incision and drainage, but it is not to the deep subcutaneous fascia. Chest CT read as 1 cm nodule in the right lower lobe, and not clearly seen on the previous CT examination of 08/04/06. Recommend consideration for evaluation PET/CT short term interval followup and/or tissue sampling. ASSESSMENT AND PLAN: Impression: Mr. Jovel is a 47-year-old male with a past medical history significant for ankylosing spondylitis, chronic prostatitis and chronic pelvic pain with 2 weeks of infected cyst on the left side of his neck status post incision and drainage and antibiotics over the past 2 days had significantly decrease in appetite with cough and night sweats who presents to the emergency department with chest pain, hypotension, bradycardia at his primary care doctor's office as well as an elevated troponin. The patient was admitted to the hospital for evaluation of chest pain and hypotension. 1. Hypotension. The patient's hypotension is of unclear etiology. The patient 's initial hypotension occurred with bradycardia in his primary care doctor's office. The patient has had previous chest pain like this which was evaluated by a nuclear medicine stress test, which was normal. This was 12 years ago. The patient had an elevated troponin; however, Dr. Augusta Antonio of Cardiology was consulted in the emergency department and did not believe that this was related to cardiac chest pain. Repeat evaluation by Cardiology after the patient's clinical picture becomes more clear could be requested. The patient' s troponin trended down immediately and a repeat troponin is pending. The patient is given aspirin. The patient will continue on aspirin daily. The patient has associated symptoms consistent with possible viral infection, elevated troponin and cardiac chest pain could represent a mild pericarditis though he has no evidence of this on his echocardiogram. Influenza A and B testing are pending at this time. The patient had bradycardia while in the primary care doctor's office. The patient has no signs of acute myocardial infarction given the timing it is unlikely that his troponin will be trending down upon arrival to the emergency department if acute coronary syndrome was the cause of his bradycardia. The patient was given a fluid bolus of 3600 mL while in the emergency department and he is now normotensive. Orthostatic vital signs will be obtained and a cortisol level will be obtained in the morning. TSH is pending. The patient will be on broad spectrum antibiotics of Cefepime and vancomycin. The patient will also have a CT scan of his chest because though the patient had negative D-dimer, his symptoms of pleuritic chest pain, mild pulmonary hypertension and a mild elevation in his troponin are all consistent with a pulmonary embolism, which is not entirely ruled out by a negative D-dimer. Further evaluation pending results of the above mentioned testing. Given the patient's lymphadenopathy on CT scan plus pulmonary hypertension and bradycardia also raises the possibility of sarcoidosis. An ARMAND level will be sent. 2. Abscess. The patient's abscess does not extend into the deep fascia in his neck. The patient does have significant lymphadenopathy. The patient's previous study did not grow out any bacteria; however, the patient was already on antibiotics at that time. We will continue with broad-spectrum antibiotic coverage and close monitoring. This is not likely the cause of the patient's hypotension. The patient has no other signs of sepsis related to this. 3. Depression and anxiety. Continue patient's amitriptyline and Lexapro as well as BuSpar. The patient should follow up with outpatient Psychiatry as he does appear somewhat depressed. 4. Ankylosing spondylitis. The patient has been on treatment for this since 2009. We will order lower spine x-rays to assess for disease progression though MRI is not likely necessary at this time. 5. Chronic prostatitis, chronic pain syndrome. The patient has abnormal symptoms consistent with this that he relates to his chest pain. There is not a clear cause for this. If this continues to happen inpatient or outpatient, urologic followup should be obtained. 7. FEN: The patient will have heart healthy diet without caffeine and have fluids 100 mL an hour. 8. DVT prophylaxis: The patient will have heparin subcu. The patient has moderate risk. TIME SPENT: Approximately 75 minutes was spent on the admission of this patient , 45 of which was spent [id number] with the patient obtaining history and physical and discussing treatment plan. Plan was discussed with my attending, Dr. Venancio Alonso, and he is in agreement. NIC BRITT [id number]/[facility] #: [id number] [place]
[2018-04-12] MEDS: Acetaminophen TAB* 325 MG PO PRN (01:09)
[2018-04-12] MEDS: Vancomycin(*) 1,000 MG in NS 0.9% 250 ML* 250 ML IVPB SCH ×3 (03:06→19:20)
--- NOTE | 2018-04-12 05:20 | CONS ---
CC: Hospitalist; Dr. Giraldo * CARDIOLOGY CONSULTATION: DATE OF CONSULT: 04/11/18 REASON FOR CONSULTATION: Elevated troponins, left-sided pain, and hypotension. CHIEF COMPLAINT: Left-sided neck and chest pain. HISTORY OF PRESENT ILLNESS: Kishan Jovel is a 47-year-old patient who, earlier this month, developed an abscess in the left neck. In reading office notes of Dr. Lin and Dr. Montes, it sounds like it may have been an infected sebaceous cyst. The first note is dated 04/02/18, it notes he felt out of it. He was referred for incision and drainage to the ED. The pain was very severe that day. On return visit on 04/06/18, the pain was so severe they could not change the packing. When he first presented, he had had chills and fever (04/02). On 04/06/18, they documented that he looked uncomfortable and the abscess of the left neck was draining serosanguineous fluid. Today, the patient was to see Surgery for consultation and actually went to the office. At the surgeon's office, he acutely developed 7/10 left-sided chest pain. He also described diffuse myalgias and arthralgias that awoke him from sleep about 3 AM. The patient was present with his father. Additional symptoms included headache and tingling sensation left, confusion as well as fever, shortness of breath, diaphoresis, and lightheadedness with near syncopal feeling. His blood pressure at the office was low at 82/60. He was referred to the emergency room. In the emergency room, the patient again dropped his blood pressure and was treated with Trendelenburg and intravenous fluid. At the time I saw him, the patient was in Trendelenburg getting an echocardiogram with a systolic blood pressure of 98. The patient was present with his father. He again described acute myalgias and arthralgias. The pain he had in the provider's office had improved and is generally feeling poorly and continued to have left neck pain. PAST MEDICAL HISTORY: 1. Recent left-sided neck abscess as above. 2. Obstructive sleep apnea. 3. Ankylosing spondylitis. 4. Benign prostatic hypertrophy. 5. Allergic rhinitis. 6. Hypertension. 7. Seasonal allergies. 8. Low testosterone. MEDICATIONS: Outpatient medications included: 1. Oxybutynin chloride ER 10 mg daily. 2. Testosterone. 3. Amitriptyline 75 mg a day. 4. Nystatin b.i.d. p.r.n. 5. Tamsulosin 0.4 mg a day. 6. Lexapro 20 mg a day. 7. Tylenol with codeine p.r.n. 8. Bactrim DS 1 tablet p.o. b.i.d. for abscess. 9. Mylanta p.r.n. 10. BuSpar 5 mg a day. ALLERGIES: No known drug allergies. FAMILY HISTORY: Significant that his mother has rheumatoid arthritis. Both parents have hypertension. SOCIAL HISTORY: The patient lives with his parents. 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 Nonsmoker ever. No history of recreational drug use. REVIEW OF SYSTEMS: Positive for recent presentation with fevers, chills, and significant pain and abscess in the left neck that has been present over 10 days. He has been dizzy from anorexia and left neck pain has limited his ability to work, turn his neck, prior to the acute onset of severe pain in the physician's office. PHYSICAL EXAMINATION: On exam, the patient is 5 feet 7 inches, 271 pounds with a BMI of 42.4. Vitals: When I saw him in the emergency room, blood pressure dropped again to 66/31 and had just recovered to 81/41, pulse 72, oxygen saturation is 98% on room air, temperature is 98.0 on arrival to the emergency room. The patient was in Trendelenburg position with these vitals. General Appearance: Tall, overweight, middle-aged gentleman, lying in Trendelenburg, appearing uncomfortable. Psychologically, cooperative, answers questions appropriately. Neurologically, vague, a bit slow to answer, but awake, alert, oriented to person, place. Skin: Lukewarm to cool, dry, without appreciable cyanosis of the lips or nail beds. HEENT: Neck without appreciable thyromegaly , abcess not completely examined, 2 cm diameter lesion mounded, errythemetous above the clavicle, lateral portion of the neck. No gross lymphadenopathy. Breath sounds were clear with fair effort. No wheezes, rales, or rhonchi. Coronary: S1, S2 regular without rubs or murmurs, distant, obese. Abdomen: Overweight. Active bowel sounds. Soft, nontender. Lower extremities: thick from obesity, but no edema. DIAGNOSTIC STUDIES/LAB DATA: The patient's echocardiogram did not show any pericardial effusion. No left ventricular wall motion abnormality noted. The valve function, the right ventricle was mildly enlarged and mildly hypokinetic. Labs: White count 9, hemoglobin 14.8, hematocrit 43, platelets 240. Sodium 135 , potassium 4.3, chloride 102, bicarb 23, glucose 148, BUN 10, creatinine 1.35. Lactic acid 3.4. Normal transaminases. Troponin #1 0.17, troponin #2 0.09. TSH 1.48. C-reactive protein I ordered was 31.47. Influenza A and B were negative. Chest x-ray showed no acute cardiopulmonary disease. CT scan of the neck and chest showed the abscess with air fluid levels consistent with recent aspiration. The abscess is measuring 1.5 x 1.4 x 1.2 cm in size and superficial to the deep fascia, mild stranding with adjacent fat, no deep extension. There is mild lymphadenopathy noted. EKG on arrival to the emergency room at 1148 this morning showed normal sinus rhythm ST/T waves unremarkable and nonspecific flattening inferolaterally, no old EKG to compare. EKG at 1313, not significantly changed. Labs from 2017, total cholesterol 189, triglycerides 311, LDL cholesterol 93 and HDL cholesterol 34. ASSESSMENT AND PLAN: In summary, Kishan Jovel is a 47-year-old male who's had over 10 days an abscess in the left neck, which has been extremely painful. It sounds like it has been refractory to I+D and antibiotics, who developed severe chest pain while in the surgeon's office today to get evaluated and this is associated with significant hypotension. The hypotension recurred in the emergency room just before I saw him. His echocardiogram does not suggest pericardial effusion or acute ischemic process. With his chest pain, I think this is mostly likely related to his infection, although I cannot rule out a possible cardiovascular spasm component, though I think it is most likely type 2/demand ischemia as the patient's EKG and echo on the left side are unremarkable. The patient's hypotension could account for the bump in troponins. Additional differential would include a pulmonary embolus as the right side of the heart was hypokinetic. On looking at the CT scans which did have contrast there was no obvious pulmonary embolism and D-dimer was negative making this unlikely. It is also possible the right-sided hypokinesis is related to his sleep apnea. I am suspicious that the patient on presentation is infectious and there may be a vagal component as well, and the imaging appears reassuring that no deep abscess formation is found. White count also appears reassuring, but I added C-reactive protein and sed rate. An elevated CRP is noted consistent with an inflammatory or infectious process. In the short-term, I would treat for infection. On a supportive care for his hypotension with intravenous fluid, I would remove medications that would lead to further drop in blood pressure or recurrent drop in blood pressure, which would include his tamsulosin and from my standpoint, his amitriptyline could be held acutely. For the elevated troponins and chest pain, I would follow the troponin and EKG serially and when he is no longer acutely ill, I would consider an exercise stress test unless his troponins bump further. Cardiology will follow distantly. I am interested to see the results of blood cultures and clinical course. ADDENDUM: additional ED workup included CT scans chest and neck, no evidence of deep infection, PE or other significant findings. Additional thoughts would include adrenal insufficiency contributing to hypotension. Could toxic shock occur in this setting? His presentation appears out of proportion to the neck abcess. CAROL ANN [id number]/[facility] #: [id number] [place]
[2018-04-12] MEDS: Heparin VIAL(*) 5000 UNITS/ML VIAL (FIVE THOUSAND) SUBCUT SCH ×3 (05:58→21:17)
[2018-04-12] MEDS: Cefepime 1 GM in Dextrose(*) 1 GM/50 ML BAG IV SCH ×2 (08:25→21:16)
[2018-04-12] MEDS: HYDROcodone/ACETAMIN 5-325 MG* 1 TAB PO PRN ×2 (08:31→19:21)
[2018-04-12] MEDS: Oxybutynin TAB* 5 MG PO SCH (08:32)
[2018-04-12] MEDS: busPIRone TAB* 5 MG PO SCH (08:32)
[2018-04-12] MEDS: Aspirin EC TAB* 81 MG TAB.EC PO SCH (08:33)
[2018-04-12] MEDS: Citalopram TAB* 40 MG PO SCH (08:33)
[2018-04-12] MEDS: Amitriptyline TAB* 25 MG PO SCH (08:33)
[2018-04-12] MEDS ORDERED: Tamsulosin CAP* 0.4 MG PO SCH (09:00)
--- NOTE | 2018-04-12 10:16 | PN ---
Subjective Date of Service: 04/12/18 Interval History: Febrile overnight to 102.5. Objective Active Medications: Acetaminophen (Tylenol Tab*) 650 mg PO Q6H PRN PRN Reason: FEVER/PAIN Last Admin: 04/12/18 01:09 Dose: 650 mg Hydrocodone Bitart/Acetaminophen ([place] 5-325 Tab*) 1 tab PO Q6H PRN PRN Reason: PAIN Last Admin: 04/12/18 08:31 Dose: 1 tab Amitriptyline HCl (Elavil Tab*) 75 mg PO DAILY [facility] Last Admin: 04/12/18 08:33 Dose: 75 mg Aspirin (Aspirin Ec Tab*) 81 mg PO DAILY [facility] Last Admin: 04/12/18 08:33 Dose: 81 mg Buspirone HCl (Buspar Tab*) 5 mg PO DAILY [facility] Last Admin: 04/12/18 08:32 Dose: 5 mg Citalopram Hydrobromide (Celexa Tab*) 40 mg PO DAILY [facility] Last Admin: 04/12/18 08:33 Dose: 40 mg Heparin Sodium (Porcine) (Heparin Vial(*)) 5,000 units SUBCUT Q8HR [facility] Last Admin: 04/12/18 05:58 Dose: 5,000 units Cefepime HCl (Maxipime 1 Gm In Dextrose Duplex (*)) 1 gm in 50 mls @ 100 mls/ hr IV Q12H [facility] Last Admin: 04/12/18 08:25 Dose: 100 mls/hr Vancomycin HCl 1,000 mg/ (Sodium Chloride) 250 mls @ 166.667 mls/hr IVPB 0200, 1000,1800 [facility]; Protocol Last Admin: 04/12/18 03:06 Dose: 166.667 mls/hr Sodium Chloride (Ns 0.9% 1000 Ml) 1,000 mls @ 100 mls/hr IV PER RATE [facility] Last Admin: 04/11/18 20:13 Dose: 100 mls/hr Nystatin (Nystatin Top Powder*) 1 applic TOPICAL BID PRN PRN Reason: RASH Ondansetron HCl (Zofran Inj*) 4 mg IV Q6H PRN PRN Reason: NAUSEA Last Admin: 04/11/18 20:28 Dose: 4 mg Oxybutynin Chloride (Ditropan Tab*) 10 mg PO DAILY [facility] Last Admin: 04/12/18 08:32 Dose: 10 mg Pharmacy Consult (Vancomycin Per Pharmacy*) 1 note FOLLOW UP . PRN PRN Reason: PER PROTOCOL Pharmacy Profile Note (Vancomycin Trough Check) 1 note FOLLOW UP 1800 ONE Stop: 04/12/18 18:01 Vital Signs - 8 hr 04/12/18 04/12/18 04/12/18 03:24 07:46 07:57 Temperature 99.1 F 99.5 F Pulse Rate 115 107 107 Respiratory 18 20 Rate Blood Pressure 121/63 132/74 132/74 (mmHg) O2 Sat by Pulse 92 93 Oximetry 04/12/18 04/12/18 07:58 08:31 Temperature Pulse Rate 117 Respiratory 18 Rate Blood Pressure 112/76 (mmHg) O2 Sat by Pulse Oximetry Oxygen Devices in Use Now: None Result Diagrams: 04/11/18 11:55 04/11/18 11:55 Microbiology and Other Data: Microbiology 04/11/18 18:25 Influenza Types A,B Antigen - Final Nasal Specimen received for Influenza A/B Molecular testing Assess/Plan/Problems-Billing Assessment: This is a 47 year old man with history of a recent neck abscess that has been I& D'ed by surgery who presented to the ED yesterday with chest pain and chills and was found to have hypotension, fever, and elevated troponin - Patient Problems (1) Elevated troponin Current Visit: Yes Status: Acute Code(s): R74.8 - ABNORMAL LEVELS OF OTHER SERUM ENZYMES SNOMED Code(s): 854999748 (2) Abscess Current Visit: Yes Status: Acute Code(s): L02.91 - CUTANEOUS ABSCESS, UNSPECIFIED SNOMED Code(s): 936702194 (3) Sepsis Current Visit: Yes Status: Acute (4) Lung nodule Current Visit: Yes Status: Acute Code(s): R91.1 - SOLITARY PULMONARY NODULE SNOMED Code(s): 421361715 Comment: 1cm RLL needs to be followed with repeat imaging as outpatient (5) NIKITA (acute kidney injury) Current Visit: Yes Status: Acute Code(s): N17.9 - ACUTE KIDNEY FAILURE, UNSPECIFIED SNOMED Code(s): 30237987 Comment: suspect prerenal in setting of sepsis continuing IVF resuscitation repeat BMP pending (6) Ankylosing spondylitis Current Visit: Yes Status: Acute Code(s): M45.9 - ANKYLOSING SPONDYLITIS OF UNSPECIFIED SITES IN SPINE SNOMED Code(s): 3974078
[2018-04-12 10:19] LABS: ABS Basophils 0 10^3/ul (0-0.2); ABS Eosinophils 0 10^3/ul (0-0.6); ABS Lymphocytes 0.6 10^3/ul (1.0-4.8); ABS Monocytes 0.4 10^3/ul (0-0.8); ABS Neutrophils 7.2 10^3/ul (1.5-7.7); ABS Nucleated RBC 0 10^3/ul; Eosinophil % 0.1 %; Hematocrit 36 % (42-52); Hemoglobin 12.5 g/dl (14.0-18.0); Lymphocyte % 7.4 %; Mean Corpuscular HGB Conc 34 g/dl (31-36); Mean Corpuscular Hemoglobin 31 pg (27-31); Mean Corpuscular Volume 91 fL (80-94); Mean Platelet Volume 7.9 fL (7.4-10.4); Nucleated Red Blood Cells % 0; Platelet Count 195 10^3/ul (150-450); Red Cell Distribution Width 13 % (10.5-15); White Blood Count 8.3 10^3/ul (3.5-10.8)
[2018-04-12 10:34] LABS: BUN/Creatinine Ratio 9.4 (8-20); C Reactive Protein 96.91 mg/L (<8.01); Calcium 8.2 mg/dL (8.6-10.3); EGFR African American 102.5 (>60); EGFR Non-African American 84.7 (>60)
[2018-04-12 10:36] LABS: Troponin I 0.01 ng/mL (<0.04)
[2018-04-12] MEDS ORDERED: Iodixanol* (CONTRAST) 320 MG/ML 100 ML SDV IV ONE (10:48)
--- NOTE | 2018-04-12 11:04 | PN ---
Subjective Date of Service: 04/12/18 Interval History: still having chest pain on the left side with movement and deep breath. Tells me this is the same chest pain that he has had for many years, and it happens 4- 5 times per day and is associated with sexual arousal. Says this is no different than usual. The pain in his groin is worse than usual. No urinary symptoms. he also complains of pain all over. Also a headache. Some neck stiffness but feels it is related to the abscess. No shortness of breath, cough , or orthopnea. Objective Active Medications: Acetaminophen (Tylenol Tab*) 650 mg PO Q6H PRN PRN Reason: FEVER/PAIN Last Admin: 04/12/18 01:09 Dose: 650 mg Hydrocodone Bitart/Acetaminophen ([place] 5-325 Tab*) 1 tab PO Q6H PRN PRN Reason: PAIN Last Admin: 04/12/18 08:31 Dose: 1 tab Amitriptyline HCl (Elavil Tab*) 75 mg PO DAILY [facility] Last Admin: 04/12/18 08:33 Dose: 75 mg Aspirin (Aspirin Ec Tab*) 81 mg PO DAILY [facility] Last Admin: 04/12/18 08:33 Dose: 81 mg Buspirone HCl (Buspar Tab*) 5 mg PO DAILY [facility] Last Admin: 04/12/18 08:32 Dose: 5 mg Citalopram Hydrobromide (Celexa Tab*) 40 mg PO DAILY [facility] Last Admin: 04/12/18 08:33 Dose: 40 mg Heparin Sodium (Porcine) (Heparin Vial(*)) 5,000 units SUBCUT Q8HR [facility] Last Admin: 04/12/18 05:58 Dose: 5,000 units Cefepime HCl (Maxipime 1 Gm In Dextrose Duplex (*)) 1 gm in 50 mls @ 100 mls/ hr IV Q12H [facility] Last Admin: 04/12/18 08:25 Dose: 100 mls/hr Vancomycin HCl 1,000 mg/ (Sodium Chloride) 250 mls @ 166.667 mls/hr IVPB 0200, 1000,1800 [facility]; Protocol Last Admin: 04/12/18 03:06 Dose: 166.667 mls/hr Sodium Chloride (Ns 0.9% 1000 Ml) 1,000 mls @ 100 mls/hr IV PER RATE [facility] Last Admin: 04/11/18 20:13 Dose: 100 mls/hr Nystatin (Nystatin Top Powder*) 1 applic TOPICAL BID PRN PRN Reason: RASH Ondansetron HCl (Zofran Inj*) 4 mg IV Q6H PRN PRN Reason: NAUSEA Last Admin: 04/11/18 20:28 Dose: 4 mg Oxybutynin Chloride (Ditropan Tab*) 10 mg PO DAILY [facility] Last Admin: 04/12/18 08:32 Dose: 10 mg Pharmacy Consult (Vancomycin Per Pharmacy*) 1 note FOLLOW UP . PRN PRN Reason: PER PROTOCOL Pharmacy Profile Note (Vancomycin Trough Check) 1 note FOLLOW UP 1800 ONE Stop: 04/12/18 18:01 Vital Signs - 8 hr 04/12/18 04/12/18 04/12/18 03:24 07:46 07:57 Temperature 99.1 F 99.5 F Pulse Rate 115 107 107 Respiratory 18 20 Rate Blood Pressure 121/63 132/74 132/74 (mmHg) O2 Sat by Pulse 92 93 Oximetry 04/12/18 04/12/18 07:58 08:31 Temperature Pulse Rate 117 Respiratory 18 Rate Blood Pressure 112/76 (mmHg) O2 Sat by Pulse Oximetry Oxygen Devices in Use Now: None Appearance: ill appearing, no distress Eyes: No Scleral Icterus Ears/Nose/Mouth/Throat: NL Teeth, Lips, Gums, - - no mucosal lesions. mucosa is moist. Neck: - - no JVP. left posterior neck abscess is closed, crusted, about 2cm Respiratory: Symmetrical Chest Expansion and Respiratory Effort, Clear to Auscultation Cardiovascular: - - tachycardic, no murmurs Abdominal: NL Sounds; No Tenderness; No Distention Lymphatic: No Cervical Adenopathy Extremities: No Edema Skin: - - erythematous macules scatteres over arms, legs, chest, and back Neurological: Alert and Oriented x 3, - Result Diagrams: 04/12/18 09:44 04/12/18 09:44 Microbiology and Other Data: Microbiology 04/11/18 18:25 Influenza Types A,B Antigen - Final Nasal Specimen received for Influenza A/B Molecular testing Assess/Plan/Problems-Billing Assessment: This is a 47 year old man with history of a recent neck abscess that has been I& D'ed by surgery who presented to the ED yesterday with chest pain and chills and was found to have hypotension, fever, and elevated troponin - Patient Problems (1) Elevated troponin Current Visit: Yes Status: Acute Code(s): R74.8 - ABNORMAL LEVELS OF OTHER SERUM ENZYMES SNOMED Code(s): 573067979 Comment: may be demand from sepsis, less likely ischemia, no effusion or evidence of pericarditis, CTA negative for PE Cardiology following, recommend stress test in the future (2) Abscess Current Visit: Yes Status: Acute Code(s): L02.91 - CUTANEOUS ABSCESS, UNSPECIFIED SNOMED Code(s): 422780997 Comment: CT neck shows 1.5cm without tracking I have requested an LP from anesthesia given his ongoing sepsis and proximity of the abscess to the csf (3) Sepsis Current Visit: Yes Status: Acute Comment: vanc/cefepime day 2 blood cultures sent stat this morning UA negative LP pending continue ivf (4) Lung nodule Current Visit: Yes Status: Acute Code(s): R91.1 - SOLITARY PULMONARY NODULE SNOMED Code(s): 141142329 Comment: 1cm RLL needs to be followed with repeat imaging as outpatient (5) NIKITA (acute kidney injury) Current Visit: Yes Status: Acute Code(s): N17.9 - ACUTE KIDNEY FAILURE, UNSPECIFIED SNOMED Code(s): 10201882 Comment: suspect prerenal in setting of sepsis continuing IVF resuscitation repeat BMP pending (6) Ankylosing spondylitis Current Visit: Yes Status: Acute Code(s): M45.9 - ANKYLOSING SPONDYLITIS OF UNSPECIFIED SITES IN SPINE SNOMED Code(s): 4488050
[2018-04-12] MEDS: NS 0.9% 1000 ML** 1,000 ML IV SCH (12:35)
[2018-04-12 14:39] LABS: Body Fluid Source Cerebral Spinal
[2018-04-12 14:53] LABS: CSF Glucose 92 mg/dL (40-70)
[2018-04-12 15:06] LABS: Urine Appearance Cloudy; Urine Bilirubin Negative (Negative); Urine Blood Negative (Negative); Urine Color Yellow; Urine Glucose Negative (Negative); Urine Ketones 1+ (Negative); Urine Nitrite Negative (Negative); Urine Protein Negative (Negative); Urine Specific Gravity 1.038 (1.010-1.030); Urine Urobilinogen Negative (Negative)
[2018-04-12 15:21] LABS: Barbiturates Urine Screen None Detected (None Detect); Benzodiazepine Urine Screen None Detected (None Detect); Urine Cannabinoids Screen None Detected (None Detect)
[2018-04-12] MEDS ORDERED: Vancomycin Trough Check NOTE FOLLOW UP ONE (18:00)
[2018-04-12 18:26] LABS: Body Fluid Mono 15 %; Body Fluid Other Cells 2
[2018-04-13] MEDS: Acetaminophen TAB* 325 MG PO PRN (00:52)
[2018-04-13] MEDS: HYDROcodone/ACETAMIN 5-325 MG* 1 TAB PO PRN ×2 (01:59→09:10)
[2018-04-13] MEDS: Vancomycin(*) 1,000 MG in NS 0.9% 250 ML* 250 ML IVPB SCH ×2 (02:00→12:21)
[2018-04-13] MEDS: NS 0.9% 1000 ML** 1,000 ML IV SCH ×2 (02:03→15:05)
[2018-04-13] MEDS: Heparin VIAL(*) 5000 UNITS/ML VIAL (FIVE THOUSAND) SUBCUT SCH ×3 (05:06→21:29)
[2018-04-13 06:05] LABS: ABS Basophils 0 10^3/ul (0-0.2); ABS Eosinophils 0 10^3/ul (0-0.6); ABS Lymphocytes 0.9 10^3/ul (1.0-4.8); ABS Monocytes 0.6 10^3/ul (0-0.8); ABS Neutrophils 8.9 10^3/ul (1.5-7.7); ABS Nucleated RBC 0 10^3/ul; Eosinophil % 0.1 %; Hematocrit 32 % (42-52); Hemoglobin 11.3 g/dl (14.0-18.0); Lymphocyte % 8.3 %; Mean Corpuscular HGB Conc 35 g/dl (31-36); Mean Corpuscular Hemoglobin 32 pg (27-31); Mean Corpuscular Volume 91 fL (80-94); Mean Platelet Volume 7.7 fL (7.4-10.4); Nucleated Red Blood Cells % 0.1; Platelet Count 177 10^3/ul (150-450); Red Blood Count 3.57 10^6/ul (4.00-5.40); Red Cell Distribution Width 13 % (10.5-15); White Blood Count 10.4 10^3/ul (3.5-10.8)
[2018-04-13 06:20] LABS: Calcium 8.3 mg/dL (8.6-10.3); EGFR African American 126.5 (>60); EGFR Non-African American 104.5 (>60); Magnesium 1.7 mg/dL (1.9-2.7)
[2018-04-13] MEDS: Cefepime 1 GM in Dextrose(*) 1 GM/50 ML BAG IV SCH (08:56)
[2018-04-13] MEDS: busPIRone TAB* 5 MG PO SCH (09:00)
[2018-04-13] MEDS: Citalopram TAB* 40 MG PO SCH (09:01)
[2018-04-13] MEDS: Amitriptyline TAB* 25 MG PO SCH (09:01)
[2018-04-13] MEDS: Oxybutynin TAB* 5 MG PO SCH (09:01)
[2018-04-13] MEDS: Aspirin EC TAB* 81 MG TAB.EC PO SCH (09:01)
[2018-04-13] MEDS ORDERED: Vancomycin Trough Check NOTE FOLLOW UP ONE (09:30)
[2018-04-13] MEDS ORDERED: Vancomycin(*) 1,000 MG in NS 0.9% 250 ML* 250 ML IVPB SCH (18:00)
--- NOTE | 2018-04-13 18:51 | PN ---
Subjective Date of Service: 04/13/18 Interval History: C/O headache, chest pain, abd pain, groin/prostate pain. Constipated. Ate little here. Objective Active Medications: Acetaminophen (Tylenol Tab*) 650 mg PO Q6H PRN PRN Reason: FEVER/PAIN Last Admin: 04/13/18 00:52 Dose: 650 mg Hydrocodone Bitart/Acetaminophen ([place] 5-325 Tab*) 1 tab PO Q6H PRN PRN Reason: PAIN Last Admin: 04/13/18 09:10 Dose: 1 tab Amitriptyline HCl (Elavil Tab*) 75 mg PO DAILY [facility] Last Admin: 04/13/18 09:01 Dose: 75 mg Aspirin (Aspirin Ec Tab*) 81 mg PO DAILY [facility] Last Admin: 04/13/18 09:01 Dose: 81 mg Buspirone HCl (Buspar Tab*) 5 mg PO DAILY [facility] Last Admin: 04/13/18 09:00 Dose: 5 mg Ciprofloxacin (Cipro Tab*) 500 mg PO Q12HR [facility] Citalopram Hydrobromide (Celexa Tab*) 40 mg PO DAILY [facility] Last Admin: 04/13/18 09:01 Dose: 40 mg Heparin Sodium (Porcine) (Heparin Vial(*)) 5,000 units SUBCUT Q8HR [facility] Last Admin: 04/13/18 15:05 Dose: 5,000 units Naproxen (Naprosyn Tab*) 250 mg PO Q6H PRN PRN Reason: PAIN Nystatin (Nystatin Top Powder*) 1 applic TOPICAL BID PRN PRN Reason: RASH Ondansetron HCl (Zofran Inj*) 4 mg IV Q6H PRN PRN Reason: NAUSEA Last Admin: 04/11/18 20:28 Dose: 4 mg Oxybutynin Chloride (Ditropan Tab*) 10 mg PO DAILY [facility] Last Admin: 04/13/18 09:01 Dose: 10 mg Pharmacy Profile Note (Vancomycin Trough Check) 1 note FOLLOW UP ONCE ONE Stop: 04/15/18 05:31 Polyethylene Glycol/Electrolytes (Miralax*) 17 gm PO 0800,2100 [facility] Vital Signs - 8 hr 04/13/18 04/13/18 04/13/18 11:25 13:00 15:14 Temperature 97.2 F 98.8 F Pulse Rate 78 88 Respiratory 16 16 16 Rate Blood Pressure 126/70 118/74 (mmHg) O2 Sat by Pulse 97 99 Oximetry Oxygen Devices in Use Now: None, Nasal Cannula Appearance: Alert, sitting on the edge of the bed with his eyes closed. Flat affect. ? uncomfortable. Eyes: No Scleral Icterus Neck: NL Appearance and Movements; NL JVP, No Thyroid Enlargement, Masses Respiratory: Symmetrical Chest Expansion and Respiratory Effort, Clear to Auscultation, Clear to Percussion Abdominal: NL Sounds; No Tenderness; No Distention, No Hepatosplenomegaly, - Skin: No Nodules or Sclerosis, - - L neck 3.5 cm raised area, red, central slit , no drainage. Surrounding skin nl. Neurological: Alert and Oriented x 3, NL Sensation Result Diagrams: 04/13/18 05:50 04/13/18 05:50 Microbiology and Other Data: Microbiology 04/11/18 18:25 Influenza Types A,B Antigen - Final Nasal Specimen received for Influenza A/B Molecular testing Assess/Plan/Problems-Billing Assessment: This is a 47 year old man with history of a recent neck abscess that has been I& D'ed by surgery who presented to the ED yesterday with chest pain and chills and was found to have hypotension, fever, and elevated troponin - Patient Problems (1) NIKITA (acute kidney injury) Current Visit: Yes Status: Acute Code(s): N17.9 - ACUTE KIDNEY FAILURE, UNSPECIFIED SNOMED Code(s): 71630218 Comment: suspect prerenal in setting of sepsis Resolved, stop IVF 04/13 PM. (2) Headache Current Visit: Yes Status: Acute Code(s): R51 - HEADACHE SNOMED Code(s): 77851568 Comment: Naproxen works for him at home, ordered 04/13. (3) Elevated troponin Current Visit: Yes Status: Ruled-out Code(s): R74.8 - ABNORMAL LEVELS OF OTHER SERUM ENZYMES SNOMED Code(s): 486703363 Comment: may be demand from sepsis, less likely ischemia, no effusion or evidence of pericarditis, CTA negative for PE Cardiology recommends stress test in the future. Patient states he had a stress test in 2001 and in 2006. D[address] Antonio 04/13. (4) Lung nodule Current Visit: Yes Status: Acute Code(s): R91.1 - SOLITARY PULMONARY NODULE SNOMED Code(s): 209285547 Comment: 1cm RLL needs to be followed with repeat imaging as outpatient Never smoked. ? second hand exposure.
--- NOTE | 2018-04-13 19:34 | PN ---
Subjective Date of Service: 04/13/18 - CC: sweats, pain, racing heart Interval History: The patient continues to have episodes he had at home of feeling weak, drenching sweat, racing heart (nursing confirmed drenching sweat and fever). He now has a cough that leads to acute headache and pain in the pubic area. His neck abscess is still painful, but able to move his head more than before. He is not ambulating. He had chest pain this AM similar to what brought him in, our [employer] Martine Jones documented visual muscle fasciculations Left chest with the discomfort. This has resolved. Medications Active Medications: Acetaminophen (Tylenol Tab*) 650 mg PO Q6H PRN PRN Reason: FEVER/PAIN Last Admin: 04/13/18 00:52 Dose: 650 mg Hydrocodone Bitart/Acetaminophen ([place] 5-325 Tab*) 1 tab PO Q6H PRN PRN Reason: PAIN Last Admin: 04/13/18 09:10 Dose: 1 tab Amitriptyline HCl (Elavil Tab*) 75 mg PO DAILY [facility] Last Admin: 04/13/18 09:01 Dose: 75 mg Aspirin (Aspirin Ec Tab*) 81 mg PO DAILY [facility] Last Admin: 04/13/18 09:01 Dose: 81 mg Buspirone HCl (Buspar Tab*) 5 mg PO DAILY [facility] Last Admin: 04/13/18 09:00 Dose: 5 mg Ciprofloxacin (Cipro Tab*) 500 mg PO Q12HR [facility] Citalopram Hydrobromide (Celexa Tab*) 40 mg PO DAILY [facility] Last Admin: 04/13/18 09:01 Dose: 40 mg Heparin Sodium (Porcine) (Heparin Vial(*)) 5,000 units SUBCUT Q8HR [facility] Last Admin: 04/13/18 15:05 Dose: 5,000 units Naproxen (Naprosyn Tab*) 250 mg PO Q6H PRN PRN Reason: PAIN Nystatin (Nystatin Top Powder*) 1 applic TOPICAL BID PRN PRN Reason: RASH Ondansetron HCl (Zofran Inj*) 4 mg IV Q6H PRN PRN Reason: NAUSEA Last Admin: 04/11/18 20:28 Dose: 4 mg Oxybutynin Chloride (Ditropan Tab*) 10 mg PO DAILY [facility] Last Admin: 04/13/18 09:01 Dose: 10 mg Pharmacy Profile Note (Vancomycin Trough Check) 1 note FOLLOW UP ONCE ONE Stop: 04/15/18 05:31 Polyethylene Glycol/Electrolytes (Miralax*) 17 gm PO 0800,2100 [facility] Objective Vital Signs: Temp Pulse Resp BP Pulse Ox 98.8 F 88 16 118/74 99 04/13/18 15:14 04/13/18 15:14 04/13/18 15:14 04/13/18 15:14 04/13/18 15:14 Vital Signs 04/12/18 04/12/18 04/13/18 19:35 21:20 00:11 Temperature 101.9 F Pulse Rate 102 Respiratory 18 18 Rate Blood Pressure 131/76 (mmHg) O2 Sat by Pulse 98 98 Oximetry Oxygen Devices in Use Now: None Appearance: obese middle aged male, poor muscle tone, appears ill. Seated on bed. Eyes: No Scleral Icterus, PERRLA Ears/Nose/Mouth/Throat: Clear Oropharnyx Neck: No Thyroid Enlargement, Masses - Abscess left neck minimally tender, supperative effusion/pus easily expressed from sight of lancing. No lymphadenopathy appreciated. Respiratory: Symmetrical Chest Expansion and Respiratory Effort, Clear to Auscultation - +cough, rhonchrous, looks in pain with coughing. Cardiovascular: NL Sounds; No Murmurs; No JVD, RRR Abdominal: - - overweight, normal bowel sounds Extremities: No Edema, No Clubbing, Cyanosis Skin: No Rash or Ulcers Neurological: Alert and Oriented x 3 Laboratory Results: 04/13/18 05:50 04/13/18 05:50 APTT 27.4 seconds (26.0-36.3) 04/11/18 13:32 Total Bilirubin 0.70 mg/dL (0.2-1.0) 04/11/18 11:55 AST 16 U/L (13-39) 04/11/18 11:55 ALT 16 U/L (7-52) 04/11/18 11:55 Alkaline Phosphatase 53 U/L (34-104) 04/11/18 11:55 Total Protein 7.3 g/dL (6.4-8.9) 04/11/18 11:55 Albumin 4.1 g/dL (3.2-5.2) 04/11/18 11:55 Globulin 3.2 g/dL (2-4) 04/11/18 11:55 Albumin/Globulin Ratio 1.3 (1-3) 04/11/18 11:55 TSH 1.48 mcIU/mL (0.34-5.60) 04/11/18 11:55 04/11/18 04/11/18 04/11/18 11:55 13:33 18:54 Troponin I 0.17 H* 0.09 H* 0.00 04/12/18 09:44 Troponin I 0.01 CRP 30 to 90's. EKG Data: Tele: NSR Assessment/Plan 47 yo male with 10 days neck abscess refractory out patient management presented with acute left CP, hypotension, appeared septic. Trop bump initially, normalized. CP now appears related to muscle fasciculation, The patients c/o still appear out of proportion to findings to date. Fevers/sweats concerning and also out of proportion to the appearance of the abscess and imaging. CP and Trops: When ID issues stabilized I recommend stress test, out patient OK, trops could be due to low BP. Hypotension: Consider checking an AM Cortisol level, ?adrenal insufficiency. Tachycardia: Amitryptilline contributes. Cardiology will follow distantly, the patient can f/u with me for follow up studies (Augusta Antonio MD, office [phone])
[2018-04-13] MEDS: Ciprofloxacin TAB* 500 MG PO SCH (21:29)
[2018-04-13] MEDS: Polyethylene Glycol 3350* 17 GM PACKET PO SCH (21:29)
[2018-04-14] MEDS: Acetaminophen TAB* 325 MG PO PRN ×2 (01:14→17:31)
[2018-04-14] MEDS: Heparin VIAL(*) 5000 UNITS/ML VIAL (FIVE THOUSAND) SUBCUT SCH ×3 (05:45→22:17)
[2018-04-14] MEDS: Amitriptyline TAB* 25 MG PO SCH (08:50)
[2018-04-14] MEDS: Oxybutynin TAB* 5 MG PO SCH (08:50)
[2018-04-14] MEDS: Citalopram TAB* 40 MG PO SCH (08:50)
[2018-04-14] MEDS: Aspirin EC TAB* 81 MG TAB.EC PO SCH (08:50)
[2018-04-14] MEDS: Ciprofloxacin TAB* 500 MG PO SCH ×2 (08:50→21:06)
[2018-04-14] MEDS: Polyethylene Glycol 3350* 17 GM PACKET PO SCH ×2 (08:50→22:17)
[2018-04-14] MEDS: busPIRone TAB* 5 MG PO SCH (08:50)
[2018-04-14] MEDS: Naproxen TAB* 250 MG PO PRN (09:02)
--- NOTE | 2018-04-14 09:13 | PN ---
Progress Note - Progress Note Date of Service: 04/14/18 Note: Asked to eval left neck infection Left neck wound with induration and erythema. No undrained collection. Re-dressed No further surgical intervention required. We will be happy to f/u in office.
[2018-04-14 09:15] LABS: C Reactive Protein 151.35 mg/L (<8.01)
--- NOTE | 2018-04-14 16:50 | PN ---
Subjective Date of Service: 04/14/18 Interval History: Mr. Jovel is feeling a little better today. His pain is improved, now 7/10 and only exacerbated when he moves quickly. He got up to the chair and bathroom earlier and now feels exhausted. Denies SOB, N/V. Nursing noted a red rash to bilat forearms. Family History: Unchanged from Admission Social History: Unchanged from Admission Past Medical History: Unchanged from Admission Objective Active Medications: Acetaminophen (Tylenol Tab*) 650 mg PO Q6H PRN FEVER/PAIN Hydrocodone Bitart/Acetaminophen ([place] 5-325 Tab*) 1 tab PO Q6H PRN PAIN Amitriptyline HCl (Elavil Tab*) 75 mg PO DAILY [facility] Aspirin (Aspirin Ec Tab*) 81 mg PO DAILY [facility] Buspirone HCl (Buspar Tab*) 5 mg PO DAILY [facility] Ciprofloxacin (Cipro Tab*) 500 mg PO Q12HR [facility] Citalopram Hydrobromide (Celexa Tab*) 40 mg PO DAILY [facility] Heparin Sodium (Porcine) (Heparin Vial(*)) 5,000 units SUBCUT Q8HR [facility] Naproxen (Naprosyn Tab*) 250 mg PO Q6H PRN PAIN Nystatin (Nystatin Top Powder*) 1 applic TOPICAL BID PRN RASH Ondansetron HCl (Zofran Inj*) 4 mg IV Q6H PRN NAUSEA Oxybutynin Chloride (Ditropan Tab*) 10 mg PO DAILY [facility] Polyethylene Glycol/Electrolytes (Miralax*) 17 gm PO 0800,2100 [facility] Vital Signs - 8 hr 04/14/18 04/14/18 11:38 15:22 Temperature 99.4 F 100.4 F Pulse Rate 111 105 Respiratory 16 18 Rate Blood Pressure 122/64 134/71 (mmHg) O2 Sat by Pulse 92 97 Oximetry Oxygen Devices in Use Now: Nasal Cannula - 2L Appearance: Middle-aged male laying in bed in NAD Eyes: No Scleral Icterus Ears/Nose/Mouth/Throat: Mucous Membranes Moist Neck: NL Appearance and Movements; NL JVP, Trachea Midline Respiratory: Symmetrical Chest Expansion and Respiratory Effort, Clear to Auscultation Cardiovascular: NL Sounds; No Murmurs; No JVD, RRR Abdominal: NL Sounds; No Tenderness; No Distention Extremities: No Edema Skin: - - Erythematous rash to BUE Neurological: Alert and Oriented x 3 Lines/Tubes/Other Access: Clean, Dry and Intact Peripheral IV Nutrition: Taking PO's Result Diagrams: 04/13/18 05:50 04/13/18 05:50 Assess/Plan/Problems-Billing Assessment: Mr. Jovel is a 47 year old man with history of a recent neck abscess that has been I&D'ed by surgery who presented to the ED yesterday with chest pain and chills and was found to have hypotension, fever, and elevated troponin. - Patient Problems (1) Abscess Code(s): L02.91 - CUTANEOUS ABSCESS, UNSPECIFIED Comment: - CT neck shows 1.5cm without tracking - Appreciate Surgery consult; no surgical intervention indicated (2) Chest pain Code(s): R07.9 - CHEST PAIN, UNSPECIFIED Comment: - With elevated trops on admission, now resolved; possibly secondary to demand ischemia - Appreciate Cardiology consult; recommends outpt stress test (3) NIKITA (acute kidney injury) Code(s): N17.9 - ACUTE KIDNEY FAILURE, UNSPECIFIED Comment: - Prerenal - Prerenal in setting of sepsis (4) Sepsis Comment: - Resolved (5) Lung nodule Code(s): R91.1 - SOLITARY PULMONARY NODULE Comment: - 1cm right lower lobe - Nonsmoker, but has had second hand exposure - Will need repeat imaging as an outpt (6) Ankylosing spondylitis Code(s): M45.9 - ANKYLOSING SPONDYLITIS OF UNSPECIFIED SITES IN SPINE Comment : - Continue naproxen (7) DVT prophylaxis Comment: - Heparin SQ (8) Full code status Code(s): Z78.9 - OTHER SPECIFIED HEALTH STATUS Comment: Status and Disposition: Inpatient. Anticipate d/c home when medically stable. Attending: Raul Montoya
[2018-04-14] MEDS ORDERED: diPHENhydraMINE PO* 25 MG PO ONE (16:54)
[2018-04-14] MEDS ORDERED: diPHENhydraMINE IV* 50 MG/ML 1 ml VIAL (BENADRYL) IV PRN (20:59)
[2018-04-14] MEDS ORDERED: cefTRIAXone(*) 1 GM in NS 0.9% 50 ML* 50 ML IVPB SCH (22:00)
[2018-04-15] MEDS: Naproxen TAB* 250 MG PO PRN ×2 (01:08→22:02)
[2018-04-15] MEDS ORDERED: Vancomycin Trough Check NOTE FOLLOW UP ONE (05:30)
[2018-04-15] MEDS: Heparin VIAL(*) 5000 UNITS/ML VIAL (FIVE THOUSAND) SUBCUT SCH ×3 (05:40→21:14)
[2018-04-15 06:11] LABS: ABS Basophils 0.1 10^3/ul (0-0.2); ABS Eosinophils 0.1 10^3/ul (0-0.6); ABS Lymphocytes 1.3 10^3/ul (1.0-4.8); ABS Monocytes 0.5 10^3/ul (0-0.8); ABS Neutrophils 5.1 10^3/ul (1.5-7.7); ABS Nucleated RBC 0 10^3/ul; Eosinophil % 1.4 %; Hematocrit 31 % (42-52); Hemoglobin 10.7 g/dl (14.0-18.0); Lymphocyte % 18.4 %; Mean Corpuscular HGB Conc 35 g/dl (31-36); Mean Corpuscular Hemoglobin 31 pg (27-31); Mean Corpuscular Volume 90 fL (80-94); Mean Platelet Volume 8.1 fL (7.4-10.4); Nucleated Red Blood Cells % 0; Platelet Count 194 10^3/ul (150-450); Red Blood Count 3.45 10^6/ul (4.00-5.40); Red Cell Distribution Width 13 % (10.5-15); White Blood Count 7.2 10^3/ul (3.5-10.8)
[2018-04-15 06:29] LABS: ALT 42 U/L (7-52); AST 44 U/L (13-39); Albumin 3.3 g/dL (3.2-5.2); Albumin/Globulin Ratio 1.2 (1-3); Alkaline Phosphatase 59 U/L (34-104); Anion Gap 7 mmol/L (2-11); BUN/Creatinine Ratio 10.7 (8-20); Blood Urea Nitrogen 8 mg/dL (6-24); CO2 Carbon Dioxide 26 mmol/L (22-32); Calcium 8.3 mg/dL (8.6-10.3); Chloride 106 mmol/L (101-111); EGFR African American 136.3 (>60); EGFR Non-African American 112.6 (>60); Globulin 2.8 g/dL (2-4); Glucose 100 mg/dL (70-100); Indirect Bilirubin 0.4 mg/dL (0.3-1.0); Magnesium 1.9 mg/dL (1.9-2.7); Potassium 3.5 mmol/L (3.5-5.0); Sodium 139 mmol/L (135-145); Total Protein 6.1 g/dL (6.4-8.9)
[2018-04-15] MEDS: Polyethylene Glycol 3350* 17 GM PACKET PO SCH ×2 (08:14→20:56)
[2018-04-15] MEDS: Amitriptyline TAB* 25 MG PO SCH (08:15)
[2018-04-15] MEDS: Citalopram TAB* 40 MG PO SCH (08:15)
[2018-04-15] MEDS: Aspirin EC TAB* 81 MG TAB.EC PO SCH (08:15)
[2018-04-15] MEDS: busPIRone TAB* 5 MG PO SCH (08:15)
[2018-04-15] MEDS: Oxybutynin TAB* 5 MG PO SCH (08:15)
[2018-04-15 08:54] LABS: % Iron Saturation 8 % (15-55); Iron 21 ug/dL (50-212); Total Iron Binding Capacity 249 mcg/dL (250-450); Transferrin 178 mg/dL (203-362)
[2018-04-15 09:31] LABS: Folate 11.99 ng/mL (>3.99)
[2018-04-15] MEDS: Cefepime 1 GM in Dextrose(*) 1 GM/50 ML BAG IV SCH ×2 (10:40→21:14)
[2018-04-15] MEDS: DOXYcycline IV* 100 MG in NS 0.9% 250 ML* 250 ML IVPB SCH ×2 (11:31→22:03)
[2018-04-15] MEDS: Cyanocobalamin TAB* 500 MCG PO SCH (12:21)
[2018-04-15 13:21] LABS: Urine Appearance Clear; Urine Bilirubin Negative (Negative); Urine Blood Negative (Negative); Urine Color Yellow; Urine Glucose Negative (Negative); Urine Ketones Negative (Negative); Urine Nitrite Negative (Negative); Urine Protein Negative (Negative); Urine Specific Gravity 1.004 (1.010-1.030); Urine Urobilinogen Negative (Negative)
[2018-04-15 13:25] LABS: Erythrocyte Sed Rate 77 mm/Hr (0-15)
--- NOTE | 2018-04-15 14:42 | PN ---
Subjective Date of Service: 04/15/18 Interval History: Patient is feeling better than admission, but is still feeling poorly. Complains of dry cough, shortness of breath with exertion, and pain in the left side of the chest, worse with breathing, not worse with exertion. Patient states his rash has improved. Patient denies dizziness on standing. Patient denies fevers but states he has intermittent chills. Patient denies abdominal pain and had a large loose BM this AM. Patient has stable pain in his groin, feelings of incomplete emptying of his bladder, and burning with urination, all of which are chronic problems for him. Family History: Unchanged from Admission Social History: Unchanged from Admission Past Medical History: Unchanged from Admission Objective Active Medications: Acetaminophen (Tylenol Tab*) 650 mg PO Q6H PRN PRN Reason: FEVER/PAIN Last Admin: 04/14/18 17:31 Dose: 650 mg Hydrocodone Bitart/Acetaminophen ([place] 5-325 Tab*) 1 tab PO Q6H PRN PRN Reason: PAIN Last Admin: 04/13/18 09:10 Dose: 1 tab Amitriptyline HCl (Elavil Tab*) 75 mg PO DAILY [facility] Last Admin: 04/15/18 08:15 Dose: 75 mg Aspirin (Aspirin Ec Tab*) 81 mg PO DAILY [facility] Last Admin: 04/15/18 08:15 Dose: 81 mg Buspirone HCl (Buspar Tab*) 5 mg PO DAILY [facility] Last Admin: 04/15/18 08:15 Dose: 5 mg Citalopram Hydrobromide (Celexa Tab*) 40 mg PO DAILY [facility] Last Admin: 04/15/18 08:15 Dose: 40 mg Cyanocobalamin (Vitamin B12 Tab*) 1,000 mcg PO DAILY [facility] Last Admin: 04/15/18 12:21 Dose: 1,000 mcg Diphenhydramine HCl (Benadryl Iv*) 25 mg IV Q6H PRN PRN Reason: PRURITIS Last Admin: 04/14/18 22:17 Dose: 25 mg Guaifenesin (Mucinex*) 1,200 mg PO BID [facility] Heparin Sodium (Porcine) (Heparin Vial(*)) 5,000 units SUBCUT Q8HR [facility] Last Admin: 04/15/18 13:46 Dose: 5,000 units Doxycycline Hyclate 100 mg/ (Sodium Chloride) 250 mls @ 250 mls/hr IVPB Q12H [facility] Last Admin: 04/15/18 11:31 Dose: 250 mls/hr Cefepime HCl (Maxipime 1 Gm In Dextrose Duplex (*)) 1 gm in 50 mls @ 100 mls/ hr IV Q12H [facility] Last Admin: 04/15/18 10:40 Dose: 100 mls/hr Naproxen (Naprosyn Tab*) 250 mg PO Q6H PRN PRN Reason: PAIN Last Admin: 04/15/18 01:08 Dose: 250 mg Nystatin (Nystatin Top Powder*) 1 applic TOPICAL BID PRN PRN Reason: RASH Ondansetron HCl (Zofran Inj*) 4 mg IV Q6H PRN PRN Reason: NAUSEA Last Admin: 04/11/18 20:28 Dose: 4 mg Oxybutynin Chloride (Ditropan Tab*) 10 mg PO DAILY [facility] Last Admin: 04/15/18 08:15 Dose: 10 mg Polyethylene Glycol/Electrolytes (Miralax*) 17 gm PO 0800,2100 [facility] Last Admin: 04/15/18 08:14 Dose: Not Given Vital Signs - 8 hr 04/15/18 04/15/18 04/15/18 07:44 08:00 11:45 Temperature 97.7 F 98.8 F Pulse Rate 97 99 Respiratory 18 18 18 Rate Blood Pressure 110/63 109/68 (mmHg) O2 Sat by Pulse 90 96 95 Oximetry Oxygen Devices in Use Now: Nasal Cannula Appearance: Patient is a 47yo male who appears stated age and is sitting in the bed in [facility]. Eyes: No Scleral Icterus, PERRLA Ears/Nose/Mouth/Throat: NL Teeth, Lips, Gums, Clear Oropharnyx, Mucous Membranes Moist Neck: NL Appearance and Movements; NL JVP, Trachea Midline Respiratory: Symmetrical Chest Expansion and Respiratory Effort, - - Diminished throughout Cardiovascular: NL Sounds; No Murmurs; No JVD, No Edema, - - Tachycardia Abdominal: NL Sounds; No Tenderness; No Distention, No Hepatosplenomegaly Lymphatic: No Cervical Adenopathy Extremities: No Edema, No Clubbing, Cyanosis Skin: No Nodules or Sclerosis, - - Macular rash worst on arms and legs, decreased on chest and neck from previous exam. Neurological: Alert and Oriented x 3, NL Sensation, NL Muscle Strength and Tone , - - CN II-XII intact. Result Diagrams: 04/15/18 05:41 04/15/18 05:41 Microbiology and Other Data: Microbiology 04/11/18 18:25 Influenza Types A,B Antigen - Final Nasal Specimen received for Influenza A/B Molecular testing Assess/Plan/Problems-Billing Assessment: Mr. Jovel is a 47 year old man with history of a recent neck abscess that has been I&D'ed by surgery who presented to the ED with chest pain and chills and was found to have hypotension, fever, and elevated troponin. Patient feels persistently poorly and is hypoxic. Patient today was found to have infiltrate on repeat CXR. - Patient Problems (1) Sepsis Current Visit: Yes Status: Acute Comment: - Resolved - Likely due to pneumonia (2) Acute respiratory failure with hypoxia Current Visit: Yes Status: Acute Code(s): J96.01 - ACUTE RESPIRATORY FAILURE WITH HYPOXIA SNOMED Code(s): 57933173 Comment: - Desaturating on room air, persistently requiring 3L O2. - Likely due to pneumonia - Negative for PE, never smoker. (3) Pneumonia Current Visit: Yes Status: Acute Code(s): J18.9 - PNEUMONIA, UNSPECIFIED ORGANISM SNOMED Code(s): 781844575 Comment: - Clear infiltrate on CXR today - Has associated fevers, cough, SOB, hypoxia, chest pain - Not present on CT chest x2. Likely blossomed with rehydration - Change antibiotics to cefepime and doxy - Not improving, has not been on consistent regimen with good respiratory activity. (4) NIKITA (acute kidney injury) Current Visit: Yes Status: Acute Code(s): N17.9 - ACUTE KIDNEY FAILURE, UNSPECIFIED SNOMED Code(s): 50672676 Comment: - Prerenal in setting of sepsis - Resolved. (5) Abscess Current Visit: Yes Status: Acute Code(s): L02.91 - CUTANEOUS ABSCESS, UNSPECIFIED SNOMED Code(s): 829885230 Comment: - CT neck shows 1.5cm without tracking - Appreciate Surgery consult; no surgical intervention indicated (6) Ankylosing spondylitis Current Visit: Yes Status: Acute Code(s): M45.9 - ANKYLOSING SPONDYLITIS OF UNSPECIFIED SITES IN SPINE SNOMED Code(s): 1707910 Comment: - Continue naproxen - No signs of advanced disease on Lumbar spinal XR. (7) Chest pain Current Visit: Yes Status: Acute Code(s): R07.9 - CHEST PAIN, UNSPECIFIED SNOMED Code(s): 77730559 Comment: - With elevated trops on admission, now resolved; possibly secondary to demand ischemia - Appreciate Cardiology consult; recommends outpt stress test (8) DVT prophylaxis Current Visit: Yes Status: Acute Code(s): FJI1449 - SNOMED Code(s): 111984787 Comment: - Heparin SQ (9) Full code status Current Visit: Yes Status: Acute Code(s): Z78.9 - OTHER SPECIFIED HEALTH STATUS SNOMED Code(s): 190031213 Comment: (10) Lung nodule Current Visit: Yes Status: Acute Code(s): R91.1 - SOLITARY PULMONARY NODULE SNOMED Code(s): 184970618 Comment: - 1cm right lower lobe - Nonsmoker, but has had second hand exposure - Will need repeat imaging as an outpt Status and Disposition: Inpatient. Anticipate d/c home when medically stable.
[2018-04-15] MEDS: guaiFENesin ER TAB 600 MG PO SCH (20:29)
[2018-04-16] MEDS: Heparin VIAL(*) 5000 UNITS/ML VIAL (FIVE THOUSAND) SUBCUT SCH ×3 (05:29→21:27)
[2018-04-16 06:06] LABS: ABS Basophils 0 10^3/ul (0-0.2); ABS Eosinophils 0.2 10^3/ul (0-0.6); ABS Lymphocytes 1.4 10^3/ul (1.0-4.8); ABS Monocytes 0.4 10^3/ul (0-0.8); ABS Neutrophils 5.4 10^3/ul (1.5-7.7); ABS Nucleated RBC 0 10^3/ul; Eosinophil % 2.5 %; Hematocrit 32 % (42-52); Hemoglobin 10.8 g/dl (14.0-18.0); Lymphocyte % 18.3 %; Mean Corpuscular HGB Conc 34 g/dl (31-36); Mean Corpuscular Hemoglobin 31 pg (27-31); Mean Corpuscular Volume 92 fL (80-94); Mean Platelet Volume 7.9 fL (7.4-10.4); Nucleated Red Blood Cells % 0.1; Platelet Count 233 10^3/ul (150-450); Red Blood Count 3.46 10^6/ul (4.00-5.40); Red Cell Distribution Width 13 % (10.5-15); White Blood Count 7.4 10^3/ul (3.5-10.8)
[2018-04-16 06:29] LABS: BUN/Creatinine Ratio 12.3 (8-20); Calcium 8.6 mg/dL (8.6-10.3); EGFR African American 140.6 (>60); EGFR Non-African American 116.2 (>60); Potassium 3.5 mmol/L (3.5-5.0)
[2018-04-16] MEDS: Cyanocobalamin TAB* 500 MCG PO SCH (09:15)
[2018-04-16] MEDS: Polyethylene Glycol 3350* 17 GM PACKET PO SCH ×2 (09:15→20:16)
[2018-04-16] MEDS: busPIRone TAB* 5 MG PO SCH (09:16)
[2018-04-16] MEDS: Citalopram TAB* 40 MG PO SCH (09:16)
[2018-04-16] MEDS: Oxybutynin TAB* 5 MG PO SCH (09:16)
[2018-04-16] MEDS: Aspirin EC TAB* 81 MG TAB.EC PO SCH (09:18)
[2018-04-16] MEDS: Amitriptyline TAB* 25 MG PO SCH (09:18)
[2018-04-16] MEDS: guaiFENesin ER TAB 600 MG PO SCH ×2 (09:18→20:16)
[2018-04-16] MEDS: Cefepime 1 GM in Dextrose(*) 1 GM/50 ML BAG IV SCH ×2 (09:59→21:27)
[2018-04-16] MEDS: DOXYcycline IV* 100 MG in NS 0.9% 250 ML* 250 ML IVPB SCH ×2 (11:16→22:09)
[2018-04-16 14:04] LABS: Neisseria gonorrhoeae (GC) RNA Negative (Negative)
--- NOTE | 2018-04-16 15:45 | PN ---
Subjective Date of Service: 04/16/18 Interval History: Patient is feeling somewhat better today. Patient has intermittent pleuritic chest pain still. Patient denies F/C, N/V, abdominal pain, dizziness, palpitations, or other pain. Patient is intermittently short of breath, patient has persistent pain with urination and pelvic pain at it's baseline. Family History: Unchanged from Admission Social History: Unchanged from Admission Past Medical History: Unchanged from Admission Objective Active Medications: Acetaminophen (Tylenol Tab*) 650 mg PO Q6H PRN PRN Reason: FEVER/PAIN Last Admin: 04/14/18 17:31 Dose: 650 mg Hydrocodone Bitart/Acetaminophen ([place] 5-325 Tab*) 1 tab PO Q6H PRN PRN Reason: PAIN Last Admin: 04/13/18 09:10 Dose: 1 tab Amitriptyline HCl (Elavil Tab*) 75 mg PO DAILY [facility] Last Admin: 04/16/18 09:18 Dose: 75 mg Aspirin (Aspirin Ec Tab*) 81 mg PO DAILY [facility] Last Admin: 04/16/18 09:18 Dose: 81 mg Buspirone HCl (Buspar Tab*) 5 mg PO DAILY [facility] Last Admin: 04/16/18 09:16 Dose: 5 mg Citalopram Hydrobromide (Celexa Tab*) 40 mg PO DAILY [facility] Last Admin: 04/16/18 09:16 Dose: 40 mg Cyanocobalamin (Vitamin B12 Tab*) 1,000 mcg PO DAILY [facility] Last Admin: 04/16/18 09:15 Dose: 1,000 mcg Diphenhydramine HCl (Benadryl Iv*) 25 mg IV Q6H PRN PRN Reason: PRURITIS Last Admin: 04/14/18 22:17 Dose: 25 mg Guaifenesin (Mucinex*) 1,200 mg PO BID [facility] Last Admin: 04/16/18 09:18 Dose: 1,200 mg Heparin Sodium (Porcine) (Heparin Vial(*)) 5,000 units SUBCUT Q8HR [facility] Last Admin: 04/16/18 14:18 Dose: 5,000 units Doxycycline Hyclate 100 mg/ (Sodium Chloride) 250 mls @ 250 mls/hr IVPB Q12H [facility] Last Admin: 04/16/18 11:16 Dose: 250 mls/hr Cefepime HCl (Maxipime 1 Gm In Dextrose Duplex (*)) 1 gm in 50 mls @ 100 mls/ hr IV Q12H [facility] Last Admin: 04/16/18 09:59 Dose: 100 mls/hr Naproxen (Naprosyn Tab*) 250 mg PO Q6H PRN PRN Reason: PAIN Last Admin: 04/15/18 22:02 Dose: 250 mg Nystatin (Nystatin Top Powder*) 1 applic TOPICAL BID PRN PRN Reason: RASH Ondansetron HCl (Zofran Inj*) 4 mg IV Q6H PRN PRN Reason: NAUSEA Last Admin: 04/11/18 20:28 Dose: 4 mg Oxybutynin Chloride (Ditropan Tab*) 10 mg PO DAILY [facility] Last Admin: 04/16/18 09:16 Dose: 10 mg Polyethylene Glycol/Electrolytes (Miralax*) 17 gm PO 0800,2100 [facility] Last Admin: 04/16/18 09:15 Dose: Not Given Tamsulosin HCl (Flomax Cap*) 0.4 mg PO BEDTIME [facility] Vital Signs - 8 hr 04/16/18 04/16/18 04/16/18 08:00 09:01 11:45 Temperature 98.2 F 97.8 F 97.7 F Pulse Rate 87 95 100 Respiratory 18 20 16 Rate Blood Pressure 127/81 145/87 141/82 (mmHg) O2 Sat by Pulse 98 97 97 Oximetry Oxygen Devices in Use Now: None Appearance: Patient is a 47yo male who appears stated age and is sitting in the bed in [facility]. Eyes: No Scleral Icterus, PERRLA Ears/Nose/Mouth/Throat: NL Teeth, Lips, Gums, Clear Oropharnyx, Mucous Membranes Moist Neck: NL Appearance and Movements; NL JVP, Trachea Midline Respiratory: Symmetrical Chest Expansion and Respiratory Effort, - - Diminished Cardiovascular: NL Sounds; No Murmurs; No JVD, No Edema, - - Tachycardic. Abdominal: NL Sounds; No Tenderness; No Distention, No Hepatosplenomegaly Lymphatic: No Cervical Adenopathy Extremities: No Edema, No Clubbing, Cyanosis Skin: No Nodules or Sclerosis, - - Fading rash on arms and trunk. Neurological: Alert and Oriented x 3, NL Sensation, NL Muscle Strength and Tone , - - CN II-XII intact. Result Diagrams: 04/16/18 05:37 04/16/18 05:37 Microbiology and Other Data: Microbiology 04/11/18 18:25 Influenza Types A,B Antigen - Final Nasal Specimen received for Influenza A/B Molecular testing Assess/Plan/Problems-Billing Assessment: Mr. Jovel is a 47 year old man with history of a recent neck abscess that has been I&D'ed by surgery who presented to the ED with chest pain and chills and was found to have hypotension, fever, and elevated troponin. Patient feels persistently poorly and is hypoxic. Patient today was found to have infiltrate on repeat CXR. - Patient Problems (1) Sepsis Current Visit: Yes Status: Acute Comment: - Resolved - Likely due to pneumonia (2) Acute respiratory failure with hypoxia Current Visit: Yes Status: Acute Code(s): J96.01 - ACUTE RESPIRATORY FAILURE WITH HYPOXIA SNOMED Code(s): 19920078 Comment: - Improving, needing O2 intermittently - Likely due to pneumonia - Negative for PE, never smoker. (3) Pneumonia Current Visit: Yes Status: Acute Code(s): J18.9 - PNEUMONIA, UNSPECIFIED ORGANISM SNOMED Code(s): 650597670 Comment: - Clear infiltrate on CXR today - Has associated fevers, cough, SOB, hypoxia, chest pain - Not present on CT chest x2. Likely blossomed with rehydration - Change antibiotics to cefepime and doxy - Now improving on appropriate antibiotics. (4) NKIITA (acute kidney injury) Current Visit: Yes Status: Acute Code(s): N17.9 - ACUTE KIDNEY FAILURE, UNSPECIFIED SNOMED Code(s): 84267158 Comment: - Prerenal in setting of sepsis - Resolved. (5) Abscess Current Visit: Yes Status: Acute Code(s): L02.91 - CUTANEOUS ABSCESS, UNSPECIFIED SNOMED Code(s): 607818059 Comment: - CT neck shows 1.5cm without tracking - Appreciate Surgery consult; no surgical intervention indicated (6) Ankylosing spondylitis Current Visit: Yes Status: Acute Code(s): M45.9 - ANKYLOSING SPONDYLITIS OF UNSPECIFIED SITES IN SPINE SNOMED Code(s): 9479031 Comment: - Continue naproxen - No signs of advanced disease on Lumbar spinal XR. (7) Chest pain Current Visit: Yes Status: Acute Code(s): R07.9 - CHEST PAIN, UNSPECIFIED SNOMED Code(s): 41040924 Comment: - With elevated trops on admission, now resolved; possibly secondary to demand ischemia - Appreciate Cardiology consult; recommends outpt stress test (8) Chronic pelvic pain in male Current Visit: Yes Status: Acute Code(s): R10.2 - PELVIC AND PERINEAL PAIN; G89.29 - OTHER CHRONIC PAIN SNOMED Code(s): 59453451 Comment: - Chronic issue with fluctuation. - Resume Flomax which has previously helped. - Follow up outpatient Urology (9) DVT prophylaxis Current Visit: Yes Status: Acute Code(s): JQP3307 - SNOMED Code(s): 162900197 Comment: - Heparin SQ (10) Full code status Current Visit: Yes Status: Acute Code(s): Z78.9 - OTHER SPECIFIED HEALTH STATUS SNOMED Code(s): 567435591 Comment: (11) Lung nodule Current Visit: Yes Status: Acute Code(s): R91.1 - SOLITARY PULMONARY NODULE SNOMED Code(s): 747024832 Comment: - 1cm right lower lobe - Nonsmoker, but has had second hand exposure - Will need repeat imaging as an outpt Status and Disposition: Inpatient. Hopeful D/C tomorrow
[2018-04-16] MEDS ORDERED: Tamsulosin CAP* 0.4 MG PO SCH (21:00)
[2018-04-16 21:43] LABS: HSV 1 PCR, CSF Negative (Negative); HSV 2 PCR, CSF Negative (Negative)
[2018-04-16] MEDS ORDERED: Benzonatate CAP* 100 MG PO PRN (22:48)
[2018-04-17] MEDS ORDERED: Benzocaine/Menthol LOZ* 1 LOZENGE MT PRN (00:33)
[2018-04-17] MEDS: Heparin VIAL(*) 5000 UNITS/ML VIAL (FIVE THOUSAND) SUBCUT SCH ×2 (05:31→14:05)
[2018-04-17 06:25] LABS: ABS Basophils 0 10^3/ul (0-0.2); ABS Eosinophils 0.2 10^3/ul (0-0.6); ABS Lymphocytes 1.3 10^3/ul (1.0-4.8); ABS Monocytes 0.4 10^3/ul (0-0.8); ABS Neutrophils 5.6 10^3/ul (1.5-7.7); ABS Nucleated RBC 0 10^3/ul; Eosinophil % 2.6 %; Hematocrit 32 % (42-52); Lymphocyte % 17.6 %; Mean Corpuscular HGB Conc 35 g/dl (31-36); Mean Corpuscular Hemoglobin 32 pg (27-31); Mean Corpuscular Volume 91 fL (80-94); Mean Platelet Volume 7.8 fL (7.4-10.4); Nucleated Red Blood Cells % 0; Platelet Count 286 10^3/ul (150-450); Red Cell Distribution Width 13 % (10.5-15); White Blood Count 7.6 10^3/ul (3.5-10.8)
[2018-04-17 06:42] LABS: BUN/Creatinine Ratio 8.7 (8-20); Calcium 8.5 mg/dL (8.6-10.3); Potassium 3.4 mmol/L (3.5-5.0)
[2018-04-17] MEDS: Oxybutynin TAB* 5 MG PO SCH (08:34)
[2018-04-17] MEDS: Citalopram TAB* 40 MG PO SCH (08:34)
[2018-04-17] MEDS: Polyethylene Glycol 3350* 17 GM PACKET PO SCH (08:34)
[2018-04-17] MEDS: Acetaminophen TAB* 325 MG PO PRN (08:34)
[2018-04-17] MEDS: guaiFENesin ER TAB 600 MG PO SCH (08:36)
[2018-04-17] MEDS: Cyanocobalamin TAB* 500 MCG PO SCH (08:36)
[2018-04-17] MEDS: busPIRone TAB* 5 MG PO SCH (08:36)
[2018-04-17] MEDS: Amitriptyline TAB* 25 MG PO SCH (08:36)
[2018-04-17] MEDS: Aspirin EC TAB* 81 MG TAB.EC PO SCH (08:36)
[2018-04-17] MEDS: Cefepime 1 GM in Dextrose(*) 1 GM/50 ML BAG IV SCH (10:40)
[2018-04-17] MEDS: DOXYcycline IV* 100 MG in NS 0.9% 250 ML* 250 ML IVPB SCH (11:16)
[2018-04-17 14:09] LABS: Cytomegalovirus IgG Antibody Negative (Negative); EBV Capsid Ag IgG Ab Negative (Negative); EBV Capsid Ag IgM Ab Negative (Negative); Epstein-Barr Nuclear Antigen Negative (Negative)
[2018-04-17 15:31] VITALS: BP 116/70
[2018-04-17 15:58] LABS: CSF VDRL Negative (Negative)
--- NOTE | 2018-04-17 20:46 | DS ---
CC: Dr. Cezar Giraldo; Dr. Alonso * DISCHARGE SUMMARY: DATE OF ADMISSION: 04/11/18 DATE OF DISCHARGE: 04/17/18 PRIMARY CARE PROVIDER: Dr. Cezar Giraldo. ATTENDING FOR THIS ADMISSION: Dr. Alonso. MY ATTENDING FOR TODAY: Dr. Irene Tanner.* (DICTATED BY STACEY OCAMPO NP) HOSPITAL COURSE: Please refer to admitting H and P dated the 04/11/18; but in short, this is a 47-year-old male patient with a past medical history significant for ankylosing spondylitis, chronic prostatitis and depression, who came to the emergency department with complaints of bradycardia and hypotension with some associated chest pain. The patient has had negative stress test in the past and did not have any other correlating symptoms or anginal equivalence. The patient had an elevated lactic acid, however, a mildly bumped troponin. He had an echocardiogram, which showed some mild right-sided volume pressure overload; however, there were no further abnormalities noted. Also, emergency department workup included CT scan of the chest and neck. The patient did have an abscess formation on his neck and we were also looking for PE. However, what was noted on his CTA and also neck and chest CTs is that he had no PE. He did, however, have a loculated fluid collection of 1.5 cm on a posterolateral neck consistent with history of abscess. There was a small amount of gas density centrally, consistent with a history of recent I and D. However, there was no extension into the subcutaneous fascia. Surgery determined that the patient did not require any additional intervention. He did have chest x-ray repeated when the patient began to have fevers and chills, which showed a left basilar infiltrate and a trace pleural effusion. The patient was initially treated with IV antibiotics and then changed to oral for discharge. He was responding well to doxycycline and cefepime. Over the last 24 hours, he has had no fevers. He does have a bit of a cough, which is unproductive in nature. Laboratories remain stable. Influenza was negative. He also had testing for a Lyme, CMV, EBV, HIV, and gonorrhea, which were all negative. Also of significant note, the patient on the 04/12/18 did also have a lumbar puncture in combination with his fevers and general malaise, he was complaining of a headache, so he was ruled out for any meningeal infection. Testing of the cerebrospinal fluid was negative. The patient was readied for discharge on 04/17/18. Again, he remained afebrile over the last 24 hours. Vital signs were stable. He had endorsed no further episodes of chest pain. Also, was ambulatory and essentially with all of his symptoms now resolved. DISCHARGE DIAGNOSES: 1. Sepsis secondary to pneumonia, now resolved. 2. Acute respiratory failure with hypoxia and oxygen dependence, now resolved. 3. Pneumonia. 4. Acute kidney injury, resolved. 5. Abscess of the neck, resolving. 6. History of ankylosing spondylitis, stable. 7. Chest pain, likely secondary to demand ischemia in the setting of pneumonia. 8. History of chronic pelvic pain, stable. 9. Incidental lung nodule noted in the right lower lobe that will require outpatient followup. DISCHARGE MEDICATIONS: Include: 1. Testosterone 100 mg IM twice monthly. 2. Flomax 0.4 mg p.o. daily. 3. Oxybutynin 10 mg p.o. daily. 4. Nystatin topical as needed. 5. Naproxen 220 mg 2 times a day as needed. 6. [place] 1 tablet q.6 hours as needed. 7. Lexapro 20 mg daily. 8. BuSpar 5 mg p.o. daily. 9. Amitriptyline 75 mg p.o. daily. 10. Mylanta 20 mg q.4 hours as needed. 11. Mucinex 1200 mg p.o. b.i.d. for 4 more days. 12. Ceftin 500 mg 1 tablet 2 times a day for 4 more days. 13. Doxycycline 100 mg 2 times a day for 4 more days. 14. Tessalon caps 100 mg p.o. b.i.d. as needed for 4 more days. 15. Tylenol 650 mg p.o. q.6 hours as needed. REVIEW OF SYSTEMS ON DAY OF DISCHARGE: The patient denies any fever, fatigue, or chills. No chest pain, no shortness of breath, no headaches, no nausea, no vomiting, no abdominal pain, no urinary complaints, and no further constitutional complaints. PHYSICAL EXAM: Reveals well-appearing gentleman with a flat affect, but in no acute distress. Vital Signs: Blood pressure 116/70, heart rate 78, O2 saturation 99% on room air, respiratory rate 16, temperature of 97.4. HEENT: The patient is atraumatic, normocephalic. PERRLA, with nonicteric sclerae. Oral mucosa is moist. Tongue is midline. Neck is supple. No JVD noted. No carotid bruit auscultated. Cardiovascular: S1, S2 present. Rate and rhythm are regular. No murmurs, gallops, or rubs noted. Lungs are clear bilaterally with no wheezing, rhonchi, or rales, mildly diminished at the bases, but again otherwise clear. Abdomen: Soft, nontender, nondistended. Moderately obese. Positive bowel sounds in all 4 quadrants. is deferred. Musculoskeletal: There is no clubbing, no cyanosis, no edema. He has +2 distal pulses palpable. Full range of motion and steady gait. Neurologic: Grossly intact with no focal deficits. Psychiatric: Cooperative and appropriate. Again, does seem to have a very flat affect at baseline. LABORATORY DATA: WBC 7.6, RBC is 3.50, hemoglobin 11.0, hematocrit 32, platelets 286. Sodium 140, potassium 3.5, chloride 106, CO2 of 27, BUN 9, creatinine 0.73, GFR is 116.2, glucose 90, calcium 8.6, magnesium 2.0. Iron 21 , TIBC is 249, iron saturation percent is 8, unsaturated iron binding is less than 234, transferrin is 178, ferritin 271. Liver function, AST 44, ALT 42, alk phos 59. CRP was elevated was 31.47 at admission, went up to 151.35 on . Folate 11.99, TSH 1.48 and morning cortisol level was 22.92. Lumbar puncture, fluid volume 4 mL, color was colorless, appearance clear, WBCs 3, RBCs 0, total cell count is 50, neutrophils 30, lymphocytes 30, monocytes 15, glucose 92, total protein 24, cryptococcus, HSV, herpes, and VDRL were all negative. Urinalysis also negative for any acute infective process. IMAGING: Chest and thorax CTA, no PE. Chest x-ray with left lower lobe infiltrate as noted above. CT of the neck with loculated abscess, also as noted above. DISPOSITION: The patient was discharged to home in stable condition. FOLLOWUP: The patient was instructed to follow up with Dr. Cezar Girlado, his primary care provider in the next 4 to 7 days. He was instructed to continue his antibiotics to complete his course and again followup with Dr. Giraldo to have his lungs reevaluated and also to reevaluate the I and D site from his abscess. TIME SPENT: Approximately 45 minutes interfacing with the patient, planning discharge plan of care. STACEY OCAMPO, IBRAHIMA [id number]/[facility] #: [id number] [place]
== END 2018-04-17 15:40 | disposition home or self-care (01) | DRG 720 ==
LOC: ED 11:42 → MEDTELE 18:27 → OBSVTOIN 04-13 14:38
PROVIDERS: ADMIT Internal Medicine; ATTEND Internal Medicine
PROC: 009U3ZX Drainage of Spinal Canal, Percutaneous Approach, Diagnostic (ICD-10-PCS; principal; 2018-04-12 13:00)
DX: A41.9 Sepsis, unspecified organism (principal); J96.01 Acute respiratory failure with hypoxia; J18.9 Pneumonia, unspecified organism; N17.9 Acute kidney failure, unspecified; I24.8 Other forms of acute ischemic heart disease; L02.11 Cutaneous abscess of neck; Z68.41 Body mass index [BMI] 40.0-44.9, adult; I95.9 Hypotension, unspecified; M45.9 Ankylosing spondylitis of unspecified sites in spine; R07.9 Chest pain, unspecified; R91.1 Solitary pulmonary nodule; R10.2 Pelvic and perineal pain; E66.9 Obesity, unspecified; N41.1 Chronic prostatitis; F32.9 Major depressive disorder, single episode, unspecified; J30.2 Other seasonal allergic rhinitis; R74.8 Abnormal levels of other serum enzymes; R51 Headache; G47.33 Obstructive sleep apnea (adult) (pediatric); N40.0 Benign prostatic hyperplasia without lower urinary tract symptoms; J30.9 Allergic rhinitis, unspecified; Z79.890 Hormone replacement therapy; Z79.899 Other long term (current) drug therapy; Z82.61 Family history of arthritis; Z82.49 Family history of ischemic heart disease and other diseases of the circulatory system
CPT/HCPCS: 36415; 62270; 70491; 71045; 71046; 71260; 71275; 72100; 80048; 80053; 80076; 80202; 80307; 81003; 82164; 82533; 82607; 82728; 82746; 82945; 83540; 83550; 83605; 83735; 84157; 84443; 84484; 85025; 85379; 85652; 85730; 86140; 86592; 86618; 86644; 86645; 86664; 86665; 86703; 87040; 87070; 87205; 87491; 87529; 87536; 87591; 87899; 89051; 93005; 93306; 99285; A9270-GY; C8929; G0378; J0692; J0696; J1200; J1644; J2270; J2405; J2543; J3370; Q9967

== ENCOUNTER 2023-12-26 11:04 | Inpatient (IN) ==
[2023-12-26 11:32] LABS: ABS Basophils 0.1 10^3/uL (0.0-0.1); ABS Lymphocytes 0.4 10^3/uL (1.0-4.8); ABS Monocytes 0.5 10^3/uL (0.0-1.1); ABS Nucleated RBC 0.01 10^3/ul; Eosinophil % 0.4 %; Hematocrit 37.5 % (38-53); Hemoglobin 12.9 g/dL (13.2-16.3); Lymphocyte % 5.5 %; Mean Corpuscular Hemoglobin 30.9 pg (27-33); Mean Corpuscular Hgb Conc 34.5 g/dL (31-36); Mean Corpuscular Volume 89.7 fL (80-97); Mean Platelet Volume 7.9 fL (7.5-11.2); Nucleated Red Blood Cells % 0.1 %/100WBC (0.0-0.8); Platelet Count 227 10^3/uL (150-450); Red Blood Count 4.18 10^6/uL (4.06-5.63); Red Cell Distribution Width 13.1 % (12-17)
[2023-12-26 11:47] LABS: INR 1.17 (0.85-1.14)
[2023-12-26] MEDS: NS 0.9% 500 ml BAG 500 ML IV ONE (12:19)
[2023-12-26 12:25] LABS: Albumin 4.1 g/dL (3.2-5.2); Albumin/Globulin Ratio 1.5 (1-3); Creatinine, Serum 1.38 mg/dL (0.67-1.17); Globulin 2.8 g/dL (2-4); Potassium 4.2 mmol/L (3.5-5.0); Total Bilirubin 1.1 mg/dL (0.2-1.0); Total Protein 6.9 g/dL (6.4-8.9); eGFR CKD-EPI 61.9 (>60)
[2023-12-26] MEDS: Ondansetron 4 mg VIAL 2 MG/ML 2 ml VIAL IV ONE (12:48)
[2023-12-26 14:02] LABS: Magnesium 1.8 mg/dL (1.9-2.7)
[2023-12-26 14:15] LABS: High Sensitivity Troponin 1 Hr 6 pg/mL (<20)
[2023-12-26] MEDS: Magnesium Sulfate IV 1GM/100ML 1 GM/100 ML BAG IV ONE (14:30)
[2023-12-26] MEDS: Sulfamethox/Trimethoprim DS TAB 800/160 mg PO SCH (18:05)
[2023-12-26] MEDS: Lactated Ringers 1000 ml BAG 1,000 ML IV SCH (18:05)
[2023-12-26 22:50] LABS: HIV 4th Generation Nonreactive (Nonreactive)
[2023-12-26 23:06] LABS: Hepatitis C Antibody Negative (Negative)
[2023-12-26 23:32] LABS: High Sensitivity Troponin 1 Hr 6 pg/mL (<20)
[2023-12-27 07:05] LABS: ABS Lymphocytes 0.4 10^3/uL (1.0-4.8); ABS Monocytes 0.5 10^3/uL (0.0-1.1); ABS Neutrophils 5.4 10^3/uL (1.5-7.6); Eosinophil % 0.8 %; Hematocrit 34.6 % (38-53); Hemoglobin 12.1 g/dL (13.2-16.3); Lymphocyte % 6.8 %; Mean Corpuscular Hemoglobin 31.2 pg (27-33); Mean Corpuscular Hgb Conc 34.9 g/dL (31-36); Mean Corpuscular Volume 89.4 fL (80-97); Mean Platelet Volume 8.1 fL (7.5-11.2); Platelet Count 214 10^3/uL (150-450); Red Blood Count 3.87 10^6/uL (4.06-5.63); Red Cell Distribution Width 13.3 % (12-17); White Blood Count 6.4 10^3/uL (3.6-10.2)
[2023-12-27 07:32] LABS: Calcium 8.5 mg/dL (8.6-10.3); Creatinine, Serum 1.24 mg/dL (0.67-1.17); Magnesium 1.8 mg/dL (1.9-2.7); Potassium 4.4 mmol/L (3.5-5.0); eGFR CKD-EPI 70.4 (>60)
[2023-12-27] MEDS: Magnesium Sulfate 2 gm BAG 2 GM/50 ML BAG IVPB ONE (08:39)
[2023-12-27] MEDS: NS 0.9% 1000 ml BAG 1,000 ML IV SCH (08:42)
[2023-12-27] MEDS: Sulfur Hexaflouride MICROSPHR 25 MG VIAL IV PRN (09:15)
[2023-12-27 12:07] LABS: Urine Appearance Clear; Urine Bilirubin Negative (Negative); Urine Blood Negative (Negative); Urine Color Yellow; Urine Glucose Negative (Negative); Urine Ketones Negative (Negative); Urine Nitrite Negative (Negative); Urine Protein Trace (Negative); Urine Specific Gravity 1.019 (1.002-1.030); Urine Urobilinogen Negative (Negative)
[2023-12-27 12:10] LABS: Urine Bacteria Absent /HPF (Absent); Urine Red Blood Cell Trace(0-2/hpf) /HPF (0-Trace); Urine White Blood Cell 1+(6-10/hpf) /HPF (0-Trace)
[2023-12-27 22:39] LABS: High Sensitivity Troponin 1 Hr 102 pg/mL (<20)
[2023-12-28] MEDS: Heparin 5000 UNITS/ML 1 mL VIAL IV SCH (00:01)
[2023-12-28] MEDS: Heparin DRIP 25,000 UNITS BAG 25,000 UNITS/250 ML BAG IV SCH (00:02)
[2023-12-28 00:10] LABS: High Sensitivity Troponin 3 Hr 82 pg/mL (<20)
[2023-12-28 06:55] LABS: ABS Lymphocytes 0.5 10^3/uL (1.0-4.8); ABS Monocytes 0.4 10^3/uL (0.0-1.1); ABS Neutrophils 4.9 10^3/uL (1.5-7.6); Eosinophil % 0.7 %; Hematocrit 34.5 % (38-53); Hemoglobin 12.1 g/dL (13.2-16.3); Lymphocyte % 9.2 %; Mean Corpuscular Hemoglobin 31.6 pg (27-33); Mean Corpuscular Volume 90.2 fL (80-97); Mean Platelet Volume 8.2 fL (7.5-11.2); Nucleated Red Blood Cells % 0.1 %/100WBC (0.0-0.8); Platelet Count 186 10^3/uL (150-450); Red Blood Count 3.82 10^6/uL (4.06-5.63); Red Cell Distribution Width 13.3 % (12-17); White Blood Count 5.9 10^3/uL (3.6-10.2)
[2023-12-28 08:14] LABS: Anion Gap 11 mmol/L (2-16); Blood Urea Nitrogen 14 mg/dL (6-24); CO2 Carbon Dioxide 23 mmol/L (22-32); Calcium 8.4 mg/dL (8.6-10.3); Chloride 97 mmol/L (101-111); Creatinine, Serum 1.04 mg/dL (0.67-1.17); Glucose 105 mg/dL (70-100); Potassium 4.3 mmol/L (3.5-5.0); Sodium 131 mmol/L (135-145); eGFR CKD-EPI 86.9 (>60)
[2023-12-28 08:18] LABS: CRP High Sensitivity > 80.00 mg/L (<2.00)
[2023-12-28] MEDS ORDERED: Zosyn per Pharmacy NOTE FOLLOW UP SCH ×2 (14:00)
[2023-12-28] MEDS: Piperacillin/Tazobac 3.375 BAG 3.375 GM/100 ML BAG IV ONE (15:16)
[2023-12-28] MEDS: ZOSYN 3.375 GM Q8H per EXTENDED INFUSION IV SCH (20:07)
[2023-12-29] MEDS: Fluticasone NASAL SPRAY 50MCG 16 gm SPRAY BTL BOTH NARES SCH (04:30)
[2023-12-29 05:41] LABS: ABS Eosinophils 0.1 10^3/uL (0.0-0.5); ABS Monocytes 0.5 10^3/uL (0.0-1.1); ABS Neutrophils 6.2 10^3/uL (1.5-7.6); Eosinophil % 0.6 %; Hematocrit 32.2 % (38-53); Hemoglobin 11.2 g/dL (13.2-16.3); Lymphocyte % 13.2 %; Mean Corpuscular Hemoglobin 31.2 pg (27-33); Mean Corpuscular Hgb Conc 34.7 g/dL (31-36); Mean Platelet Volume 8.2 fL (7.5-11.2); Platelet Count 201 10^3/uL (150-450); Red Blood Count 3.58 10^6/uL (4.06-5.63); Red Cell Distribution Width 13.3 % (12-17); White Blood Count 7.9 10^3/uL (3.6-10.2)
[2023-12-29 06:26] LABS: Calcium 8.2 mg/dL (8.6-10.3); Creatinine, Serum 1.1 mg/dL (0.67-1.17); Potassium 4.2 mmol/L (3.5-5.0); eGFR CKD-EPI 81.3 (>60)
[2023-12-30] MEDS: Polyethylene Glycol 3350 17 GM PACKET PO PRN (06:20)
[2023-12-30] MEDS: Senna TAB 8.6 mg TAB PO PRN (06:20)
[2023-12-30 06:22] LABS: ABS Eosinophils 0.1 10^3/uL (0.0-0.5); ABS Monocytes 0.5 10^3/uL (0.0-1.1); ABS Neutrophils 7.6 10^3/uL (1.5-7.6); Eosinophil % 1.5 %; Hemoglobin 10.7 g/dL (13.2-16.3); Lymphocyte % 11.2 %; Mean Corpuscular Hemoglobin 31.2 pg (27-33); Mean Corpuscular Hgb Conc 34.4 g/dL (31-36); Mean Corpuscular Volume 90.5 fL (80-97); Mean Platelet Volume 8.4 fL (7.5-11.2); Platelet Count 244 10^3/uL (150-450); Red Blood Count 3.42 10^6/uL (4.06-5.63); Red Cell Distribution Width 13.4 % (12-17); White Blood Count 9.3 10^3/uL (3.6-10.2)
[2023-12-30 11:54] LABS: Calcium 8.6 mg/dL (8.6-10.3); Creatinine, Serum 1.18 mg/dL (0.67-1.17); Potassium 4.1 mmol/L (3.5-5.0); eGFR CKD-EPI 74.7 (>60)
[2023-12-30] MEDS ORDERED: Heparin 5000 UNITS/ML 1 mL VIAL IV SCH (12:00)
[2023-12-30 12:06] LABS: ABS Basophils 0.1 10^3/uL (0.0-0.1); ABS Eosinophils 0.1 10^3/uL (0.0-0.5); ABS Lymphocytes 1.1 10^3/uL (1.0-4.8); ABS Monocytes 0.5 10^3/uL (0.0-1.1); ABS Neutrophils 7.9 10^3/uL (1.5-7.6); Eosinophil % 1.2 %; Hematocrit 32.2 % (38-53); Hemoglobin 11.1 g/dL (13.2-16.3); Lymphocyte % 11.2 %; Mean Corpuscular Hemoglobin 31.2 pg (27-33); Mean Corpuscular Hgb Conc 34.4 g/dL (31-36); Mean Corpuscular Volume 90.6 fL (80-97); Mean Platelet Volume 8.8 fL (7.5-11.2); Platelet Count 251 10^3/uL (150-450); Red Blood Count 3.55 10^6/uL (4.06-5.63); Red Cell Distribution Width 13.3 % (12-17); White Blood Count 9.6 10^3/uL (3.6-10.2)
[2023-12-30 13:12] LABS: High Sensitivity Troponin 1 Hr 5006 pg/mL (<20)
[2023-12-30 13:20] LABS: Creatinine, Serum 1.09 mg/dL (0.67-1.17); eGFR CKD-EPI 82.2 (>60)
[2023-12-30] MEDS: Heparin DRIP 25,000 UNITS BAG 25,000 UNITS/250 ML BAG IV SCH (13:33)
[2023-12-30] MEDS: Heparin 5000 UNITS/ML 1 mL VIAL IV PRN (13:37)
[2023-12-30 13:43] LABS: HDL Cholesterol 22.8 mg/dL
[2023-12-31 04:10] LABS: ABS Basophils 0.1 10^3/uL (0.0-0.1); ABS Eosinophils 0.1 10^3/uL (0.0-0.5); ABS Lymphocytes 1.6 10^3/uL (1.0-4.8); ABS Monocytes 0.5 10^3/uL (0.0-1.1); ABS Neutrophils 5.6 10^3/uL (1.5-7.6); Eosinophil % 1.6 %; Hematocrit 29.8 % (38-53); Hemoglobin 10.3 g/dL (13.2-16.3); Mean Corpuscular Hemoglobin 31.4 pg (27-33); Mean Corpuscular Hgb Conc 34.4 g/dL (31-36); Mean Corpuscular Volume 91.2 fL (80-97); Mean Platelet Volume 8.6 fL (7.5-11.2); Platelet Count 253 10^3/uL (150-450); Red Blood Count 3.27 10^6/uL (4.06-5.63); Red Cell Distribution Width 13.5 % (12-17); White Blood Count 7.9 10^3/uL (3.6-10.2)
[2023-12-31 05:00] LABS: Calcium 8.3 mg/dL (8.6-10.3); Creatinine, Serum 1.07 mg/dL (0.67-1.17); Magnesium 2.1 mg/dL (1.9-2.7); Potassium 4.2 mmol/L (3.5-5.0)
[2023-12-31] MEDS: NS 0.9% 1000 ml BAG 1,000 ML IV SCH (17:32)
[2023-12-31] MEDS ORDERED: Lactated Ringers 1000 ml BAG 1,000 ML IV SCH (22:00)
[2024-01-01] MEDS: NS 0.9% 1000 ml BAG 1,000 ML IV SCH (04:37)
[2024-01-01] MEDS: Sulfur Hexaflouride MICROSPHR 25 MG VIAL IV PRN (09:21)
[2024-01-01 10:12] LABS: ABS Basophils 0.1 10^3/uL (0.0-0.1); ABS Eosinophils 0.1 10^3/uL (0.0-0.5); ABS Lymphocytes 1.4 10^3/uL (1.0-4.8); ABS Monocytes 0.5 10^3/uL (0.0-1.1); ABS Neutrophils 4.4 10^3/uL (1.5-7.6); Eosinophil % 1.5 %; Hematocrit 29.9 % (38-53); Hemoglobin 10.2 g/dL (13.2-16.3); Lymphocyte % 22.5 %; Mean Corpuscular Hemoglobin 31.2 pg (27-33); Mean Corpuscular Hgb Conc 34.1 g/dL (31-36); Mean Corpuscular Volume 91.3 fL (80-97); Mean Platelet Volume 8.4 fL (7.5-11.2); Nucleated Red Blood Cells % 0.1 %/100WBC (0.0-0.8); Platelet Count 280 10^3/uL (150-450); Red Blood Count 3.27 10^6/uL (4.06-5.63); Red Cell Distribution Width 13.5 % (12-17); White Blood Count 6.4 10^3/uL (3.6-10.2)
[2024-01-01 11:01] LABS: Creatinine, Serum 0.97 mg/dL (0.67-1.17); Magnesium 2.2 mg/dL (1.9-2.7); Potassium 4.1 mmol/L (3.5-5.0); eGFR CKD-EPI 94.5 (>60)
[2024-01-01] MEDS ORDERED: Heparin 2 UNITS/ML 1000 mls 3,000 ML IV ONE (13:29)
[2024-01-01] MEDS ORDERED: Heparin 1,000 UNIT/ML 10 ml (10,000 UNITS) CATHLAB/DIALYSIS ONE (13:30)
[2024-01-01] MEDS ORDERED: Lidocaine 1% MPF 5 ML VIAL ONE ×2 (13:31)
[2024-01-01] MEDS ORDERED: Midazolam 5 mg/5 ml VIAL 1 mg/ml 5 ml VIAL (5 mg) ONE (13:31)
[2024-01-01] MEDS ORDERED: fentaNYL 100 mcg/2 ml 50 MCG/ML VIAL ONE (13:31)
[2024-01-01] MEDS ORDERED: niCARdipine 0.1MG/ML IVPREMIX 20 MG/200 ML BAG IV ONE (13:31)
[2024-01-01] MEDS ORDERED: Iohexol 350 (CONTRAST) 100 ML PAK IV ONE ×2 (13:32→14:14)
[2024-01-01] MEDS ORDERED: nitroGLYCERIN DRIP 25,000 MCG/250 ML BTL ONE (13:35)
[2024-01-02 06:58] LABS: Calcium 8.3 mg/dL (8.6-10.3); Creatinine, Serum 0.95 mg/dL (0.67-1.17); Potassium 4.3 mmol/L (3.5-5.0); eGFR CKD-EPI 96.9 (>60)
[2024-01-02] MEDS: Enoxaparin 40 MG/0.4 ML SYR SUBCUT SCH (17:56)
[2024-01-03 09:33] VITALS: BP 123/80
== END 2024-01-03 10:45 | disposition home or self-care (01) | DRG 720 ==
LOC: ED 11:04 → EDHOLD 11:04 → SUATTDRO 15:41 → MEDTELE 16:36 → SUATTDRO 12-28 10:58
PROVIDERS: ADMIT Internal Medicine; ATTEND Student in an Organized Health Care Education/Training Program